=== PATIENT | female | born 1980 | race African-American/Black ===

== ENCOUNTER 2020-04-11 18:01 | Emergency (ER) | payer MEDICAID, SELFPAY ==
[2020-04-11 18:35] VITALS: BP 155/90; PULSE 91; RESP 18; TEMP 36.8; O2SAT 97; BMI 48.0
[2020-04-11 18:44] LABS: Glucose, Whole Blood 312 mg/dL (60-115)
[2020-04-11 21:26] LABS: MANUAL DIFF FLAG NO
[2020-04-11 21:31] LABS: Basophils Absolute Auto 0.1 X10*3/uL (0.0-0.2); Basophils Percent Auto 0.9 % (0-2); Eosinophils Absolute Auto 0.2 X10*3/uL (0.0-0.4); Eosinophils Percent Auto 1.8 % (0-4); Hematocrit 35.7 % (37-47); Hemoglobin 11.5 g/dl (12.0-16.0); Imm Gran Abs Auto 0.03 X10*3/uL (0.00-0.03); Imm Gran Pct Auto 0.3 % (0.0-0.4); Lymphocytes Absolute Auto 3.8 X10*3/uL (1.2-4.9); Lymphocytes Percent Auto 33.9 % (20-40); Mean Corpuscular HGB Conc 32.2 g/dl (31.0-35.0); Mean Corpuscular Hemoglobin 26.8 pg (27.0-33.0); Mean Corpuscular Volume 83.2 fL (80-98); Mean Platelet Volume 11.2 fL (9.4-12.3); Monocytes Absolute Auto 0.8 X10*3/uL (0.1-1.2); Monocytes Percent Auto 7.2 % (2-11); Neutrophils Absolute Auto 6.2 X10*3/uL (2.0-8.3); Neutrophils Percent Auto 55.9 % (45-73); Platelet Count 372 X10*3/uL (160-400); Red Blood Count 4.29 X10*6/uL (4.20-5.50); Red Cell Distribution Width 16.1 % (11.0-16.0); White Blood Count 11.1 X10*3/uL (4.8-10.8)
[2020-04-11 21:37] LABS: Acetone, serum QL Negative (Negative)
[2020-04-11 21:55] LABS: Alanine Aminotransferase 15 U/L (0-31); Alkaline Phosphatase 79 U/L (39-117); Anion Gap 11 (12-20); Aspartate Amino Transferase 12 U/L (5-31); Bilirubin Total 0.2 mg/dL (0.0-1.0); Blood Urea Nitrogen 14 mg/dL (9-16); Carbon Dioxide 26 mmol/L (22-29); Chloride 104 mmol/L (96-108); Creatinine Clr Calc Pharmacy 116.9; Estimated Glomerular Filt Rate 58; Glucose Random 367 mg/dL (60-115); Potassium 4.4 mmol/l (3.3-5.1); Sodium 137 mmol/L (135-145); Total Protein 7.3 g/dL (6.5-8.0)
--- NOTE | 2020-04-11 22:17 | PC.NURSE ---
at bedside for primary eval.
[2020-04-11 22:24] VITALS: BP 116/60; PULSE 92; RESP 20; TEMP 36.7; O2SAT 97
--- NOTE | 2020-04-11 22:24 | PC.NURSE ---
Per MD, plan to obtain UA and proceed from there. Per MD, to hold off on IV until labs are resulted. office automation technician at bedside to update VS. Continue to monitor.
[2020-04-11 22:36] LABS: Glucose Urine UA 500 MG/DL (NEG); Leukocyte Esterase Urine NEG (NEG); Nitrite Urine NEG (NEG); Specific Gravity - Urine >= 1.030 (1.005-1.025); Urine Blood NEG (NEG); Urine Ketones NEG (NEG); Urine Protein NEG (NEG-TRACE)
[2020-04-11 22:41] LABS: Appearance Urine CLEAR; Color Urine YELLOW
[2020-04-11 22:42] LABS: UPreg QC Valid YES; Urine Pregnancy NEGATIVE (NEGATIVE)
--- NOTE | 2020-04-11 22:47 | ED_ITS ---
HPI - General Adult General Chief complaint: General Medical Stated complaint: sugar high Time Seen by Provider: 04/11/20 22:47 Source: patient Mode of arrival: ambulatory History of Present Illness HPI narrative: This is a 39-year-old female who states that she was recently diagnosed with diabetes in September and is currently taking Lantus and was sent in by her program for concerns regarding her elevated sugar level. She states that this is not been associated with any recent fever, chills, sore throat, cough, nausea, vomiting, abdominal discomfort, or urinary pain/burning/frequency. She states that earlier in the day the staff said that she was difficult to wake up but she said that she just ?felt tired?. Otherwise, she denies any urinary frequency or thirst. Review of Systems 2 Review of Systems: Pertinent positives and negatives as stated in HPI 10 point review of systems is otherwise negative. [facility] Past Medical History Source: nursing notes reviewed Medical History Asthma Diabetes Hypertension Social History Social History Advance Directives: No Advance Directives Information Provided: No Physical Exam Vital Signs: Vital Signs: Last Vital Signs Temp 98.0 F 04/11/20 22:24 Pulse 92 04/11/20 22:24 Resp 20 04/11/20 22:24 BP 116/60 04/11/20 22:24 Pulse Ox 97 04/11/20 22:24 Body Mass Index 48.0 VITAL SIGNS: Reviewed. GENERAL: Well developed, well nourished, in no acute distress. HEAD: Normocephalic/atraumatic, EYES: PERRLA, EOMI EARS: Ext canals without abnormality NOSE: Nares patent bilateral OROPHARYNX: no oral lesions noted, posterior pharynx clear NECK: Supple, no adenopathy LUNGS: Normal breath sounds. No adventitious sounds or accessory muscle use. SpO2<97> CARDIOVASCULAR: Regular rate and rhythm without noted murmurs, no JVD or lower extremity edema. ABDOMEN: Soft, non-tender, non-distended with bowel sounds. No rigidity. No guarding. No palpable masses or hernias noted MUSCULOSKELETAL: No tenderness, deformities, or effusions noted on gross inspection. EXTREMITIES: No cyanosis, clubbing or edema. SKIN: Inspection of the skin reveals no rashes NEUROLOGIC: Alert and oriented x 4. Course Course Course Narrative: This is a 39-year-old female with history and clinical p resentation suggestive of hyperglycemia more indicative of poorly controlled diabetes than any sequela associated with this such as DKA or HHS. However, will rule out these conditions as well as any evidence for infection. On review of all investigations there are no acute findings to point towards infection, , and patient will be discharged in stable condition after discussing all of her results with her at bedside and struck shins to follow-up with her primary care provider for additional management of her diabetes. Medical Decision Making Lab Data Result diagrams: 04/11/20 21:19 04/11/20 21:19 Labs: Lab Results 04/11/20 04/11/20 04/11/20 Range/Units 18:38 21:19 21:19 WBC 11.1 H (4.8-10.8) X10*3/uL RBC 4.29 (4.20-5.50) X10*6/uL Hgb 11.5 L (12.0-16.0) g/dl Hct 35.7 L (37-47) % MCV 83.2 (80-98) fL MCH 26.8 L (27.0-33.0) pg MCHC 32.2 (31.0-35.0) g/dl RDW 16.1 H (11.0-16.0) % Plt Count 372 (160-400) X10*3/uL MPV 11.2 (9.4-12.3) fL Immature Gran % (Auto) 0.3 (0.0-0.4) % Neut % (Auto) 55.9 (45-73) % Lymph % (Auto) 33.9 (20-40) % [place] % (Auto) 7.2 (2-11) % Eos % (Auto) 1.8 (0-4) % Baso % (Auto) 0.9 (0-2) % Lymph # (Auto) 3.8 (1.2-4.9) X10*3/uL [place] # (Auto) 0.8 (0.1-1.2) X10*3/uL Eos # (Auto) 0.2 (0.0-0.4) X10*3/uL Baso # (Auto) 0.1 (0.0-0.2) X10*3/uL Abs Immat Gran (auto) 0.03 (0.00-0.03) X10*3/uL Absolute Neuts (auto) 6.2 (2.0-8.3) X10*3/uL Absolute Nucleated RBC 0.000 (0.0-0.012) X10*3/uL Nucleated RBC % (auto) 0.0 (0.0-0.2) /100WBC Hold Blue Top SEE NOTE Sodium (135-145) mmol/L Potassium (3.3-5.1) mmol/l Chloride (96-108) mmol/L Carbon Dioxide (22-29) mmol/L Anion Gap (12-20) BUN (9-16) mg/dL Creatinine (0.5-1.4) mg/dL Estim Creat Clear Calc Estimated GFR POC Glucose 312 H (60-115) mg/dL Random Glucose (60-115) mg/dL Calcium (8.4-10.2) mg/dL Total Bilirubin (0.0-1.0) mg/dL AST (5-31) U/L ALT (0-31) U/L Alkaline Phosphatase (39-117) U/L Total Protein (6.5-8.0) g/dL Albumin (3.5-5.0) g/dL Urine Color Urine Appearance Urine pH (5.0-8.0) Ur Specific [place] (1.005-1.025) Urine Protein (NEG-TRACE) MG/DL Urine Glucose (UA) (NEG) MG/DL Urine Ketones (NEG) MG/DL Urine Blood (NEG) Urine Nitrite (NEG) Ur Leukocyte Esterase (NEG) Urine Test (NEGATIVE) Acetone, Qual (Negative) 04/11/20 04/11/20 04/11/20 Range/Units 21:19 21:19 22:26 WBC (4.8-10.8) X10*3/uL RBC (4.20-5.50) X10*6/uL Hgb (12.0-16.0) g/dl Hct (37-47) % MCV (80-98) fL MCH (27.0-33.0) pg MCHC (31.0-35.0) g/dl RDW (11.0-16.0) % Plt Count (160-400) X10*3/uL MPV (9.4-12.3) fL Immature Gran % (Auto) (0.0-0.4) % Neut % (Auto) (45-73) % Lymph % (Auto) (20-40) % [place] % (Auto) (2-11) % Eos % (Auto) (0-4) % Baso % (Auto) (0-2) % Lymph # (Auto) (1.2-4.9) X10*3/uL [place] # (Auto) (0.1-1.2) X10*3/uL Eos # (Auto) (0.0-0.4) X10*3/uL Baso # (Auto) (0.0-0.2) X10*3/uL Abs Immat Gran (auto) (0.00-0.03) X10*3/uL Absolute Neuts (auto) (2.0-8.3) X10*3/uL Absolute Nucleated RBC (0.0-0.012) X10*3/uL Nucleated RBC % (auto) (0.0-0.2) /100WBC Hold Blue Top Sodium 137 (135-145) mmol/L Potassium 4.4 (3.3-5.1) mmol/l Chloride 104 (96-108) mmol/L Carbon Dioxide 26 (22-29) mmol/L Anion Gap 11 L (12-20) BUN 14 (9-16) mg/dL Creatinine 1.06 (0.5-1.4) mg/dL Estim Creat Clear Calc 116.9 Estimated GFR 58 POC Glucose (60-115) mg/dL Random Glucose 367 H* (60-115) mg/dL Calcium 9.0 (8.4-10.2) mg/dL Total Bilirubin 0.2 (0.0-1.0) mg/dL AST 12 (5-31) U/L ALT 15 (0-31) U/L Alkaline Phosphatase 79 (39-117) U/L Total Protein 7.3 (6.5-8.0) g/dL Albumin 4.0 (3.5-5.0) g/dL Urine Color YELLOW Urine Appearance CLEAR Urine pH 6.0 (5.0-8.0) Ur Specific [place] >= 1.030 H (1.005-1.025) Urine Protein NEG (NEG-TRACE) MG/DL Urine Glucose (UA) 500 H (NEG) MG/DL Urine Ketones NEG (NEG) MG/DL Urine Blood NEG (NEG) Urine Nitrite NEG (NEG) Ur Leukocyte Esterase NEG (NEG) Urine Test NEGATIVE (NEGATIVE) Acetone, Qual Negative (Negative) Discharge Plan Discharge Clinical Impression: Hyperglycemia without ketosis Patient Disposition: Home, Self-Care Instructions: Diabetes and Exercise (ED), Diabetic Hyperglycemia (ED), Mediterranean Diet (DC) Additional Instructions: 1. Please follow-up with your primary care provider by calling the office in the morning for further evaluation and outpatient management of your diabetes. Please do not hesitate to return emergency department should you do developed s hortness of breath, fevers/chills that do not respond to Tylenol, chest pain. Referrals: Physician,Unknown [Primary Care Provider] - 2 days (Re-evaluation and outpatient management of diabetes.)
[2020-04-11 23:24] VITALS: BP 112/55; PULSE 82; RESP 16
[2020-04-11 23:25] LABS: Glucose, Whole Blood 295 mg/dL (60-115)
--- NOTE | 2020-04-11 23:30 | PC.NURSE ---
This RN calling [facility] for transportation home. 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
== END 2020-04-11 23:43 | disposition home or self-care (01) ==
PROVIDERS: Emergency Provider Student in an Organized Health Care Education/Training Program
DX: E11.65 Type 2 diabetes mellitus with hyperglycemia (principal); Z79.4 Long term (current) use of insulin; I10 Essential (primary) hypertension
CPT/HCPCS: 36415; 80053; 81003; 81025; 82009; 82947; 85025; 99283; 99284

== ENCOUNTER 2020-05-04 12:28 | Emergency (ER) | payer MEDICAID, SELFPAY ==
--- NOTE | ~2020-05-04 | XR_ITS ---
EXAMINATION: XR ABDOMEN KUB CLINICAL INDICATION: Evaluate for constipation COMPARISON: None TECHNIQUE: AP view of the abdomen. FINDINGS: The bowel gas pattern is normal with no evidence of ileus or obstruction. There is a moderate amount of dense stool throughout the colon. No unusual soft tissue calcifications are noted. The bones are unremarkable. There are surgical clips in the left upper quadrant. XR/XR KUB IMPRESSION: Nonobstructive bowel gas pattern. Moderate amount of dense stool throughout the colon. Findings may be related to a prior contrast-enhanced examination or fluoroscopic study. Recommend clinical correlation.
[2020-05-04 12:30] VITALS: BP 102/61; PULSE 111; RESP 16; TEMP 36.8; O2SAT 99; BMI 33.0
--- NOTE | 2020-05-04 16:22 | ECG_ITS ---
Test Reason : ABDOMIANL PAIN Blood Pressure : / mmHG Vent. Rate : 095 BPM Atrial Rate : 095 BPM P-R Int : 194 ms QRS Dur : 100 ms QT Int : 372 ms P-R-T Axes : 068 024 066 degrees QTc Int : 467 ms Normal sinus rhythm Normal ECG No previous ECGs available Referred By: Jesus Crespo Electronically Signed By:BRENDA MARTINEZ
--- NOTE | 2020-05-04 16:54 | ED.ABDPAIN ---
HPI - Abdominal Pain General Chief Complaint: Abdominal Pain Stated Complaint: vomiting Time Seen by Provider: 05/04/20 17:53 Source: patient Mode of arrival: ambulatory Limitations: no limitations History of Present Illness HPI narrative: Patient presents to ED for abdominal pain, nausea, and vomiting for the past 2 weeks. Patient states she was recently diagnosed with diabetes in September and since then having having dystonic issues. Patient states pain the right upper quadrant. Patient states no fever or chills. Patient states the past 2 weeks having abdominal pain with nausea. Denies any coughing, chest pain, shortness of breath, swelling of lower extremities, or diarrhea. Related Data Previous Rx's Medication Instructions Recorded lactulose 20 g PO DAILY 3 Days #1 ea 05/04/20 ondansetron HCl [Zofran] 4 mg PO Q8H PRN #8 tab 05/04/20 Allergies Allergy/AdvReac Type Severity Reaction Status Date / Time ibuprofen [From Motrin] AdvReac Dry Mucus Verified 05/04/20 12:32 Membranes morphine AdvReac Dry Mucus Verified 05/04/20 12:32 Membranes Review of Systems Review of Systems Yes all other systems are reviewed and are negative Constitutional: Reports as per HPI and Reports no additional constitutional complaints Eyes: Reports as per HPI and Reports no additional eye complaints Reports system reviewed and no additional complaints, except as documented and Reports as per HPI Cardiovascular: Reports as per HPI and Reports no additional cardiovascular complaints Respiratory: Reports as per HPI and Reports no additional respiratory complaints Gastrointestinal: Reports as per HPI, Reports no additional gastrointestinal complaints, Reports abdominal pain and Reports vomiting Genitourinary: Reports no additional female genitourinary complaints and Reports as per HPI Musculoskeletal: Reports no additional musculoskeletal complaints and Reports as per HPI Reports system reviewed and no additional complaints, except as documented and Reports as per HPI Psychiatric: Reports no additional psychiatric complaints and Reports as per HPI Physical Exam Vital Signs: Vital Signs: Last Vital Signs Temp 99 F 05/04/20 17:50 Pulse 90 05/04/20 20:09 Resp 15 05/04/20 20:09 BP 115/70 05/04/20 20:09 Pulse Ox 99 05/04/20 20:09 Body Mass Index 33.0 Const: General: cooperative, healthy appearing, comfortable, no acute distress and well developed Orientation/consciousness: patient oriented x3 HENMT: Head: Yes normal to inspection, Yes No palpable skull fracture present, Yes normocephalic, Yes atraumatic and No abrasion Eyes: General: appearance normal, both eyes and all related structures Neck: Neck: Yes normal visual inspection, Yes full ROM, Yes no lymphadenopathy, Yes no meningeal signs, Yes trachea midline, Yes supple and No tender Chest: Chest palpation & inspection: normal inspection of the chest and normal palpation of entire chest wall Resp: Effort & Inspection: normal respiratory effort and able to speak in complete sentences Cardio: Jugular venous distension: no JVD Heart sounds: S1 normal heart sound present and S2 normal heart sound present GI: Inspection: No abdominal wall ecchymosis Palpation (GI): Soft to palpation, not firm, Tenderness to palpation present (GI) in the RUQ (mild); not at McBurney's point, not periumbilically, not suprapubicly, Tate's sign negative, obturator sign negative, psoas sign negative, with no rebound tenderness and Rovsing's sign negative, no guarding and not rigid : General: Yes no CVA tenderness Back/Spine/Pelvis: Back: no CVA tenderness, No CVA tenderness and No back tenderness Skin: General skin exam: no rashes or lesions noted and elasticity normal Neuro: General: patient oriented x3, no meningeal signs and CN's II-XI intact bilaterally Cranial nerves: Yes CN's II-XII intact bilaterally Extrem: General: Yes normal to inspection and Yes full ROM Psych: Appearance: grossly normal, well kempt and not disheveled Course Course Course Narrative: Patient will have lab work, fluids, pain medication. Patient also had EKG and 1 troponin due to history of diabetes. Patient also had a fingerstick. Differentials gastroparesis. Will send a liver enzymes Reevaluation(s) Reevaluation #1: Nurse came and spoke to me and informed me that patient told her that she has not had bowel movement in 2 weeks. Due to this new information patient will be sent for abdominal x-ray to rule out small-bowel obstruction Time: 16:49 Reevaluation #2: X-ray shows constipation and negative for bowel obstruction. This is the cause of patient's belly pain for 2 weeks and patient states not having a bowel movement for the past 2 weeks. Magnesium citrate ordered. Patient prefers to drinking before she is discharged so she can have a bowel movement at home Time: 20:38 Reevaluation #3: Patient labs are normal. Negative troponin. Liver enzymes are normal. Negative Tate sign on re-evaluation. Urine negative for UTI. Time: 20:39 MDM - Abdominal Pain MDM Narrative Medical decision making narrative: Constipate Lab Data Result diagrams: 05/04/20 19:23 05/04/20 19:23 Labs: Lab Results 05/04/20 05/04/20 05/04/20 Range/Units 16:49 19:23 19:23 WBC 13.9 H (4.8-10.8) X10*3/uL RBC 4.65 (4.20-5.50) X10*6/uL Hgb 12.2 (12.0-16.0) g/dl Hct 39.0 (37-47) % MCV 83.9 (80-98) fL MCH 26.2 L (27.0-33.0) pg MCHC 31.3 (31.0-35.0) g/dl RDW 16.7 H (11.0-16.0) % Plt Count 347 (160-400) X10*3/uL MPV 11.3 (9.4-12.3) fL Immature Gran % (Auto) 0.3 (0.0-0.4) % Neut % (Auto) 52.7 (45-73) % Lymph % (Auto) 36.8 (20-40) % [place] % (Auto) 8.8 (2-11) % Eos % (Auto) 0.8 (0-4) % Baso % (Auto) 0.6 (0-2) % Lymph # (Auto) 5.1 H (1.2-4.9) X10*3/uL [place] # (Auto) 1.2 (0.1-1.2) X10*3/uL Eos # (Auto) 0.1 (0.0-0.4) X10*3/uL Baso # (Auto) 0.1 (0.0-0.2) X10*3/uL Abs Immat Gran (auto) 0.04 H (0.00-0.03) X10*3/uL Absolute Neuts (auto) 7.3 (2.0-8.3) X10*3/uL Absolute Nucleated RBC 0.000 (0.0-0.012) X10*3/uL Nucleated RBC % (auto) 0.0 (0.0-0.2) /100WBC Smear Tech's Comments VERIFIED PT 15.0 H (10.8-13.0) SEC INR 1.3 H (0.9-1.1) APTT 34.2 (24.1-38.0) SEC Sodium (135-145) mmol/L Potassium (3.3-5.1) mmol/L Chloride (96-108) mmol/L Carbon Dioxide (22-29) mmol/L Anion Gap (12-20) BUN (9-16) mg/dL Creatinine (0.5-1.4) mg/dL Estim Creat Clear Calc Estimated GFR POC Glucose (60-115) mg/dL Random Glucose (60-115) mg/dL Calcium (8.4-10.2) mg/dL Total Bilirubin (0.0-1.0) mg/dL Direct Bilirubin (0.0-0.5) mg/dL AST (5-31) U/L ALT (0-31) U/L Alkaline Phosphatase (39-117) U/L Troponin I High Sens (<3.5-17.0) ng/L Total Protein (6.5-8.0) g/dL Albumin (3.5-5.0) g/dL Lipase (8-78) U/L Beta HCG, Quant mIU/mL Urine Color KANDACE Urine Appearance HAZY Urine pH 6.5 (5.0-8.0) Ur Specific [place] >= 1.030 H (1.005-1.025) Urine Protein 2+ H (NEG-TRACE) MG/DL Urine Glucose (UA) NEG (NEG) MG/DL Urine Ketones 15 (NEG) MG/DL Urine Blood NEG (NEG) Urine Nitrite NEG (NEG) Ur Leukocyte Esterase NEG (NEG) Urine RBC 0 (0) /HPF Urine WBC 15-29 H (0-4) /HPF Ur Squamous Epith Cells 2+ /LPF Urine Bacteria TRACE /LPF Urine Mucus 2+ /LPF Acetone, Qual (Negative) 05/04/20 05/04/20 05/04/20 Range/Units 19:23 19:23 19:23 WBC (4.8-10.8) X10*3/uL RBC (4.20-5.50) X10*6/uL Hgb (12.0-16.0) g/dl Hct (37-47) % MCV (80-98) fL MCH (27.0-33.0) pg MCHC (31.0-35.0) g/dl RDW (11.0-16.0) % Plt Count (160-400) X10*3/uL MPV (9.4-12.3) fL Immature Gran % (Auto) (0.0-0.4) % Neut % (Auto) (45-73) % Lymph % (Auto) (20-40) % [place] % (Auto) (2-11) % Eos % (Auto) (0-4) % Baso % (Auto) (0-2) % Lymph # (Auto) (1.2-4.9) X10*3/uL [place] # (Auto) (0.1-1.2) X10*3/uL Eos # (Auto) (0.0-0.4) X10*3/uL Baso # (Auto) (0.0-0.2) X10*3/uL Abs Immat Gran (auto) (0.00-0.03) X10*3/uL Absolute Neuts (auto) (2.0-8.3) X10*3/uL Absolute Nucleated RBC (0.0-0.012) X10*3/uL Nucleated RBC % (auto) (0.0-0.2) /100WBC Smear Tech's Comments PT (10.8-13.0) SEC INR (0.9-1.1) APTT (24.1-38.0) SEC Sodium 145 (135-145) mmol/L Potassium 3.7 (3.3-5.1) mmol/L Chloride 108 (96-108) mmol/L Carbon Dioxide 25 (22-29) mmol/L Anion Gap 16 (12-20) BUN 16 (9-16) mg/dL Creatinine 1.06 (0.5-1.4) mg/dL Estim Creat Clear Calc 94.9 Estimated GFR 58 POC Glucose (60-115) mg/dL Random Glucose 89 D (60-115) mg/dL Calcium 8.6 (8.4-10.2) mg/dL Total Bilirubin 0.3 (0.0-1.0) mg/dL Direct Bilirubin 0.2 (0.0-0.5) mg/dL AST 16 (5-31) U/L ALT 10 (0-31) U/L Alkaline Phosphatase 64 (39-117) U/L Troponin I High Sens < 3.5 (<3.5-17.0) ng/L Total Protein 7.3 (6.5-8.0) g/dL Albumin 4.1 (3.5-5.0) g/dL Lipase 10 (8-78) U/L Beta HCG, Quant < 2 mIU/mL Urine Color Urine Appearance Urine pH (5.0-8.0) Ur Specific [place] (1.005-1.025) Urine Protein (NEG-TRACE) MG/DL Urine Glucose (UA) (NEG) MG/DL Urine Ketones (NEG) MG/DL Urine Blood (NEG) Urine Nitrite (NEG) Ur Leukocyte Esterase (NEG) Urine RBC (0) /HPF Urine WBC (0-4) /HPF Ur Squamous Epith Cells /LPF Urine Bacteria /LPF Urine Mucus /LPF Acetone, Qual Negative (Negative) 05/04/20 Range/Units 20:12 WBC (4.8-10.8) X10*3/uL RBC (4.20-5.50) X10*6/uL Hgb (12.0-16.0) g/dl Hct (37-47) % MCV (80-98) fL MCH (27.0-33.0) pg MCHC (31.0-35.0) g/dl RDW (11.0-16.0) % Plt Count (160-400) X10*3/uL MPV (9.4-12.3) fL Immature Gran % (Auto) (0.0-0.4) % Neut % (Auto) (45-73) % Lymph % (Auto) (20-40) % [place] % (Auto) (2-11) % Eos % (Auto) (0-4) % Baso % (Auto) (0-2) % Lymph # (Auto) (1.2-4.9) X10*3/uL [place] # (Auto) (0.1-1.2) X10*3/uL Eos # (Auto) (0.0-0.4) X10*3/uL Baso # (Auto) (0.0-0.2) X10*3/uL Abs Immat Gran (auto) (0.00-0.03) X10*3/uL Absolute Neuts (auto) (2.0-8.3) X10*3/uL Absolute Nucleated RBC (0.0-0.012) X10*3/uL Nucleated RBC % (auto) (0.0-0.2) /100WBC Smear Tech's Comments PT (10.8-13.0) SEC INR (0.9-1.1) APTT (24.1-38.0) SEC Sodium (135-145) mmol/L Potassium (3.3-5.1) mmol/L Chloride (96-108) mmol/L Carbon Dioxide (22-29) mmol/L Anion Gap (12-20) BUN (9-16) mg/dL Creatinine (0.5-1.4) mg/dL Estim Creat Clear Calc Estimated GFR POC Glucose 95 (60-115) mg/dL Random Glucose (60-115) mg/dL Calcium (8.4-10.2) mg/dL Total Bilirubin (0.0-1.0) mg/dL Direct Bilirubin (0.0-0.5) mg/dL AST (5-31) U/L ALT (0-31) U/L Alkaline Phosphatase (39-117) U/L Troponin I High Sens (<3.5-17.0) ng/L Total Protein (6.5-8.0) g/dL Albumin (3.5-5.0) g/dL Lipase (8-78) U/L Beta HCG, Quant mIU/mL Urine Color Urine Appearance Urine pH (5.0-8.0) Ur Specific [place] (1.005-1.025) Urine Protein (NEG-TRACE) MG/DL Urine Glucose (UA) (NEG) MG/DL Urine Ketones (NEG) MG/DL Urine Blood (NEG) Urine Nitrite (NEG) Ur Leukocyte Esterase (NEG) Urine RBC (0) /HPF Urine WBC (0-4) /HPF Ur Squamous Epith Cells /LPF Urine Bacteria /LPF Urine Mucus /LPF Acetone, Qual (Negative) ECG Data Interpretation: Normal sinus rhythm. Normal EKG. Negative STEMI. Ventricular rate 95. Pr interval 194. QRS 100. QTC 467. Discharge Plan Discharge Clinical Impression: Constipation Patient Disposition: Home, Self-Care Instructions: Constipation (ED) Additional Instructions: Return to the ED for worsening abdominal pain, nausea, vomiting, fever, chills, chest pain, shortness of breath, or any other concerning symptoms. Please follow-up with the PCP. EKG was normal. Troponin negative. Electrolytes are normal. Cell blood cell count was normal. Liver enzymes normal. Lipase enzyme normal. Prescriptions: New lactulose 10 gram packet 20 g PO DAILY 3 Days Qty: 1 RF: 0 ondansetron HCl [Zofran] 4 mg tablet 4 mg PO Q8H PRN (Reason: nausea) Qty: 8 RF: 0 Interventions: ED Discharge Assessment Last Done: 05/04/20 21:14 Discharge Date/Time: 05/04/20 21:19 Print Language: Sami [facility] Past Medical History Medical History Asthma Diabetes Hypertension Social History Social History Smoking Status: Current every day smoker Smoked in Last 30 Days: Yes Use of substances other than those prescribed or required for medical reasons: No Advance Directives: Yes Advance Directives Information Provided: Yes Advance Directives on File: No
[2020-05-04 16:59] LABS: Glucose Urine UA NEG (NEG); Leukocyte Esterase Urine NEG (NEG); Nitrite Urine NEG (NEG); PH 6.5 (5.0-8.0); Specific Gravity - Urine >= 1.030 (1.005-1.025); Urine Blood NEG (NEG); Urine Ketones 15 MG/DL (NEG); Urine Protein 2+ MG/DL (NEG-TRACE)
[2020-05-04 17:00] LABS: Appearance Urine HAZY; Color Urine AMBER
[2020-05-04 17:06] LABS: Bacteria Urine TRACE /LPF; Mucus Urine 2+ /LPF; RBC Urine 0 /HPF (0); Squamous Epithelial Cell Urine 2+ /LPF; UACC CULT YES
[2020-05-04] MEDS: 0.9 % Sodium Chloride 1,000 ML 999 ML IV (17:08)
[2020-05-04] MEDS: Famotidine/PF 20 MG/2 ML VIAL IVPUSH (17:09)
[2020-05-04] MEDS: ondansetron HCL 4 MG/2 ML VIAL IVPUSH ×2 (17:10→21:07)
[2020-05-04 17:50] VITALS: BP 116/75; PULSE 88; RESP 16; TEMP 37.2; O2SAT 98
[2020-05-04 19:35] LABS: Basophils Absolute Auto 0.1 X10*3/uL (0.0-0.2); Basophils Percent Auto 0.6 % (0-2); Eosinophils Absolute Auto 0.1 X10*3/uL (0.0-0.4); Eosinophils Percent Auto 0.8 % (0-4); Hemoglobin 12.2 g/dl (12.0-16.0); Imm Gran Abs Auto 0.04 X10*3/uL (0.00-0.03); Imm Gran Pct Auto 0.3 % (0.0-0.4); Lymphocytes Absolute Auto 5.1 X10*3/uL (1.2-4.9); Lymphocytes Percent Auto 36.8 % (20-40); MANUAL DIFF FLAG SCAN; Mean Corpuscular HGB Conc 31.3 g/dl (31.0-35.0); Mean Corpuscular Hemoglobin 26.2 pg (27.0-33.0); Mean Corpuscular Volume 83.9 fL (80-98); Mean Platelet Volume 11.3 fL (9.4-12.3); Monocytes Absolute Auto 1.2 X10*3/uL (0.1-1.2); Monocytes Percent Auto 8.8 % (2-11); Neutrophils Absolute Auto 7.3 X10*3/uL (2.0-8.3); Neutrophils Percent Auto 52.7 % (45-73); Platelet Count 347 X10*3/uL (160-400); Red Blood Count 4.65 X10*6/uL (4.20-5.50); Red Cell Distribution Width 16.7 % (11.0-16.0); SCAN SMEAR FLAG 1; White Blood Count 13.9 X10*3/uL (4.8-10.8)
[2020-05-04 19:39] LABS: INTERNATIONAL NORM RATIO 1.3 (0.9-1.1)
[2020-05-04 19:42] LABS: Partial Thromboplastin Time 34.2 SEC (24.1-38.0)
[2020-05-04 19:55] LABS: SLIDE REVIEW VERIFIED
[2020-05-04 20:01] LABS: Alanine Aminotransferase 10 U/L (0-31); Albumin Level 4.1 g/dL (3.5-5.0); Alkaline Phosphatase 64 U/L (39-117); Anion Gap 16 (12-20); Aspartate Amino Transferase 16 U/L (5-31); Bilirubin Direct 0.2 mg/dL (0.0-0.5); Bilirubin Total 0.3 mg/dL (0.0-1.0); Blood Urea Nitrogen 16 mg/dL (9-16); Calcium 8.6 mg/dL (8.4-10.2); Carbon Dioxide 25 mmol/L (22-29); Chloride 108 mmol/L (96-108); Creatinine Clr Calc Pharmacy 94.9; Estimated Glomerular Filt Rate 58; Glucose Random 89 mg/dL (60-115); Lipase 10 U/L (8-78); Potassium 3.7 mmol/L (3.3-5.1); Sodium 145 mmol/L (135-145); Total Protein 7.3 g/dL (6.5-8.0)
[2020-05-04 20:04] LABS: Troponin-I High Sensitivity < 3.5 ng/L (<3.5-17.0)
[2020-05-04 20:07] LABS: HCG Quantitative < 2 mIU/mL
--- NOTE | 2020-05-04 20:07 | PC.NURSE ---
please call [phone] for right home
[2020-05-04 20:09] VITALS: BP 115/70; PULSE 90; RESP 15; O2SAT 99
[2020-05-04] MEDS: Magnesium Citrate 300 ML SOLUTION PO (20:09)
[2020-05-04 20:15] LABS: Glucose, Whole Blood 95 mg/dL (60-115)
[2020-05-04 20:29] LABS: Acetone, serum QL Negative (Negative)
--- NOTE | 2020-05-04 21:11 | PC.NURSE ---
Report rec'd from MITALI Joya at 190. Pt resting on stretcher, continues to endorse intermittent sharp abd pain. Pt tolerating PO. Pt DC with prescriptions for lactulose and zofran. Pt from [facility], staff contacted at [phone] to notify them that pt is DC. 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
== END 2020-05-04 21:19 | disposition home or self-care (01) ==
PROVIDERS: Physician Assistant; Emergency Provider Internal Medicine
DX: K59.00 Constipation, unspecified (principal); E11.9 Type 2 diabetes mellitus without complications; I10 Essential (primary) hypertension
CPT/HCPCS: 36415; 74018; 80053; 80076; 81001; 81003; 82009; 82248; 82947; 83690; 84484; 84702; 85025; 85610; 85730; 87086; 93005; 96361; 96374; 96375; 96376; 99284; 99285; J2405

== ENCOUNTER 2020-07-03 11:00 | Emergency (ER) | payer MEDICAID, SELFPAY ==
--- NOTE | ~2020-07-03 | US_ITS ---
EXAMINATION: US PELVIS LIMITED (BLADDER) CLINICAL INFORMATION: Question of mass seen at the dome of the bladder on CT scan performed earlier today. COMPARISON: CT scan today TECHNIQUE: Real-time imaging of the bladder. FINDINGS: BLADDER: Well distended and normal. No bladder masses are seen and therefore the finding on the CT scan was artifactual. Bilateral ureteral jets are demonstrated. US/US bladder IMPRESSION: Normal bladder without mass..
--- NOTE | ~2020-07-03 | CT_ITS ---
EXAMINATION: CT ABDOMEN AND PELVIS WITH CONTRAST CLINICAL INFORMATION: Diffuse abdominal pain COMPARISON: None TECHNIQUE: Multidetector volumetric images were obtained from the superior aspect of the liver through the pubic symphysis following administration 85 mL of Omnipaque 350 intravenous contrast. Sagittal and coronal reformatted images were obtained on the technologist's workstation. Oral contrast: No This CT examination was performed using dose optimization techniques as appropriate, variously including the following: *Automated exposure control *Adjustment of mA and/or kV according to patient size (this includes techniques or standardized protocols for targeted exams where dose is matched to indication/reason for exam; i.e. extremities or head) *Use of iterative reconstruction technique DLP: 1161 mGy-cm FINDINGS: LUNG BASES: A 3 mm nodule is seen along the major fissure in the right lower lobe (4:1). The lung bases otherwise appear unremarkable LIVER, GALLBLADDER, AND BILIARY TREE: The liver is enlarged measuring 23 cm in cephalocaudad dimension and demonstrates decreased attenuation suggesting hepatic steatosis. No focal liver lesion or biliary ductal dilatation is seen. The gallbladder is unremarkable with no evidence of radiopaque gallstones, gallbladder wall thickening, or obvious pericholecystic inflammatory changes. PANCREAS: Unremarkable. SPLEEN: Small accessory spleens are noted in the left upper quadrant the largest measuring 2.5 cm. ADRENAL GLANDS: Unremarkable. KIDNEYS AND URETERS: The right kidney appears normal. The left kidney demonstrates multiple areas of cortical scarring in the mid and lower pole. No renal calculi are seen. No renal masses are seen. No hydronephrosis is present. BLADDER: The bladder appears abnormal with high density seen near the dome of the bladder suggesting the possibility of a mass however this may be artifactual. Bladder ultrasound is recommended for further evaluation. GASTROINTESTINAL TRACT: The small and large bowel are unremarkable. The appendix is unremarkable. ABDOMINAL WALL: No significant hernia is appreciated. LYMPH NODES: No retroperitoneal lymphadenopathy seen. Small bilateral inguinal lymph nodes are present. VASCULAR: Unremarkable. PELVIC VISCERA: An anteverted uterus is present. An abnormal adnexal mass is not seen. No free intraperitoneal fluid is present OSSEOUS STRUCTURES: Degenerative changes are present at L5-S1. No bony destructive lesions seen. 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 CT/CT abdomen pelvis w con IMPRESSION: A cause for the patient's diffuse acute abdominal pain has not been found. Incidental note made of: 1. Enlarged fatty liver 2. 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 3. Left renal scarring. This could be from trauma which may have been the culprit causing a splenectomy. Please correlate with history. 4. Degenerative changes L5-S1 5. Question of a mass at the dome of the bladder. Bladder ultrasound is recommended for further evaluation.
[2020-07-03 11:05] VITALS: BP 127/72; PULSE 101; RESP 18; TEMP 36.8; O2SAT 96; BMI 28.7
[2020-07-03 11:15] LABS: Glucose, Whole Blood 540 mg/dL (60-115)
--- NOTE | 2020-07-03 11:31 | ECG_ITS ---
Test Reason : HIGH GLUCOSE Blood Pressure : / mmHG Vent. Rate : 090 BPM Atrial Rate : 090 BPM P-R Int : 196 ms QRS Dur : 090 ms QT Int : 366 ms P-R-T Axes : 061 012 057 degrees QTc Int : 447 ms Normal sinus rhythm Normal ECG When compared with ECG of 04-MAY-2020 16:47, No significant change was found Referred By: Mervat Chi Electronically Signed By:BRENDA MARTINEZ
[2020-07-03 11:32] VITALS: BP 131/59; PULSE 97; RESP 19; TEMP 37.1; O2SAT 98
[2020-07-03 11:46] LABS: Glucose, Whole Blood 530 mg/dL (60-115)
--- NOTE | 2020-07-03 12:01 | PC.NURSE ---
2 attempts at iv access unsuccesful using veinfinder. second rn at bedside attempting access and blood labs.
[2020-07-03 12:08] LABS: MANUAL DIFF FLAG NO
[2020-07-03] MEDS: 0.9 % Sodium Chloride 1,000 ML 999 ML IVCONT (12:09)
[2020-07-03 12:18] LABS: Basophils Absolute Auto 0.1 X10*3/uL (0.0-0.2); Basophils Percent Auto 0.8 % (0-2); Eosinophils Absolute Auto 0.2 X10*3/uL (0.0-0.4); Eosinophils Percent Auto 1.5 % (0-4); Hematocrit 39.2 % (37-47); Hemoglobin 12.5 g/dl (12.0-16.0); Imm Gran Abs Auto 0.03 X10*3/uL (0.00-0.03); Imm Gran Pct Auto 0.3 % (0.0-0.4); Lymphocytes Absolute Auto 3.9 X10*3/uL (1.2-4.9); Mean Corpuscular HGB Conc 31.9 g/dl (31.0-35.0); Mean Corpuscular Hemoglobin 25.8 pg (27.0-33.0); Mean Corpuscular Volume 80.8 fL (80-98); Mean Platelet Volume 12.1 fL (9.4-12.3); Monocytes Absolute Auto 0.9 X10*3/uL (0.1-1.2); Monocytes Percent Auto 7.2 % (2-11); Neutrophils Absolute Auto 6.7 X10*3/uL (2.0-8.3); Neutrophils Percent Auto 57.2 % (45-73); Platelet Count 292 X10*3/uL (160-400); Red Blood Count 4.85 X10*6/uL (4.20-5.50); Red Cell Distribution Width 17.8 % (11.0-16.0); White Blood Count 11.8 X10*3/uL (4.8-10.8)
[2020-07-03 12:19] LABS: INTERNATIONAL NORM RATIO 1.1 (0.9-1.1); Prothrombin Time 13.5 SEC (10.8-13.0)
[2020-07-03 12:50] LABS: Troponin-I High Sensitivity < 3.5 ng/L (<3.5-17.0)
[2020-07-03 13:22] LABS: Glucose Urine UA >=1000 MG/DL (NEG); Leukocyte Esterase Urine NEG (NEG); Nitrite Urine NEG (NEG); Urine Blood TRACE (NEG); Urine Ketones NEG (NEG); Urine Protein TRACE MG/DL (NEG-TRACE)
[2020-07-03 13:23] LABS: Appearance Urine CLOUDY; Color Urine YELLOW
[2020-07-03 13:42] LABS: Bacteria Urine TRACE /LPF; RBC Urine 0-2 /HPF (0); Squamous Epithelial Cell Urine 1+ /LPF
[2020-07-03 13:43] LABS: Amorphous Sediment Urine 1+ /LPF
--- NOTE | 2020-07-03 15:10 | PC.NURSE ---
pt labs hemolyzed, confirmed by chemistry, repeat labs drawn and sent.
--- NOTE | 2020-07-03 15:11 | ED_ITS ---
HPI - Recheck/Abnormal Lab/Rx General Chief Complaint: Recheck/Abnormal Lab/Rx Stated Complaint: HBS Time Seen by Provider: 07/03/20 11:30 Source: patient Mode of arrival: ambulatory Limitations: no limitations History of Present Illness HPI narrative: 39-year-old female with a past medical history of diabetes laurie ntly on 50 units of insulin at bedtime she reports she was also on Humalog unknown dosing, hypertension and asthma presenting to the ED with complaints of an elevated glucose level that read high per patient and not having any more insulin since she has been at [facility]. She reports over the past few weeks associated urinary urgency/frequency, polydipsia and polyuria and abdominal pain worse today. Patient also reports a separate complaint of cottage cheese like discharge for the past few days she reports I think I have a yeast infection. Denies any fevers, chills, dizziness, headaches, sore throat, nasal congestion/runny nose, neck pain/stiffness, cough, chest pain, shortness of nalini th, dyspnea on exertion, orthopnea, palpitations, N/V, diarrhea, constipation bloody or black stools. MD complaint: abnormal lab Related Data Previous Rx's Medication Instructions Recorded lactulose 20 g PO DAILY 3 Days #1 ea 05/04/20 ondansetron HCl [Zofran] 4 mg PO Q8H PRN #8 tab 05/04/20 fluconazole [Diflucan] 150 mg PO Q3D #2 tab 07/03/20 insulin glargine [Lantus Solostar 50 unit SUBCUT QPM #15 ml 07/03/20 U-100 Insulin] insulin lispro protamin-lispro 5 unit SUBCUT .achs #15 ml 07/03/20 [Humalog Mix 50-50 KwikPen] Allergies Allergy/AdvReac Type Severity Reaction Status Date / Time ibuprofen [From Motrin] AdvReac Dry Mucus Verified 07/03/20 11:09 Membranes morphine AdvReac Dry Mucus Verified 07/03/20 11:09 Membranes Review of Systems Review of Systems: Constitutional : No Weight loss, No Fever, No Chills, No Night Sweats, No Fatigue, NoMalaise ENT/Mouth: No ear pain, No sore throat, No Difficulty swallowing Cardiovascular : No Chest Pain, No SOB, No Dyspnea on Exertion, No Orthopnea, NoEdema, No Palpitations Respiratory : No Cough, No Sputum, No Wheezing, No Dyspnea Gastrointestinal : + Abdominal pain, No Nausea, No Vomiting, No Diarrhea, No blood streaked emesis, No coffee-ground emesis, No gross hematemesis, No blood streak stool, No gross hematochezia, No Melena Genitourinary : + cottage cheese vaginal discharge, + urinary urgency/frequency, No irregular bleeding, No Dysuria, No Hematuria, No Urinary Incontinence, No Flank Pain Musculoskeletal : No joint pain, No Myalgias, No Joint Swelling Skin : No Skin Lesions, No rash Neuro : No Weakness, No Numbness, No Paresthesias, No Loss of Consciousness, NoDizziness, No Headache Psych : No Social Issues, Heme/Lymph: No Bruising, No Bleeding,No Lymphadenopathy Endocrine : + Polyuria, + Polydipsia, No Temperature Intolerance Yes all other systems are reviewed and are negative [facility] Past Medical History Attestation statement: The following information was validated with the patient. Medical History Asthma Diabetes Hypertension Social History Social History Alcohol intake: never Smoking Status: Current every day smoker Use of substances other than those prescribed or required for medical reasons: No Advance Directives: No Advance Directives Information Provided: No Physical Exam Vital Signs: Vital Signs: Last Vital Signs Temp 98.7 F 07/03/20 11:32 Pulse 97 07/03/20 11:32 Resp 19 07/03/20 11:32 BP 131/59 L 07/03/20 11:32 Pulse Ox 98 07/03/20 11:32 Body Mass Index 28.7 vital signs have been reviewed as normal and appeared to be correct. Blood pressure normal. Heart rate tachycardic at 101. Respiration rate normal. Tem perature normal. Oxygen saturation normal. Appearance: Alert. Oriented X3. No acute distress. Head: Normal external exam. Normocephalic. Eyes: PERRLA. EOMI. Conjunctiva and sclera normal. Eyelids normal. ENT: Pharynx normal. Uvula midline. Moist mucous membranes. Neck: Normal inspection. Neck supple. FROM. No adenopathy. No meningeal signs. CVS: Normal heart rate and rhythm. Heart sound normal. No murmurs noted. Pulses normal throughout. Respiratory: No respiratory distress. Painless inspiration. Breath sounds normal. No wheezes/rales/rhonchi noted. Chest nontender. No accessory muscle usage noted or decreased air movement noted. Abdomen: Soft and mild tenderness diffusely. Nondistended. No guarding. No rigidity. Bowel sounds normal in all 4 quadrants. No distention noted. No organomegaly noted. No visible injury noted. No rebound tenderness. Negative Rovsing sign. Negative obturator's sign. Negative psoas sign. Negative Tate sign. Back: No CVA tenderness. Full range of motion noted. Skin: Skin warm and dry. Normal skin color. Normal skin turgor. No rashes/lesions/lacerations noted. Extremities: Extremities exhibit normal range of motion. Extremities nontender. Neuro: Oriented X 3. No motor deficit. No sensory deficit. Reflexes normal. Course Course Course Narrative: 11:30am - 39-year-old female with a past medical history of diabetes currently on 50 units of insulin of Lantus at bedtime and Humalog unknown dosing presenting to the ED with complaints of elevated glucose reading high prior to arrival, abdominal pain with associated polyuria/polydipsia/increased urgency/frequency and cottage cheese like vaginal discharge. Plan: Labs, bacterial vaginosis/Trichomonas/yeast and gonorrhea chlamydia cultures, UA, UHCG, CT scan of abdomen and pelvis with IV contrast provide a L of IV fluids and re-evaluate. Reevaluation(s) Reevaluation #1: - patient's labs hemolyzed earlier therefore she had to be redrawn labs returned and revealed an elevated white blood cell count at 11,000. - sodium 134. - sodium 484 - UA with a 1000 of glucose otherwise no evidence of UTI - acetone level was negative - patient negative for gonorrhea/chlamydia/RSV/flu/COVID - pending Trichomonas and bacterial vaginosis - although patient had yeast in her urine therefore will treat for yeast infection with Diflucan - patient was also given 9 units of IV insulin - patient just went to CT scan of abdomen and pelvis with IV contrast will re- evaluate. Time: 16:25 Reevaluation #2: - CT scan of abdomen and pelvis revealed mostly chronic changes although they are questioning of a mass at the dome of the bladder and they are recommending a bladder ultrasound for further evaluation and treatment therefore at this time bladder ultrasound placed Time: 17:26 MDM - Recheck/Abnormal Lab/Rx Medical Records Attestation: I reviewed the patient's medical records. Lab Data Attestation: I reviewed the patient's lab results. Result diagrams: 07/03/20 12:04 07/03/20 14:52 Labs: Lab Results 07/03/20 07/03/20 07/03/20 Range/Units 11:11 11:41 12:04 WBC 11.8 H (4.8-10.8) X10*3/uL RBC 4.85 (4.20-5.50) X10*6/uL Hgb 12.5 (12.0-16.0) g/dl Hct 39.2 (37-47) % MCV 80.8 (80-98) fL MCH 25.8 L (27.0-33.0) pg MCHC 31.9 (31.0-35.0) g/dl RDW 17.8 H (11.0-16.0) % Plt Count 292 (160-400) X10*3/uL MPV 12.1 (9.4-12.3) fL Immature Gran % (Auto) 0.3 (0.0-0.4) % Neut % (Auto) 57.2 (45-73) % Lymph % (Auto) 33.0 (20-40) % [place] % (Auto) 7.2 (2-11) % Eos % (Auto) 1.5 (0-4) % Baso % (Auto) 0.8 (0-2) % Lymph # (Auto) 3.9 (1.2-4.9) X10*3/uL [place] # (Auto) 0.9 (0.1-1.2) X10*3/uL Eos # (Auto) 0.2 (0.0-0.4) X10*3/uL Baso # (Auto) 0.1 (0.0-0.2) X10*3/uL Abs Immat Gran (auto) 0.03 (0.00-0.03) X10*3/uL Absolute Neuts (auto) 6.7 (2.0-8.3) X10*3/uL Absolute Nucleated RBC 0.000 (0.0-0.012) X10*3/uL Nucleated RBC % (auto) 0.0 (0.0-0.2) /100WBC PT (10.8-13.0) SEC INR (0.9-1.1) Sodium (135-145) mmol/L Potassium (3.3-5.1) mmol/L Chloride (96-108) mmol/L Carbon Dioxide (22-29) mmol/L Anion Gap (12-20) BUN (9-16) mg/dL Creatinine (0.5-1.4) mg/dL Estim Creat Clear Calc Estimated GFR POC Glucose 540 H* 530 H* (60-115) mg/dL Random Glucose (60-115) mg/dL Calcium (8.4-10.2) mg/dL Magnesium (1.6-2.6) mg/dL Total Bilirubin (0.0-1.0) mg/dL Direct Bilirubin (0.0-0.5) mg/dL AST (5-31) U/L ALT (0-31) U/L Alkaline Phosphatase (39-117) U/L Troponin I High Sens (<3.5-17.0) ng/L Total Protein (6.5-8.0) g/dL Albumin (3.5-5.0) g/dL Lipase (8-78) U/L Urine Color Urine Appearance Urine pH (5.0-8.0) Ur Specific Jackson (1.005-1.025) Urine Protein (NEG-TRACE) MG/DL Urine Glucose (UA) (NEG) MG/DL Urine Ketones (NEG) MG/DL Urine Blood (NEG) Urine Nitrite (NEG) Ur Leukocyte Esterase (NEG) Urine RBC (0) /HPF Urine WBC (0-4) /HPF Ur Squamous Epith Cells /LPF Amorphous Sediment /LPF Urine Bacteria /LPF Urine Yeast /HPF Urine Test (NEGATIVE) Acetone, Qual (Negative) Chlam trachomat DNA PCR (Not Detect.) Coronavirus (PCR) (Negative) Influenza Type A (PCR) (Negative) Influenza Type B (PCR) (Negative) N.gonorrhoeae DNA (PCR) (Not Detect.) RSV RNA Qual (PCR) (Negative) 07/03/20 07/03/20 07/03/20 Range/Units 12:04 12:04 13:04 WBC (4.8-10.8) X10*3/uL RBC (4.20-5.50) X10*6/uL Hgb (12.0-16.0) g/dl Hct (37-47) % MCV (80-98) fL MCH (27.0-33.0) pg MCHC (31.0-35.0) g/dl RDW (11.0-16.0) % Plt Count (160-400) X10*3/uL MPV (9.4-12.3) fL Immature Gran % (Auto) (0.0-0.4) % Neut % (Auto) (45-73) % Lymph % (Auto) (20-40) % [place] % (Auto) (2-11) % Eos % (Auto) (0-4) % Baso % (Auto) (0-2) % Lymph # (Auto) (1.2-4.9) X10*3/uL [place] # (Auto) (0.1-1.2) X10*3/uL Eos # (Auto) (0.0-0.4) X10*3/uL Baso # (Auto) (0.0-0.2) X10*3/uL Abs Immat Gran (auto) (0.00-0.03) X10*3/uL Absolute Neuts (auto) (2.0-8.3) X10*3/uL Absolute Nucleated RBC (0.0-0.012) X10*3/uL Nucleated RBC % (auto) (0.0-0.2) /100WBC PT 13.5 H (10.8-13.0) SEC INR 1.1 (0.9-1.1) Sodium (135-145) mmol/L Potassium (3.3-5.1) mmol/L Chloride (96-108) mmol/L Carbon Dioxide (22-29) mmol/L Anion Gap (12-20) BUN (9-16) mg/dL Creatinine (0.5-1.4) mg/dL Estim Creat Clear Calc Estimated GFR POC Glucose (60-115) mg/dL Random Glucose (60-115) mg/dL Calcium (8.4-10.2) mg/dL Magnesium (1.6-2.6) mg/dL Total Bilirubin (0.0-1.0) mg/dL Direct Bilirubin (0.0-0.5) mg/dL AST (5-31) U/L ALT (0-31) U/L Alkaline Phosphatase (39-117) U/L Troponin I High Sens < 3.5 (<3.5-17.0) ng/L Total Protein (6.5-8.0) g/dL Albumin (3.5-5.0) g/dL Lipase (8-78) U/L Urine Color Urine Appearance Urine pH (5.0-8.0) Ur Specific Jackson (1.005-1.025) Urine Protein (NEG-TRACE) MG/DL Urine Glucose (UA) (NEG) MG/DL Urine Ketones (NEG) MG/DL Urine Blood (NEG) Urine Nitrite (NEG) Ur Leukocyte Esterase (NEG) Urine RBC (0) /HPF Urine WBC (0-4) /HPF Ur Squamous Epith Cells /LPF Amorphous Sediment /LPF Urine Bacteria /LPF Urine Yeast /HPF Urine Test (NEGATIVE) Acetone, Qual (Negative) Chlam trachomat DNA PCR NOT DETECTED (Not Detect.) Coronavirus (PCR) (Negative) Influenza Type A (PCR) (Negative) Influenza Type B (PCR) (Negative) N.gonorrhoeae DNA (PCR) NOT DETECTED (Not Detect.) RSV RNA Qual (PCR) (Negative) 07/03/20 07/03/20 07/03/20 Range/Units 13:09 13:09 14:52 WBC (4.8-10.8) X10*3/uL RBC (4.20-5.50) X10*6/uL Hgb (12.0-16.0) g/dl Hct (37-47) % MCV (80-98) fL MCH (27.0-33.0) pg MCHC (31.0-35.0) g/dl RDW (11.0-16.0) % Plt Count (160-400) X10*3/uL MPV (9.4-12.3) fL Immature Gran % (Auto) (0.0-0.4) % Neut % (Auto) (45-73) % Lymph % (Auto) (20-40) % [place] % (Auto) (2-11) % Eos % (Auto) (0-4) % Baso % (Auto) (0-2) % Lymph # (Auto) (1.2-4.9) X10*3/uL [place] # (Auto) (0.1-1.2) X10*3/uL Eos # (Auto) (0.0-0.4) X10*3/uL Baso # (Auto) (0.0-0.2) X10*3/uL Abs Immat Gran (auto) (0.00-0.03) X10*3/uL Absolute Neuts (auto) (2.0-8.3) X10*3/uL Absolute Nucleated RBC (0.0-0.012) X10*3/uL Nucleated RBC % (auto) (0.0-0.2) /100WBC PT (10.8-13.0) SEC INR (0.9-1.1) Sodium 134 L (135-145) mmol/L Potassium 4.4 (3.3-5.1) mmol/L Chloride 100 (96-108) mmol/L Carbon Dioxide 25 (22-29) mmol/L Anion Gap 13 (12-20) BUN 11 (9-16) mg/dL Creatinine 1.20 (0.5-1.4) mg/dL Estim Creat Clear Calc 78.4 Estimated GFR 51 POC Glucose (60-115) mg/dL Random Glucose 484 H* (60-115) mg/dL Calcium 9.6 D (8.4-10.2) mg/dL Magnesium 2.0 (1.6-2.6) mg/dL Total Bilirubin 0.5 (0.0-1.0) mg/dL Direct Bilirubin 0.2 (0.0-0.5) mg/dL AST 14 (5-31) U/L ALT 16 (0-31) U/L Alkaline Phosphatase 86 D (39-117) U/L Troponin I High Sens (<3.5-17.0) ng/L Total Protein 7.5 (6.5-8.0) g/dL Albumin 4.2 (3.5-5.0) g/dL Lipase (8-78) U/L Urine Color YELLOW Urine Appearance CLOUDY Urine pH 6.0 (5.0-8.0) Ur Specific Jackson 1.020 (1.005-1.025) Urine Protein TRACE (NEG-TRACE) MG/DL Urine Glucose (UA) >=1000 H (NEG) MG/DL Urine Ketones NEG (NEG) MG/DL Urine Blood TRACE (NEG) Urine Nitrite NEG (NEG) Ur Leukocyte Esterase NEG (NEG) Urine RBC 0-2 (0) /HPF Urine WBC 1-4 (0-4) /HPF Ur Squamous Epith Cells 1+ /LPF Amorphous Sediment 1+ /LPF Urine Bacteria TRACE /LPF Urine Yeast TRACE /HPF Urine Test NEGATIVE (NEGATIVE) Acetone, Qual Negative (Negative) Chlam trachomat DNA PCR (Not Detect.) Coronavirus (PCR) (Negative) Influenza Type A (PCR) (Negative) Influenza Type B (PCR) (Negative) N.gonorrhoeae DNA (PCR) (Not Detect.) RSV RNA Qual (PCR) (Negative) 07/03/20 07/03/20 07/03/20 Range/Units 14:52 14:52 14:52 WBC (4.8-10.8) X10*3/uL RBC (4.20-5.50) X10*6/uL Hgb (12.0-16.0) g/dl Hct (37-47) % MCV (80-98) fL MCH (27.0-33.0) pg MCHC (31.0-35.0) g/dl RDW (11.0-16.0) % Plt Count (160-400) X10*3/uL MPV (9.4-12.3) fL Immature Gran % (Auto) (0.0-0.4) % Neut % (Auto) (45-73) % Lymph % (Auto) (20-40) % [place] % (Auto) (2-11) % Eos % (Auto) (0-4) % Baso % (Auto) (0-2) % Lymph # (Auto) (1.2-4.9) X10*3/uL [place] # (Auto) (0.1-1.2) X10*3/uL Eos # (Auto) (0.0-0.4) X10*3/uL Baso # (Auto) (0.0-0.2) X10*3/uL Abs Immat Gran (auto) (0.00-0.03) X10*3/uL Absolute Neuts (auto) (2.0-8.3) X10*3/uL Absolute Nucleated RBC (0.0-0.012) X10*3/uL Nucleated RBC % (auto) (0.0-0.2) /100WBC PT (10.8-13.0) SEC INR (0.9-1.1) Sodium Cancelled (135-145) mmol/L Potassium Cancelled (3.3-5.1) mmol/L Chloride Cancelled (96-108) mmol/L Carbon Dioxide Cancelled (22-29) mmol/L Anion Gap Cancelled (12-20) BUN Cancelled (9-16) mg/dL Creatinine Cancelled (0.5-1.4) mg/dL Estim Creat Clear Calc Cancelled Estimated GFR Cancelled POC Glucose (60-115) mg/dL Random Glucose Cancelled (60-115) mg/dL Calcium Cancelled (8.4-10.2) mg/dL Magnesium (1.6-2.6) mg/dL Total Bilirubin (0.0-1.0) mg/dL Direct Bilirubin (0.0-0.5) mg/dL AST (5-31) U/L ALT (0-31) U/L Alkaline Phosphatase (39-117) U/L Troponin I High Sens (<3.5-17.0) ng/L Total Protein (6.5-8.0) g/dL Albumin (3.5-5.0) g/dL Lipase 17 (8-78) U/L Urine Color Urine Appearance Urine pH (5.0-8.0) Ur Specific Jackson (1.005-1.025) Urine Protein (NEG-TRACE) MG/DL Urine Glucose (UA) (NEG) MG/DL Urine Ketones (NEG) MG/DL Urine Blood (NEG) Urine Nitrite (NEG) Ur Leukocyte Esterase (NEG) Urine RBC (0) /HPF Urine WBC (0-4) /HPF Ur Squamous Epith Cells /LPF Amorphous Sediment /LPF Urine Bacteria /LPF Urine Yeast /HPF Urine Test (NEGATIVE) Acetone, Qual (Negative) Chlam trachomat DNA PCR (Not Detect.) Coronavirus (PCR) NEGATIVE (Negative) Influenza Type A (PCR) NEGATIVE (Negative) Influenza Type B (PCR) NEGATIVE (Negative) N.gonorrhoeae DNA (PCR) (Not Detect.) RSV RNA Qual (PCR) NEGATIVE (Negative) Imaging Data CT scan of abdomen and pelvis IV contrast: Attestation: I personally reviewed and interpreted this imaging study as follows: Radiologist's impression: FINDINGS: LUNG BASES: A 3 mm nodule is seen along the major fissure in the right lower lobe (4:1). The lung bases otherwise appear unremarkable LIVER, GALLBLADDER, AND BILIARY TREE: The liver is enlarged measuring 23 cm in cephalocaudad dimension and demonstrates decreased attenuation suggesting hepatic steatosis. No focal liver lesion or biliary ductal dilatation is seen. The gallbladder is unremarkable with no evidence of radiopaque gallstones, gallbladder wall thickening, or obvious pericholecystic inflammatory changes. PANCREAS: Unremarkable. SPLEEN: Small accessory spleens are noted in the left upper quadrant the largest measuring 2.5 cm. ADRENAL GLANDS: Unremarkable. KIDNEYS AND URETERS: The right kidney appears normal. The left kidney demonstrates multiple areas of cortical scarring in the mid and lower pole. No renal calculi are seen. No renal masses are seen. No hydronephrosis is present. BLADDER: The bladder appears abnormal with high density seen near the dome of the bladder suggesting the possibility of a mass however this may be artifactual. Bladder ultrasound is recommended for further evaluation. GASTROINTESTINAL TRACT: The small and large bowel are unremarkable. The appendix is unremarkable. ABDOMINAL WALL: No significant hernia is appreciated. LYMPH NODES: No retroperitoneal lymphadenopathy seen. Small bilateral inguinal lymph nodes are present. VASCULAR: Unremarkable. PELVIC VISCERA: An anteverted uterus is present. An abnormal adnexal mass is not seen. No free intraperitoneal fluid is present OSSEOUS STRUCTURES: Degenerative changes are present at L5-S1. No bony destructive lesions seen. 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 CT/CT abdomen pelvis w con IMPRESSION: A cause for the patient's diffuse acute abdominal pain has not been found. Incidental note made of: 1. Enlarged fatty liver 2. 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 3. Left renal scarring. This could be from trauma which may have been the culprit causing a splenectomy. Please correlate with history. 4. Degenerative changes L5-S1 5. Question of a mass at the dome of the bladder. Bladder ultrasound is recommended for further evaluation. ECG Data Attestation: I personally reviewed and interpreted this ECG as follows: ECG interpretation date: 07/03/20 ECG interpretation time: 13:45 Interpretation: Normal sinus rhythm in circular rate of 90 with a normal AK interval normal QRS duration normal QT/QTC interval. No acute ischemic changes noted. Similar compared to prior EKG 05/04/2020 Critical Care Time Critical Care Time Critical Care Time: Yes Total Critical Care Time: 60 Attestation: I personally attest to this time spent taking care of the patient Discharge Plan Discharge Clinical Impression: Acute hyperglycemia, Rebecca vaginitis Instructions: Yeast Infection (ED), Diabetic Hyperglycemia (ED) Additional Instructions: YOU HAVE PENDING LAB RESULTS IF ANY ARE POSITIVE YOU WILL BE CONTACTED. Prescriptions: New fluconazole [Diflucan] 150 mg tablet 150 mg PO Q3D Qty: 2 RF: 0 Lantus Solostar U-100 Insulin 100 unit/mL (3 mL) insulin pen 50 unit subcut QPM Qty: 15 RF: 2 Humalog Mix 50-50 KwikPen 100 unit/mL (50-50) insulin pen 5 unit subcut .achs Qty: 15 RF: 2 No Action lactulose 10 gram packet 20 g PO DAILY 3 Days Qty: 1 RF: 0 ondansetron HCl [Zofran] 4 mg tablet 4 mg PO Q8H PRN (Reason: nausea) Qty: 8 RF: 0 Referrals: [facility] [Primary Care Provider] - 2 days Print Language: Mauritanian
[2020-07-03 15:21] LABS: Acetone, serum QL Negative (Negative)
[2020-07-03 15:22] LABS: CT PCR NOT DETECTED (Not Detect.); NG PCR NOT DETECTED (Not Detect.)
[2020-07-03 15:22] LABS: Lipase 17 U/L (8-78)
[2020-07-03 15:23] LABS: Alanine Aminotransferase 16 U/L (0-31); Albumin Level 4.2 g/dL (3.5-5.0); Alkaline Phosphatase 86 U/L (39-117); Anion Gap 13 (12-20); Aspartate Amino Transferase 14 U/L (5-31); Bilirubin Direct 0.2 mg/dL (0.0-0.5); Bilirubin Total 0.5 mg/dL (0.0-1.0); Blood Urea Nitrogen 11 mg/dL (9-16); Calcium 9.6 mg/dL (8.4-10.2); Carbon Dioxide 25 mmol/L (22-29); Chloride 100 mmol/L (96-108); Creatinine Clr Calc Pharmacy 78.4; Estimated Glomerular Filt Rate 51; Glucose Random 484 mg/dL (60-115); Potassium 4.4 mmol/L (3.3-5.1); Sodium 134 mmol/L (135-145); Total Protein 7.5 g/dL (6.5-8.0)
[2020-07-03] MEDS: Insulin Regular, Human 100 UNIT/ML 3 ML VIAL 9 UNIT IVPUSH (15:33)
[2020-07-03 15:35] LABS: Influenza A PCR NEGATIVE (Negative); Influenza B PCR NEGATIVE (Negative); Resp Syncy Virus RNA Qual PCR NEGATIVE (Negative); SARS COV2 PCR INHOUSE NEGATIVE (Negative)
[2020-07-03 16:49] LABS: UPreg QC Valid YES; Urine Pregnancy NEGATIVE (NEGATIVE)
[2020-07-03] MEDS: iohexoL 350 MG/ML 100 ML INFUS..BTL IV (16:52)
[2020-07-04 09:11] LABS: BV Int Neg Control Negative (Negative); BV Int Pos Control Positive (Positive)
== END 2020-07-03 18:44 | disposition home or self-care (01) ==
PROVIDERS: Physician Assistant Medical; Emergency Provider Emergency Medicine
DX: E11.65 Type 2 diabetes mellitus with hyperglycemia (principal); B37.3 Candidiasis of vulva and vagina; R10.9 Unspecified abdominal pain; R00.0 Tachycardia, unspecified; D72.829 Elevated white blood cell count, unspecified; Z20.822 Contact with and (suspected) exposure to COVID-19; J45.909 Unspecified asthma, uncomplicated; I10 Essential (primary) hypertension; F17.200 Nicotine dependence, unspecified, uncomplicated; Z79.4 Long term (current) use of insulin
CPT/HCPCS: 0241U; 36415; 74177; 76857; 80048; 80076; 81001; 81025; 82009; 82947; 83690; 83735; 84484; 85025; 85610; 87480; 87491; 87510; 87591; 87660; 93005; 96361; 96374; 99284; 99291; Q9967

== ENCOUNTER 2020-10-16 12:46 | Outpatient (REF) | payer MEDICAID, SELFPAY ==
[2020-10-16 16:06] LABS: Estimated Average Glucose 206 mg/dL; Hemoglobin A1c % 8.8 %
[2020-10-16 16:15] LABS: Alanine Aminotransferase 12 U/L (0-31); Albumin Level 4.2 g/dL (3.5-5.0); Alkaline Phosphatase 77 U/L (39-117); Anion Gap 14 (12-20); Aspartate Amino Transferase 14 U/L (5-31); Bilirubin Total 0.4 mg/dL (0.0-1.0); Blood Urea Nitrogen 11 mg/dL (9-16); Calcium 9.3 mg/dL (8.4-10.2); Carbon Dioxide 24 mmol/L (22-29); Chloride 107 mmol/L (96-108); Cholesterol 210 mg/dL; Estimated Glomerular Filt Rate 50; Glucose Fasting 131 mg/dL (60-99); HDL Cholesterol 37 mg/dL; LDL Cholesterol Calculated 137 mg/dl; Potassium 4.1 mmol/L (3.3-5.1); Sodium 141 mmol/L (135-145); Total Protein 7.8 g/dL (6.5-8.0); Triglycerides 183 mg/dL
[2020-10-16 16:35] LABS: Thyroid Stimulating Hormone 0.91 uIU/mL (0.32-4.0); Vitamin D 25-OH Total 22.9 ng/mL (>30)
[2020-10-16 16:45] LABS: Microalbum/Creatinine Ratio Ur 23.8 ug/mg cr
[2020-10-17 22:37] LABS: LDL Cholesterol Direct 147 mg/dL (<100)
== END 2020-10-16 12:47 | disposition home or self-care (01) ==
LOC: HO.LAB 12:46
PROVIDERS: PCP Internal Medicine; Visit Provider Nurse Practitioner Gerontology
DX: E11.65 Type 2 diabetes mellitus with hyperglycemia (principal); E11.22 Type 2 diabetes mellitus with diabetic chronic kidney disease; E66.09 Other obesity due to excess calories; I12.9 Hypertensive chronic kidney disease with stage 1 through stage 4 chronic kidney disease, or unspecified chronic kidney disease; N18.31 Chronic kidney disease, stage 3a; J45.909 Unspecified asthma, uncomplicated; R35.0 Frequency of micturition; R35.1 Nocturia; E78.5 Hyperlipidemia, unspecified; F17.200 Nicotine dependence, unspecified, uncomplicated; Z68.41 Body mass index [BMI] 40.0-44.9, adult; Z79.899 Other long term (current) drug therapy; Z79.4 Long term (current) use of insulin
CPT/HCPCS: 36415; 80053; 80061; 82043; 82306; 82947; 83036; 83721; 84439; 84443; 99212

== ENCOUNTER → 2020-11-25 07:50 | Outpatient (BNVA) | payer MEDICAID, SELFPAY | PROVIDERS: PCP Internal Medicine; Visit Provider Nurse Practitioner Gerontology ==

== ENCOUNTER → 2021-05-26 07:40 | Outpatient (BNVA) | payer MEDICAID, SELFPAY | PROVIDERS: PCP Internal Medicine; Visit Provider Nurse Practitioner Gerontology | DX: E11.65 Type 2 diabetes mellitus with hyperglycemia (principal); E11.22 Type 2 diabetes mellitus with diabetic chronic kidney disease; I12.9 Hypertensive chronic kidney disease with stage 1 through stage 4 chronic kidney disease, or unspecified chronic kidney disease; N18.31 Chronic kidney disease, stage 3a; E78.5 Hyperlipidemia, unspecified; E66.01 Morbid (severe) obesity due to excess calories; Z68.41 Body mass index [BMI] 40.0-44.9, adult; E55.9 Vitamin D deficiency, unspecified; Z79.4 Long term (current) use of insulin | CPT/HCPCS: 82947; 99212 ==

== ENCOUNTER 2021-08-04 18:36 | Emergency (ER) | payer MEDICAID, SELFPAY ==
[2021-08-04 18:40] VITALS: BP 150/94; PULSE 100; RESP 18; TEMP 37; O2SAT 99; BMI 38.7
[2021-08-04 19:17] LABS: Hemoglobin 11.5 g/dl (12.0-16.0); Imm Gran Abs Auto 0.05 X10*3/uL (0.00-0.03); Imm Gran Pct Auto 0.3 % (0.0-0.4); MANUAL DIFF FLAG SCAN; Mean Corpuscular Volume 79.8 fL (80.0-98.0); Red Cell Distribution Width 16.9 % (11.0-16.0); SCAN SMEAR FLAG 1
[2021-08-04 19:19] LABS: Basophils Absolute Auto 0.1 X10*3/uL (0.0-0.2); Basophils Percent Auto 0.5 % (0-2); Eosinophils Absolute Auto 0.1 X10*3/uL (0.0-0.4); Eosinophils Percent Auto 0.3 % (0-4); Hematocrit 36.3 % (37.0-47.0); Lymphocytes Absolute Auto 4.7 X10*3/uL (1.2-4.9); Lymphocytes Percent Auto 31.7 % (20-40); Mean Corpuscular HGB Conc 31.7 g/dl (31.0-35.0); Mean Corpuscular Hemoglobin 25.3 pg (27.0-33.0); Monocytes Absolute Auto 0.9 X10*3/uL (0.1-1.2); Monocytes Percent Auto 5.8 % (2-11); Neutrophils Absolute Auto 9.1 x10*3/uL (2.0-8.3); Neutrophils Percent Auto 61.4 % (45-73); PLT CLUMP 1; Red Blood Count 4.55 X10*6/uL (4.20-5.50)
[2021-08-04 19:22] LABS: PLT ABN DIST 1; White Blood Count 17.8 X10*3/uL (4.8-10.8)
[2021-08-04 19:28] LABS: Appearance Urine CLOUDY; Color Urine DK YELLOW; Glucose Urine UA 250 MG/DL (NEG); Leukocyte Esterase Urine NEG (NEG); Nitrite Urine NEG (NEG); Specific Gravity - Urine >= 1.030 (1.005-1.025); UACC Culture Trigger NO; Urine Blood TRACE (NEG); Urine Ketones 5 MG/DL (NEG); Urine Protein 2+ MG/DL (NEG-TRACE)
[2021-08-04 19:32] LABS: Ethanol < 10 mg/dL
[2021-08-04 19:35] LABS: Alanine Aminotransferase 13 U/L (0-31); Alkaline Phosphatase 92 U/L (39-117); Anion Gap 17 (12-20); Aspartate Amino Transferase 13 U/L (5-31); Bilirubin Total 0.3 mg/dL (0.0-1.0); Blood Urea Nitrogen 10 mg/dL (9-16); COVID-19 Test Negative (Negative); Calcium 9.7 mg/dL (8.4-10.2); Carbon Dioxide 20 mmol/L (22-29); Chloride 104 mmol/L (96-108); Creatinine Clr Calc Pharmacy 92.7; Estimated Glomerular Filt Rate 52; Glucose Random 295 mg/dL (60-115); Potassium 3.6 mmol/L (3.3-5.1); Sodium 137 mmol/L (135-145); Total Protein 7.7 g/dL (6.5-8.0)
[2021-08-04 19:38] LABS: Amphetamine Screen Urine Not Detected (Not Detect); Barbiturates, Urine Not Detected (Not Detect); Benzodiazepines Screen Urine Not Detected (Not Detect); Cannabinoid Screen Urine Not Detected (Not Detect); Cocaine Screen Urine POSITIVE (Not Detect); Fentanyl, urine Not Detected (Not Detect); Opiate Screen Urine Not Detected (Not Detect); Phencyclidine Screen Urine Not Detected (Not Detect)
[2021-08-04 19:45] LABS: SLIDE REVIEW VERIFIED
[2021-08-04 19:56] LABS: Bacteria Urine 2+ /LPF; RBC Urine 0-2 /HPF (0); Squamous Epithelial Cell Urine 4+ /LPF; WBC Urine 0-2 /HPF (0-4)
[2021-08-04 19:57] LABS: Mucus Urine 2+ /LPF
--- NOTE | 2021-08-04 21:42 | ED.MEDCLEAR ---
HPI - Medical Clearance General Chief complaint: Medical Clearance Stated complaint: medical clearance Time Seen by Provider: 08/04/21 21:37 Source: patient Mode of arrival: ambulatory Limitations: no limitations History of Present Illness HPI Narrative: Patient comes to the emergency room complaining of lab work that she needs in order to return to her shelter. Patient left without authorization, in order to get back she needs medical clearance . Patient states that she is asymptomatic. Voices no complaints. Related Information Home Medications Medication Instructions Recorded Confirmed ergocalciferol (vitamin D2) 1,250 1,250 mcg PO QWEEK 10/16/20 05/26/21 mcg (50,000 unit) capsule gabapentin 100 mg capsule 100 mg PO BID 10/16/20 05/26/21 melatonin 10 mg capsule 10 mg PO BEDTIME PRN 10/16/20 05/26/21 omeprazole 40 mg capsule,delayed 40 mg PO DAILY 10/16/20 05/26/21 release quetiapine 200 mg tablet (Seroquel) 200 mg PO BEDTIME 10/16/20 05/26/21 risperidone 2 mg tablet 2 mg PO DAILY 10/16/20 05/26/21 sertraline 100 mg tablet (Zoloft) 100 mg PO DAILY 10/16/20 05/26/21 topiramate 25 mg sprinkle capsule 25 mg PO BID 10/16/20 05/26/21 (Topamax) Previous Rx's Medication Instructions Recorded ondansetron HCl 4 mg tablet 4 mg PO Q8H PRN #8 tab 05/04/20 (Zofran) dulaglutide 0.75 mg/0.5 mL 0.75 mg (0.5 mL) SUBCUT QWEEK #2 ml 01/20/21 subcutaneous [facility] atorvastatin 40 mg tablet 40 mg PO BEDTIME #30 tab 05/26/21 blood sugar diagnostic (FreeStyle #150 ea 05/26/21 Lite Strips) blood-glucose meter (FreeStyle #1 ea 05/26/21 Lite Meter) insulin degludec 200 unit/mL (3 44 unit (0.22 mL) SUBCUT BEDTIME 05/26/21 mL) subcutaneous pen (Tresiba 30 Days #9 ml FlexTouch U-200 insulin) insulin lispro 100 unit/mL See Rx Instructions SUBCUT TID #15 05/26/21 subcutaneous pen (Humalog KwikPen ml (U-100) Insulin) lancets 28 gauge (FreeStyle #200 ea 05/26/21 Lancets) Allergies Allergy/AdvReac Type Severity Reaction Status Date / Time ibuprofen [From Motrin] AdvReac Dry Mucus Verified 05/26/21 07:49 Membranes morphine AdvReac Dry Mucus Verified 05/26/21 07:49 Membranes Review of Systems Review of Systems: Constitutional : No Weight loss, No Fever, No Chills, No Night Sweats, No Fatigue, No Malaise ENT/Mouth : No Hearing loss, No Ear Pain, No Nasal Congestion, No Sinus Pain, No Hoarseness, No sore throat, No Rhinorrhea, No Swallowing Difficulty Eyes: No Eye Pain, No Swelling, No Redness, No Foreign Body, No Discharge, No Vision Changes Cardiovascular : No Chest Pain, No SOB, No Dyspnea on Exertion, No Orthopnea, No Edema, No Palpitations Respiratory : No Cough, No Sputum, No Wheezing, No Smoke Exposure, No Dyspnea Gastrointestinal : No Nausea, No Vomiting, No Diarrhea, No Constipation, No abdominal Pain, No Hematochezia, No Melena Genitourinary : no irregular bleeding, No Dysuria, No Urinary Frequency, No Hematuria, No Urinary Incontinence, No Urgency, No Flank Pain, No Urinary Flow Changes, No Hesitancy Musculoskeletal : No joint pain, No Myalgias, No Joint Swelling Skin : No Skin Lesions, No rash Neuro : No Weakness, No Numbness, No Paresthesias, No Loss of Consciousness, No Dizziness, No Headache Psych : No Anxiety/Panic, No Depression, No SI/HI/AH/VH, No Social Issues, Heme/Lymph: No Bruising, No Bleeding,No Lymphadenopathy Endocrine : No Polyuria, No Polydipsia, No Temperature Intolerance [facility] Past Medical History Medical History Asthma Diabetes Diabetes type 2, uncontrolled Hyperlipidemia LDL goal <100 Hypertension Obesity due to excess calories Substance abuse Type 2 diabetes mellitus with chronic kidney disease Vitamin D deficiency Surgical History Hx of section Hx of splenectomy Family History Family History Mother Diabetes Maternal Grandmother Diabetes Maternal Aunt Diabetes Hypertension Father No problems noted. Social History Social History (Updated 05/26/21 @ 07:52 by Kaitlyn Bro LPN) Household Members: None Alcohol intake: never Patient Tobacco Use Status: Current everyday Tobacco user Cigarettes Per Day: 5 Advance Directives: No Advance Directives Information Provided: No Patient : No Physical Exam Vital Signs: Vital Signs: Last Vital Signs Temp 98.6 F 08/04/21 18:40 Pulse 100 08/04/21 18:40 Resp 18 08/04/21 18:40 BP 150/94 H 08/04/21 18:40 Pulse Ox 99 08/04/21 18:40 BMI result Body Mass Index 38.7 Const: Other: Appearance: Alert. Oriented X3. No acute distress. Eyes: Pupils equal, round and reactive to light. ENT: Pharynx normal. Neck: Normal inspection. Neck supple. No lymph nodes noted. No crepitus CVS: Normal heart rate and rhythm. Pulses normal. Normal S1 and S2 Respiratory: No respiratory distress. Breath sounds normal. No Wheezing. No rales Abdomen: Soft and nontender. No rigidity. No distention. Skin: Skin warm and dry. Normal skin color. Normal skin turgor. Extremities: No lower extremity edema. No Lacerations. No Rash Neuro: Oriented X 3. No motor deficit. No sensory deficit. Moving all extremities. No slurred speech. CN 2 through 12 grossly intact Psych: calm, cooperative, normal affect Course Course Course Narrative: I discussed the labs with the patient. Patient's leukocytosis is slightly more elevated than usual. Patient does not have any URI or UTI symptoms. Electrolytes are unremarkable, no UTI, patient tested positive for cocaine, patient aware, negative for alcohol. Patient was provided with a copy of her labs MDM - Medical Clearance Lab Data Result diagrams: 08/04/21 19:00 08/04/21 19:00 Labs: Lab Results 08/04/21 08/04/21 08/04/21 Range/Units 19:00 19:00 19:00 WBC 17.8 H (4.8-10.8) X10*3/uL RBC 4.55 (4.20-5.50) X10*6/uL Hgb 11.5 L (12.0-16.0) g/dl Hct 36.3 L (37.0-47.0) % MCV 79.8 L (80.0-98.0) fL MCH 25.3 L (27.0-33.0) pg MCHC 31.7 (31.0-35.0) g/dl RDW 16.9 H (11.0-16.0) % Plt Count TNP MPV TNP Immature Gran % (Auto) 0.3 (0.0-0.4) % Neut % (Auto) 61.4 (45-73) % Lymph % (Auto) 31.7 (20-40) % [place] % (Auto) 5.8 (2-11) % Eos % (Auto) 0.3 (0-4) % Baso % (Auto) 0.5 (0-2) % Lymph # (Auto) 4.7 (1.2-4.9) X10*3/uL [place] # (Auto) 0.9 (0.1-1.2) X10*3/uL Eos # (Auto) 0.1 (0.0-0.4) X10*3/uL Baso # (Auto) 0.1 (0.0-0.2) X10*3/uL Abs Immat Gran (auto) 0.05 H (0.00-0.03) X10*3/uL Absolute Neuts (auto) 9.1 H (2.0-8.3) x10*3/uL Absolute Nucleated RBC 0.000 (0.0-0.012) X10*3/uL Nucleated RBC % (auto) 0.0 (0.0-0.2) /100WBC Smear Tech's Comments VERIFIED Sodium 137 (135-145) mmol/L Potassium 3.6 (3.3-5.1) mmol/L Chloride 104 (96-108) mmol/L Carbon Dioxide 20 L (22-29) mmol/L Anion Gap 17 (12-20) BUN 10 (9-16) mg/dL Creatinine 1.17 (0.5-1.4) mg/dL Estim Creat Clear Calc 92.7 Estimated GFR 52 Random Glucose 295 H (60-115) mg/dL Calcium 9.7 (8.4-10.2) mg/dL Total Bilirubin 0.3 (0.0-1.0) mg/dL AST 13 (5-31) U/L ALT 13 (0-31) U/L Alkaline Phosphatase 92 (39-117) U/L Total Protein 7.7 (6.5-8.0) g/dL Albumin 4.0 (3.5-5.0) g/dL Urine Color Urine Appearance Urine pH (5.0-8.0) Ur Specific [place] (1.005-1.025) Urine Protein (NEG-TRACE) MG/DL Urine Glucose (UA) (NEG) MG/DL Urine Ketones (NEG) MG/DL Urine Blood (NEG) Urine Nitrite (NEG) Ur Leukocyte Esterase (NEG) Urine RBC (0) /HPF Urine WBC (0-4) /HPF Ur Squamous Epith Cells /LPF Urine Bacteria /LPF Urine Mucus /LPF Urine Opiates Screen (Not Detect) Urine Fentanyl Screen (Not Detect) Ur Barbiturates Screen (Not Detect) Ur Phencyclidine Scrn (Not Detect) Ur Amphetamines Screen (Not Detect) U Benzodiazepines Scrn (Not Detect) Urine Cocaine Screen (Not Detect) U Marijuana (THC) Screen (Not Detect) Ethyl Alcohol mg/dL COVID-19 ([facility]) Negative (Negative) COVID-19 Clin Com See Note 08/04/21 08/04/21 08/04/21 Range/Units 19:00 19:00 19:00 WBC (4.8-10.8) X10*3/uL RBC (4.20-5.50) X10*6/uL Hgb (12.0-16.0) g/dl Hct (37.0-47.0) % MCV (80.0-98.0) fL MCH (27.0-33.0) pg MCHC (31.0-35.0) g/dl RDW (11.0-16.0) % Plt Count MPV Immature Gran % (Auto) (0.0-0.4) % Neut % (Auto) (45-73) % Lymph % (Auto) (20-40) % [place] % (Auto) (2-11) % Eos % (Auto) (0-4) % Baso % (Auto) (0-2) % Lymph # (Auto) (1.2-4.9) X10*3/uL [place] # (Auto) (0.1-1.2) X10*3/uL Eos # (Auto) (0.0-0.4) X10*3/uL Baso # (Auto) (0.0-0.2) X10*3/uL Abs Immat Gran (auto) (0.00-0.03) X10*3/uL Absolute Neuts (auto) (2.0-8.3) x10*3/uL Absolute Nucleated RBC (0.0-0.012) X10*3/uL Nucleated RBC % (auto) (0.0-0.2) /100WBC Smear Tech's Comments Sodium (135-145) mmol/L Potassium (3.3-5.1) mmol/L Chloride (96-108) mmol/L Carbon Dioxide (22-29) mmol/L Anion Gap (12-20) BUN (9-16) mg/dL Creatinine (0.5-1.4) mg/dL Estim Creat Clear Calc Estimated GFR Random Glucose (60-115) mg/dL Calcium (8.4-10.2) mg/dL Total Bilirubin (0.0-1.0) mg/dL AST (5-31) U/L ALT (0-31) U/L Alkaline Phosphatase (39-117) U/L Total Protein (6.5-8.0) g/dL Albumin (3.5-5.0) g/dL Urine Color DK YELLOW Urine Appearance CLOUDY Urine pH 6.0 (5.0-8.0) Ur Specific [place] >= 1.030 H (1.005-1.025) Urine Protein 2+ H (NEG-TRACE) MG/DL Urine Glucose (UA) 250 H (NEG) MG/DL Urine Ketones 5 (NEG) MG/DL Urine Blood TRACE (NEG) Urine Nitrite NEG (NEG) Ur Leukocyte Esterase NEG (NEG) Urine RBC 0-2 (0) /HPF Urine WBC 0-2 (0-4) /HPF Ur Squamous Epith Cells 4+ /LPF Urine Bacteria 2+ /LPF Urine Mucus 2+ /LPF Urine Opiates Screen Not Detected (Not Detect) Urine Fentanyl Screen Not Detected (Not Detect) Ur Barbiturates Screen Not Detected (Not Detect) Ur Phencyclidine Scrn Not Detected (Not Detect) Ur Amphetamines Screen Not Detected (Not Detect) U Benzodiazepines Scrn Not Detected (Not Detect) Urine Cocaine Screen POSITIVE H (Not Detect) U Marijuana (THC) Screen Not Detected (Not Detect) Ethyl Alcohol < 10 mg/dL COVID-19 ([facility]) (Negative) COVID-19 Clin Com Discharge Plan Discharge Clinical Impression: Normal physical exam Patient Disposition: Home, Self-Care Additional Instructions: You came to the emergency room seeking medical clearance to return to your shelter after an unauthorized leave. You will be provided with a copy of your labs. Your white blood cell count is chronically elevated, electrolytes are unremarkable, your glucose level is elevated, 295. You do not have a urinary tract infection, who tested positive for cocaine, who tested negative for COVID-19 Prescriptions: No Action Trulicity 0.75 mg/0.5 mL pen injector 0.75 mg subcut QWEEK Qty: 2 6RF ondansetron HCl [Zofran] 4 mg tablet 4 mg PO Q8H PRN (Reason: nausea) Qty: 8 0RF quetiapine [Seroquel] 200 mg tablet 200 mg PO BEDTIME 0RF gabapentin 100 mg capsule 100 mg PO BID 0RF ergocalciferol (vitamin D2) 1,250 mcg (50,000 unit) capsule 1,250 mcg PO QWEEK 0RF sertraline [Zoloft] 100 mg tablet 100 mg PO DAILY 0RF omeprazole 40 mg capsule,delayed release(DR/EC) 40 mg PO DAILY 0RF melatonin 10 mg capsule 10 mg PO BEDTIME PRN0RF topiramate [Topamax] 25 mg capsule, sprinkle 25 mg PO BID 0RF risperidone 2 mg tablet 2 mg PO DAILY 0RF Tresiba FlexTouch U-200 200 unit/mL (3 mL) insulin pen 44 unit subcut BEDTIME 30 Days Qty: 9 6RF atorvastatin 40 mg tablet 40 mg PO BEDTIME Qty: 30 11RF insulin lispro [Humalog KwikPen Insulin] 100 unit/mL insulin pen See Rx Instructions subcut TID Qty: 15 4RF Rx Instructions: 6u breakfast, 8 u lunch & dinner, + 2 unit if bg over 200 subcut 3 times a day; (DME) blood-glucose meter [FreeStyle Lite Meter] Kit See Rx Instructions .ROUTE .MEDSUPPLY Qty: 1 0RF Rx Instructions: As directed (DME) FreeStyle Lite Strips Strip See Rx Instructions .ROUTE .MEDSUPPLY Qty: 150 11RF Rx Instructions: As directed four times a day (DME) lancets [FreeStyle Lancets] 28 gauge misc See Rx Instructions .ROUTE .MEDSUPPLY Qty: 200 11RF Rx Instructions: 4 times a day
== END 2021-08-04 22:18 | disposition home or self-care (01) ==
PROVIDERS: Emergency Provider Emergency Medicine
DX: Z02.89 Encounter for other administrative examinations (principal); Z79.899 Other long term (current) drug therapy; Z20.822 Contact with and (suspected) exposure to COVID-19
CPT/HCPCS: 36415; 80053; 80307; 81001; 82077; 85025; 87635; 99283

== ENCOUNTER 2022-04-22 15:07 | Observation (INO) | payer MEDICAID, SELFPAY ==
--- NOTE | ~2022-04-22 | XR_ITS ---
EXAMINATION: XR CHEST CLINICAL INFORMATION: Chest pain COMPARISON: None TECHNIQUE: 2 views of the chest were obtained. FINDINGS: No significant abnormality is noted involving the heart, lungs, mediastinum, bony thorax or soft tissues. XR/XR chest 2V IMPRESSION: Unremarkable examination.
--- NOTE | ~2022-04-22 | CT_ITS ---
EXAMINATION: CT ABDOMEN AND PELVIS WITH CONTRAST CLINICAL INFORMATION: Lower abdominal pain COMPARISON: CT abdomen pelvis 07/03/2020 TECHNIQUE: Multidetector volumetric images were obtained from the superior aspect of the liver through the pubic symphysis following administration 85 mL of Omnipaque 350 intravenous contrast. Sagittal and coronal reformatted images were obtained on the technologist's workstation. Oral contrast: No This CT examination was performed using dose optimization techniques as appropriate, variously including the following: *Automated exposure control *Adjustment of mA and/or kV according to patient size (this includes techniques or standardized protocols for targeted exams where dose is matched to indication/reason for exam; i.e. extremities or head) *Use of iterative reconstruction technique DLP: 1020 mGy-cm FINDINGS: LUNG BASES: Right middle lobe atelectasis. No new suspicious or enlarging pulmonary nodule. ABDOMINAL AND PELVIC WALL: Unremarkable. LIVER AND BILIARY TREE: Hypoattenuating hepatic parenchyma suggesting hepatic steatosis. Liver is enlarged measuring 26.3 cm in span. GALLBLADDER: Unremarkable. PANCREAS: Unremarkable. SPLEEN: Spleen is surgically absent. Hypertrophied accessory splenules noted. ADRENAL GLANDS: Unremarkable. KIDNEYS AND URETERS: A duplicated left renal collecting system. Right kidney is unremarkable. GASTROINTESTINAL TRACT: Colonic diverticulosis without evidence of diverticulitis. Normal appendix. VASCULAR: Unremarkable. LYMPH NODES/PERITONEUM: No lymphadenopathy. FREE FLUID: None. BLADDER: Unremarkable. PELVIC VISCERA: Unremarkable. OSSEOUS STRUCTURES: Multilevel degenerative disc disease. CT/CT abdomen pelvis w IV con IMPRESSION: No acute findings to explain symptoms of abdominal pain. Hepatomegaly and hepatic steatosis.
[2022-04-22 16:00] VITALS: BP 145/90; PULSE 93; RESP 18; TEMP 36.5; O2SAT 97; BMI 41.0
--- NOTE | 2022-04-22 16:00 | ED.CHESTPAIN ---
HPI - Chest Pain General Chief Complaint: General Medical <Kerri Phillips NP - Last Filed: 04/22/22 16:04> Stated Complaint: chest pain,vomiting <Kerri Phillips NP - Last Filed: 04/22/22 16:04> Time Seen by Provider: 04/22/22 17:26 <Kerri Phillips NP - Last Filed: 04/22/22 16:04> Source: patient <SHAMIR Wilson - Last Filed: 04/22/22 23:00> Mode of arrival: ambulatory <SHAMIR Wilson - Last Filed: 04/22/22 23:00> Limitations: no limitations <SHAMIR Wilson - Last Filed: 04/22/22 23:00> History of Present Illness HPI narrative: 41-year-old female history of GERD, diabetes, hyperlipidemia, hypertension, asthma, diabetes, substance abuse presents to the emergency department with complaints of burning in her throat and chest x1 week, patient tells me that she has also been vomiting, vomit is a dark color and she tells me it almost looks ?black? she tells me this has been going on for 2 days, she also reports this black vomit is coming out of her nose. She tells me that she reported this to her PCP and her PCP told her that she needed to come in to rule out bleeding internally or a bleeding ulcer. Patient tells me that she takes Protonix however she ran out about a week ago and since then she has been experiencing the symptoms. Patient denies fevers, chills, chest pain, shortness of breath, abdominal pain, trauma to chest or abdomen, headache, vision changes, dizziness, history of GI bleed, history of upper GI bleed. Patient has never had an EGD. To note upon history taking patient comfortably eating [employer] and drinking soda. <SHAMIR Wilson - Last Filed: 04/22/22 23:00> Related Data Home Medications: Home Medications Medication Instructions Recorded Confirmed ergocalciferol (vitamin D2) 1,250 1,250 mcg PO QWEEK 10/16/20 05/26/21 mcg (50,000 unit) capsule gabapentin 100 mg capsule 100 mg PO BID 10/16/20 05/26/21 melatonin 10 mg capsule 10 mg PO BEDTIME PRN 10/16/20 05/26/21 omeprazole 40 mg capsule,delayed 40 mg PO DAILY 10/16/20 05/26/21 release quetiapine 200 mg tablet (Seroquel) 200 mg PO BEDTIME 10/16/20 05/26/21 risperidone 2 mg tablet 2 mg PO DAILY 10/16/20 05/26/21 sertraline 100 mg tablet (Zoloft) 100 mg PO DAILY 10/16/20 05/26/21 topiramate 25 mg sprinkle capsule 25 mg PO BID 10/16/20 05/26/21 (Topamax) Previous Rx's Medication Instructions Recorded ondansetron HCl 4 mg tablet 4 mg PO Q8H PRN nausea #8 tabs 05/04/20 (Zofran) dulaglutide 0.75 mg/0.5 mL 0.75 mg (0.5 mL) subcut QWEEK #2 mL 01/20/21 subcutaneous pen injector (Trulicity) atorvastatin 40 mg tablet 40 mg PO BEDTIME #30 tabs 05/26/21 blood sugar diagnostic (FreeStyle #150 ea 05/26/21 Lite Strips) blood-glucose meter (FreeStyle #1 ea 05/26/21 Lite Meter kit) insulin degludec 200 unit/mL (3 44 unit (0.22 mL) subcut BEDTIME 05/26/21 mL) subcutaneous pen (Tresiba 30 days #9 mL FlexTouch U-200 insulin) insulin lispro 100 unit/mL See Rx Instructions subcut TID #15 05/26/21 subcutaneous pen (Humalog KwikPen mL (U-100) Insulin) lancets 28 gauge (FreeStyle #200 ea 05/26/21 Lancets) <Kerri Phillips NP - Last Filed: 04/22/22 16:04> Allergies/Adverse Reactions: Allergies Allergy/AdvReac Type Severity Reaction Status Date / Time ibuprofen [From Motrin] AdvReac Dry Mucus Verified 05/26/21 07:49 Membranes morphine AdvReac Dry Mucus Verified 05/26/21 07:49 Membranes <Kerri Phillips NP - Last Filed: 04/22/22 16:04> Review of Systems Review of Systems: Constitutional : No Weight loss, No Fever, No Chills, No Fatigue, No Malaise ENT/Mouth : No sore throat, No Rhinorrhea Eyes: No Eye Pain, No Swelling, No Redness Cardiovascular : + Chest Pain, No SOB, No Dyspnea on Exertion, No Orthopnea, No Edema, No Palpitations Respiratory : No Cough, No Sputum, No Wheezing Gastrointestinal : + Nausea, + Vomiting, No Diarrhea, No Constipation, No abdominal Pain, No Hematochezia, No Melena Genitourinary : No Dysuria, No Urinary Frequency, No Hematuria, Musculoskeletal : No joint pain, No Myalgias, No Joint Swelling Skin : No Skin Lesions, No rash Neuro : No Weakness, No Numbness, No Dizziness, No Headache Psych : No Anxiety/Panic, No Depression All other systems reviewed and are negative <SHAMIR Wilson - Last Filed: 04/22/22 23:00> Yes all other systems are reviewed and are negative <SHAMIR Wilson - Last Filed: 04/22/22 23:00> [facility] Past Medical History Attestation statement: The following information was validated with the patient. <SHAMRI Wilson - Last Filed: 04/22/22 23:00> Source: old records reviewed and nursing notes reviewed <SHAMIR Wilson - Last Filed: 04/22/22 23:00> Medical History: Medical History Asthma Diabetes Diabetes type 2, uncontrolled Hyperlipidemia LDL goal <100 Hypertension Obesity due to excess calories Substance abuse Type 2 diabetes mellitus with chronic kidney disease Vitamin D deficiency <Kerri Phillips NP - Last Filed: 04/22/22 16:04> Surgical History: Surgical History Hx of section Hx of splenectomy <Kerri Phillips NP - Last Filed: 04/22/22 16:04> Family History Family History: Family History Mother Diabetes Maternal Grandmother Diabetes Maternal Aunt Diabetes Hypertension Father No problems noted. <ANUP Lo Last Filed: 04/22/22 16:04> Social History Social History: Social History Household Members: None Alcohol intake: never Patient Tobacco Use Status: Current everyday Tobacco user Cigarettes Per Day: 5 Advance Directives: No Advance Directives Information Provided: Yes <Kerri Phillips NP - Last Filed: 04/22/22 16:04> Physical Exam Vital Signs: Vital Signs: Last Vital Signs Temp 98.0 F 04/22/22 21:32 Pulse 91 04/22/22 21:32 Resp 18 04/22/22 21:32 BP 118/73 04/22/22 21:32 Pulse Ox 97 04/22/22 21:32 O2 Del Method 04/22/22 21:32 BMI result Body Mass Index 41.0 <Kerir Phillips NP - Last Filed: 04/22/22 16:04> Vital Signs: Last Vital Signs Temp 98.0 F 04/22/22 21:32 Pulse 91 04/22/22 21:32 Resp 18 04/22/22 21:32 BP 118/73 04/22/22 21:32 Pulse Ox 97 04/22/22 21:32 O2 Del Method 04/22/22 21:32 BMI result Body Mass Index 41.0 Vital signs stable <SHAMIR Wilson - Last Filed: 04/22/22 23:00> Appearance: Alert.? Oriented X3.? No acute distress.? Head: Normocephalic, atraumatic, no step-offs or deformities Eyes: Pupils equal, round and reactive to light.? ENT: Pharynx normal.? Neck: Normal inspection.? Neck supple.? CVS: Normal heart rate and rhythm.? Pulses normal.? Respiratory: No respiratory distress.? Breath sounds normal.? Abdomen: Soft and nontender.? Skin: Skin warm and dry.? Normal skin color.? Normal skin turgor.? Extremities: No lower extremity edema.? No calf ttp. 5/5 strength to bilateral upper and lower extremities Neuro: Oriented X 3.? No motor deficit.? No sensory deficit. CN 2-12 intact <SHAMIR Wilson - Last Filed: 04/22/22 23:00> Course Course Course Narrative: This is a rapid medical exam. deferred additional HPI, ROS, PE to primary provider. 41 yo female with past medical history GERD, DM, CHLOÉ, HTN, HLD, asthma here with complaints of chest and throat burning, vomiting black x 2 days. Recently ran out of protonix (1 week ago) and when she was taking this she was feeling well. Spoke to PCP and per patient referred in to rule out an ulcer or bleeding internally. VSS. Will obtain labs, EKG, CXR <Kerri Phillips NP - Last Filed: 04/22/22 16:04> Reevaluation(s) Reevaluation #1: Chemistry with slightly elevated white blood cell count 13.9 however patient's white blood cell count appears to be chronically elevated this could be chronic in nature it could be secondary to reactivity from nausea and vomiting, patient is noted to have a baseline normocytic anemia present today. Chemistry with no acute electrolyte abnormalities requiring intervention. Troponin and EKG pending. Now complaining of lower abd pain . <SHAMIR Wilson - Last Filed: 04/22/22 23:00> Time: 18:02 <SHAMIR Wilson - Last Filed: 04/22/22 23:00> Reevaluation #2: CT of the abdomen pelvis unremarkable. Hepatomegaly and hepatic steatosis noted however no acute findings. Patient is still tolerating p.o.. I did discuss this case with GI to see if there was a way to have prompt outpatient follow-up for this patient due to her concerning story of black vomit, patient has been eating and drinking here, tolerating p.o. without difficulties. GI Dr. Rodrigez recommends NPO after midnight for possible endoscopy tomorrow. Will discuss case with hospitalist for admission ? GIB <SHAMIR Wilson - Last Filed: 04/22/22 23:00> Time: 22:58 <SHAMIR Wilson - Last Filed: 04/22/22 23:00> Medications Administered Discontinued Medications Generic Name Dose Route Start Last Admin Trade Name Freq PRN Reason Stop Dose Admin Al Hydroxide/Mg Hydroxide 30 ml 04/22/22 17:30 04/22/22 17:51 Magnesium Hydrox/Alum Hydrox 30 Ml Oral.Susp PO 04/22/22 17:31 30 ml ONCE ONE Administration Belladonna Alkaloids/Phenobarbital 10 ml 04/22/22 17:30 04/22/22 17:51 Phenobarb/Hyoscy/Atropine/Scop 10 Ml Elixir PO 04/22/22 17:31 10 ml ONCE ONE Administration Iohexol 100 ml 04/22/22 19:07 04/22/22 19:08 Iohexol 350 Mg/Ml 100 Ml Infus..Btl IV 04/22/22 19:08 85 ml ONCE ONE Administration Ondansetron HCl 4 mg 04/22/22 17:30 04/22/22 17:50 Ondansetron Odt 4 Mg Tab.Rapdis TRANSLINGU 04/22/22 17:31 4 mg ONCE ONE Administration <Kerri Phillips NP - Last Filed: 04/22/22 16:04> Medications Administered Discontinued Medications Generic Name Dose Route Start Last Admin Trade Name Freq PRN Reason Stop Dose Admin Al Hydroxide/Mg Hydroxide 30 ml 04/22/22 17:30 04/22/22 17:51 Magnesium Hydrox/Alum Hydrox 30 Ml Oral.Susp PO 04/22/22 17:31 30 ml ONCE ONE Administration Belladonna Alkaloids/Phenobarbital 10 ml 04/22/22 17:30 04/22/22 17:51 Phenobarb/Hyoscy/Atropine/Scop 10 Ml Elixir PO 04/22/22 17:31 10 ml ONCE ONE Administration Iohexol 100 ml 04/22/22 19:07 04/22/22 19:08 Iohexol 350 Mg/Ml 100 Ml Infus..Btl IV 04/22/22 19:08 85 ml ONCE ONE Administration Ondansetron HCl 4 mg 04/22/22 17:30 04/22/22 17:50 Ondansetron Odt 4 Mg Tab.Rapdis TRANSLINGU 04/22/22 17:31 4 mg ONCE ONE Administration <SHAMIR Wilson - Last Filed: 04/22/22 23:00> Medical Decision Making Medical Decision Making [facility] Narrative: 1730 41-year-old female presents with burning and chest and throat x1 week also reports vomiting black and its coming out of her nose. Reports burning when she eats. For the past 2 days. Patient with history of GERD, on maintenance Protonix however ran out a week ago. Physical examination benign. Patient adamantly refusing rectal exam Concerns for possible GERD versus gastritis. Unlikely upper GI bleed, bleeding ulcer, Kesha-Freed tear, lower GI bleed, varicocele bleed Plan at this time basic labs, chest x-ray, OBS. Will give patient GI cocktail. Upon chart review IUD cannot find patient being on Protonix, it appears as though patient takes omeprazole. <SHAMIR Wilson - Last Filed: 04/22/22 23:00> Differential Diagnosis Differential Diagnoses: The differential diagnosis associated with the presentation includes <SHAMIR Wilson - Last Filed: 04/22/22 23:00> Concerns for possible GERD versus gastritis. Unlikely upper GI bleed, bleeding ulcer, Kesha-Freed tear, lower GI bleed, varicocele bleed <SHAMIR Wilson - Last Filed: 04/22/22 23:00> Admission/Observation Consideration of admission/observation: Escalation of care including admission/observation considered <SHAMIR Wilson - Last Filed: 04/22/22 23:00> Lab Data Result Diagrams: 04/22/22 17:03 04/22/22 17:03 <Kerri Phillips NP - Last Filed: 04/22/22 16:04> Labs: Lab Results 04/22/22 04/22/22 04/22/22 Range/Units 17:03 17:03 17:03 WBC 13.9 H (4.8-10.8) X10*3/uL RBC 4.46 (4.20-5.50) X10*6/uL Hgb 11.6 L (12.0-16.0) g/dl Hct 35.9 L (37.0-47.0) % MCV 80.5 (80.0-98.0) fL MCH 26.0 L (27.0-33.0) pg MCHC 32.3 (31.0-35.0) g/dl RDW 15.7 (11.0-16.0) % Plt Count 364 (160-400) X10*3/uL MPV 11.4 (9.4-12.3) fL Immature Gran % (Auto) 0.3 (0.0-0.4) % Neut % (Auto) 48.7 (45-73) % Lymph % (Auto) 41.7 H (20-40) % [place] % (Auto) 6.8 (2-11) % Eos % (Auto) 1.6 (0-4) % Baso % (Auto) 0.9 (0-2) % Lymph # (Auto) 5.8 H (1.2-4.9) X10*3/uL [place] # (Auto) 1.0 (0.1-1.2) X10*3/uL Eos # (Auto) 0.2 (0.0-0.4) X10*3/uL Baso # (Auto) 0.1 (0.0-0.2) X10*3/uL Abs Immat Gran (auto) 0.04 H (0.00-0.03) X10*3/uL Absolute Neuts (auto) 6.8 (2.0-8.3) x10*3/uL Absolute Nucleated RBC 0.000 (0.0-0.012) X10*3/uL Nucleated RBC % (auto) 0.0 (0.0-0.2) /100WBC Smear Tech's Comments VERIFIED Sodium 137 (135-145) mmol/L Potassium 3.9 (3.3-5.1) mmol/L Chloride 101 (96-108) mmol/L Carbon Dioxide 26 (22-29) mmol/L Anion Gap 14 (12-20) BUN 11 (9-16) mg/dL Creatinine 1.03 (0.5-1.4) mg/dL Estim Creat Clear Calc 107.6 Estimated GFR 60 Random Glucose 275 H (60-115) mg/dL Calcium 9.7 (8.4-10.2) mg/dL Total Bilirubin 0.3 (0.0-1.0) mg/dL Direct Bilirubin < 0.2 (0.0-0.5) mg/dL AST 13 (5-31) U/L ALT 14 (0-31) U/L Alkaline Phosphatase 87 (39-117) U/L Troponin I High Sens < 3.5 (<3.5-17.0) ng/L Total Protein 7.5 (6.5-8.0) g/dL Albumin 4.1 (3.5-5.0) g/dL Beta HCG, Quant < 2 mIU/mL COVID-19 ([facility]) (Negative) COVID-19 Clin Com 04/22/22 04/22/22 Range/Units 17:03 22:01 WBC 14.6 H (4.8-10.8) X10*3/uL RBC 4.46 (4.20-5.50) X10*6/uL Hgb 11.7 L (12.0-16.0) g/dl Hct 35.9 L (37.0-47.0) % MCV 80.5 (80.0-98.0) fL MCH 26.2 L (27.0-33.0) pg MCHC 32.6 (31.0-35.0) g/dl RDW 15.7 (11.0-16.0) % Plt Count 390 (160-400) X10*3/uL MPV 11.0 (9.4-12.3) fL Immature Gran % (Auto) 0.4 (0.0-0.4) % Neut % (Auto) 51.4 (45-73) % Lymph % (Auto) 39.3 (20-40) % [place] % (Auto) 6.6 (2-11) % Eos % (Auto) 1.6 (0-4) % Baso % (Auto) 0.7 (0-2) % Lymph # (Auto) 5.8 H (1.2-4.9) X10*3/uL [place] # (Auto) 1.0 (0.1-1.2) X10*3/uL Eos # (Auto) 0.2 (0.0-0.4) X10*3/uL Baso # (Auto) 0.1 (0.0-0.2) X10*3/uL Abs Immat Gran (auto) 0.06 H (0.00-0.03) X10*3/uL Absolute Neuts (auto) 7.5 (2.0-8.3) x10*3/uL Absolute Nucleated RBC 0.000 (0.0-0.012) X10*3/uL Nucleated RBC % (auto) 0.0 (0.0-0.2) /100WBC Smear Tech's Comments Sodium (135-145) mmol/L Potassium (3.3-5.1) mmol/L Chloride (96-108) mmol/L Carbon Dioxide (22-29) mmol/L Anion Gap (12-20) BUN (9-16) mg/dL Creatinine (0.5-1.4) mg/dL Estim Creat Clear Calc Estimated GFR Random Glucose (60-115) mg/dL Calcium (8.4-10.2) mg/dL Total Bilirubin (0.0-1.0) mg/dL Direct Bilirubin (0.0-0.5) mg/dL AST (5-31) U/L ALT (0-31) U/L Alkaline Phosphatase (39-117) U/L Troponin I High Sens (<3.5-17.0) ng/L Total Protein (6.5-8.0) g/dL Albumin (3.5-5.0) g/dL Beta HCG, Quant mIU/mL COVID-19 ([facility]) Negative (Negative) COVID-19 Clin Com See Note <Kerri Phillips, MANAGER AMBULATORY - Last Filed: 04/22/22 16:04> Lab Results 04/22/22 04/22/22 04/22/22 Range/Units 17:03 17:03 17:03 WBC 13.9 H (4.8-10.8) X10*3/uL RBC 4.46 (4.20-5.50) X10*6/uL Hgb 11.6 L (12.0-16.0) g/dl Hct 35.9 L (37.0-47.0) % MCV 80.5 (80.0-98.0) fL MCH 26.0 L (27.0-33.0) pg MCHC 32.3 (31.0-35.0) g/dl RDW 15.7 (11.0-16.0) % Plt Count 364 (160-400) X10*3/uL MPV 11.4 (9.4-12.3) fL Immature Gran % (Auto) 0.3 (0.0-0.4) % Neut % (Auto) 48.7 (45-73) % Lymph % (Auto) 41.7 H (20-40) % [place] % (Auto) 6.8 (2-11) % Eos % (Auto) 1.6 (0-4) % Baso % (Auto) 0.9 (0-2) % Lymph # (Auto) 5.8 H (1.2-4.9) X10*3/uL [place] # (Auto) 1.0 (0.1-1.2) X10*3/uL Eos # (Auto) 0.2 (0.0-0.4) X10*3/uL Baso # (Auto) 0.1 (0.0-0.2) X10*3/uL Abs Immat Gran (auto) 0.04 H (0.00-0.03) X10*3/uL Absolute Neuts (auto) 6.8 (2.0-8.3) x10*3/uL Absolute Nucleated RBC 0.000 (0.0-0.012) X10*3/uL Nucleated RBC % (auto) 0.0 (0.0-0.2) /100WBC Smear Tech's Comments VERIFIED Sodium 137 (135-145) mmol/L Potassium 3.9 (3.3-5.1) mmol/L Chloride 101 (96-108) mmol/L Carbon Dioxide 26 (22-29) mmol/L Anion Gap 14 (12-20) BUN 11 (9-16) mg/dL Creatinine 1.03 (0.5-1.4) mg/dL Estim Creat Clear Calc 107.6 Estimated GFR 60 Random Glucose 275 H (60-115) mg/dL Calcium 9.7 (8.4-10.2) mg/dL Total Bilirubin 0.3 (0.0-1.0) mg/dL Direct Bilirubin < 0.2 (0.0-0.5) mg/dL AST 13 (5-31) U/L ALT 14 (0-31) U/L Alkaline Phosphatase 87 (39-117) U/L Troponin I High Sens < 3.5 (<3.5-17.0) ng/L Total Protein 7.5 (6.5-8.0) g/dL Albumin 4.1 (3.5-5.0) g/dL Beta HCG, Quant < 2 mIU/mL COVID-19 ([facility]) (Negative) COVID-19 Clin Com 04/22/22 04/22/22 Range/Units 17:03 22:01 WBC 14.6 H (4.8-10.8) X10*3/uL RBC 4.46 (4.20-5.50) X10*6/uL Hgb 11.7 L (12.0-16.0) g/dl Hct 35.9 L (37.0-47.0) % MCV 80.5 (80.0-98.0) fL MCH 26.2 L (27.0-33.0) pg MCHC 32.6 (31.0-35.0) g/dl RDW 15.7 (11.0-16.0) % Plt Count 390 (160-400) X10*3/uL MPV 11.0 (9.4-12.3) fL Immature Gran % (Auto) 0.4 (0.0-0.4) % Neut % (Auto) 51.4 (45-73) % Lymph % (Auto) 39.3 (20-40) % [place] % (Auto) 6.6 (2-11) % Eos % (Auto) 1.6 (0-4) % Baso % (Auto) 0.7 (0-2) % Lymph # (Auto) 5.8 H (1.2-4.9) X10*3/uL [place] # (Auto) 1.0 (0.1-1.2) X10*3/uL Eos # (Auto) 0.2 (0.0-0.4) X10*3/uL Baso # (Auto) 0.1 (0.0-0.2) X10*3/uL Abs Immat Gran (auto) 0.06 H (0.00-0.03) X10*3/uL Absolute Neuts (auto) 7.5 (2.0-8.3) x10*3/uL Absolute Nucleated RBC 0.000 (0.0-0.012) X10*3/uL Nucleated RBC % (auto) 0.0 (0.0-0.2) /100WBC Smear Tech's Comments Sodium (135-145) mmol/L Potassium (3.3-5.1) mmol/L Chloride (96-108) mmol/L Carbon Dioxide (22-29) mmol/L Anion Gap (12-20) BUN (9-16) mg/dL Creatinine (0.5-1.4) mg/dL Estim Creat Clear Calc Estimated GFR Random Glucose (60-115) mg/dL Calcium (8.4-10.2) mg/dL Total Bilirubin (0.0-1.0) mg/dL Direct Bilirubin (0.0-0.5) mg/dL AST (5-31) U/L ALT (0-31) U/L Alkaline Phosphatase (39-117) U/L Troponin I High Sens (<3.5-17.0) ng/L Total Protein (6.5-8.0) g/dL Albumin (3.5-5.0) g/dL Beta HCG, Quant mIU/mL COVID-19 ([facility]) Negative (Negative) COVID-19 Clin Com See Note <SHAMIR Wilson - Last Filed: 04/22/22 23:00> Critical Care Time Critical Care Time Critical Care Time: Yes <SHAMIR Wilson - Last Filed: 04/22/22 23:00> Total Critical Care Time: 35 <SHAMIR Wilson - Last Filed: 04/22/22 23:00> Attestation: I attest to this time spent taking care of the patient, obtaining history, physical, reviewing labs, imaging, speaking to my attending, speaking to specialist. <SHAMIR Wilson - Last Filed: 04/22/22 23:00> Discharge Plan Discharge Clinical Impression: Vomiting <Kerri Phillips NP - Last Filed: 04/22/22 16:04> Patient Disposition: Admitted As Inpatient <Kerri Phillips NP - Last Filed: 04/22/22 16:04> Prescriptions: No Action Trulicity 0.75 mg/0.5 mL pen injector 0.75 mg subcut QWEEK Qty: 2 6RF ondansetron HCl [Zofran] 4 mg tablet 4 mg PO Q8H PRN (Reason: nausea) Qty: 8 0RF quetiapine [Seroquel] 200 mg tablet 200 mg PO BEDTIME gabapentin 100 mg capsule 100 mg PO BID ergocalciferol (vitamin D2) 1,250 mcg (50,000 unit) capsule 1,250 mcg PO QWEEK sertraline [Zoloft] 100 mg tablet 100 mg PO DAILY omeprazole 40 mg capsule,delayed release(DR/EC) 40 mg PO DAILY melatonin 10 mg capsule 10 mg PO BEDTIME PRN topiramate [Topamax] 25 mg capsule, sprinkle 25 mg PO BID risperidone 2 mg tablet 2 mg PO DAILY Tresiba FlexTouch U-200 200 unit/mL (3 mL) insulin pen 44 unit subcut BEDTIME 30 Days Qty: 9 6RF atorvastatin 40 mg tablet 40 mg PO BEDTIME Qty: 30 11RF insulin lispro [Humalog KwikPen Insulin] 100 unit/mL insulin pen See Rx Instructions subcut TID Qty: 15 4RF Rx Instructions: 6u breakfast, 8 u lunch & dinner, + 2 unit if bg over 200 subcut 3 times a day; (DME) blood-glucose meter [FreeStyle Lite Meter] Kit See Rx Instructions .ROUTE .MEDSUPPLY Qty: 1 0RF Rx Instructions: As directed (DME) FreeStyle Lite Strips Strip See Rx Instructions .ROUTE .MEDSUPPLY Qty: 150 11RF Rx Instructions: As directed four times a day (DME) lancets [FreeStyle Lancets] 28 gauge misc See Rx Instructions .ROUTE .MEDSUPPLY Qty: 200 11RF Rx Instructions: 4 times a day <Kerri Phillips NP - Last Filed: 04/22/22 16:04>
--- NOTE | 2022-04-22 16:02 | ECG_ITS ---
Test Reason : CHEST PAIN Blood Pressure : / mmHG Vent. Rate : 089 BPM Atrial Rate : 089 BPM P-R Int : 208 ms QRS Dur : 090 ms QT Int : 374 ms P-R-T Axes : 060 006 065 degrees QTc Int : 455 ms Normal sinus rhythm Normal ECG When compared with ECG of 03-JUL-2020 13:45, No significant change was found Referred By: Kerri Phillips Electronically Signed By:BRENDA MARTINEZ
[2022-04-22 17:14] LABS: Basophils Absolute Auto 0.1 X10*3/uL (0.0-0.2); Basophils Percent Auto 0.9 % (0-2); Eosinophils Absolute Auto 0.2 X10*3/uL (0.0-0.4); Eosinophils Percent Auto 1.6 % (0-4); Hematocrit 35.9 % (37.0-47.0); Hemoglobin 11.6 g/dl (12.0-16.0); Imm Gran Abs Auto 0.04 X10*3/uL (0.00-0.03); Imm Gran Pct Auto 0.3 % (0.0-0.4); Lymphocytes Absolute Auto 5.8 X10*3/uL (1.2-4.9); Lymphocytes Percent Auto 41.7 % (20-40); MANUAL DIFF FLAG SCAN; Mean Corpuscular HGB Conc 32.3 g/dl (31.0-35.0); Mean Corpuscular Volume 80.5 fL (80.0-98.0); Mean Platelet Volume 11.4 fL (9.4-12.3); Monocytes Percent Auto 6.8 % (2-11); Neutrophils Absolute Auto 6.8 x10*3/uL (2.0-8.3); Neutrophils Percent Auto 48.7 % (45-73); Platelet Count 364 X10*3/uL (160-400); Red Blood Count 4.46 X10*6/uL (4.20-5.50); Red Cell Distribution Width 15.7 % (11.0-16.0); SCAN SMEAR FLAG 1; White Blood Count 13.9 X10*3/uL (4.8-10.8)
[2022-04-22 17:28] LABS: Alanine Aminotransferase 14 U/L (0-31); Albumin Level 4.1 g/dL (3.5-5.0); Alkaline Phosphatase 87 U/L (39-117); Anion Gap 14 (12-20); Aspartate Amino Transferase 13 U/L (5-31); Bilirubin Direct < 0.2 mg/dL (0.0-0.5); Bilirubin Total 0.3 mg/dL (0.0-1.0); Blood Urea Nitrogen 11 mg/dL (9-16); Calcium 9.7 mg/dL (8.4-10.2); Carbon Dioxide 26 mmol/L (22-29); Chloride 101 mmol/L (96-108); Creatinine Clr Calc Pharmacy 107.6; Estimated Glomerular Filt Rate 60; Glucose Random 275 mg/dL (60-115); Potassium 3.9 mmol/L (3.3-5.1); Sodium 137 mmol/L (135-145); Total Protein 7.5 g/dL (6.5-8.0)
[2022-04-22 17:35] LABS: COVID-19 Test Negative (Negative); IDNOW Serial# 16C4AD1C
--- NOTE | 2022-04-22 17:39 | PC.NURSE ---
Patient complaint of some abdominal and chest discomfort complaint of vomiting up black fluid. AOx 4 neuros intactambulatory with steady gait. No respiratory distress noted. Patient refusing IV provider aware. Patient ambulated t o ED radiology will CTM
--- NOTE | 2022-04-22 17:42 | PC.NURSE ---
Patient has vomiting abdominal pain has Christopher at bedside provider aware.
[2022-04-22] MEDS: Ondansetron ODT 4 MG TAB.RAPDIS TRANSLINGU (17:50)
[2022-04-22] MEDS: Magnesium Hydrox/Alum Hydrox 30 ML ORAL.SUSP PO (17:51)
[2022-04-22] MEDS: PHENobarb/Hyoscy/Atropine/Scop 10 ML ELIXIR PO (17:51)
[2022-04-22 17:52] LABS: Troponin-I High Sensitivity < 3.5 ng/L (<3.5-17.0)
--- NOTE | 2022-04-22 17:54 | PC.NURSE ---
LS clear ABD soft non tender no guarding noted. Patient reports increased pain discomfort with eating/swallowing EKG obtained tolerated GI cocktail will CTM
[2022-04-22 18:13] LABS: SLIDE REVIEW VERIFIED
[2022-04-22 18:27] LABS: HCG Quantitative < 2 mIU/mL
--- NOTE | 2022-04-22 18:44 | PC.NURSE ---
Patient reports good effect with GI cocktail will CTM
[2022-04-22] MEDS: iohexoL 350 MG/ML 100 ML INFUS..BTL IV (19:08)
[2022-04-22 19:20] VITALS: BP 136/98; PULSE 82; RESP 20; TEMP 36.7; O2SAT 97
[2022-04-22 20:05] VITALS: BP 120/73; PULSE 79; RESP 18; TEMP 36.7; O2SAT 98
--- NOTE | 2022-04-22 20:21 | PC.NURSE ---
PT A&Ox4, denies any pain, denies V/D. PT ambulating to BR independently. Reports nausea after eating food brought in.
[2022-04-22 21:32] VITALS: BP 118/73; PULSE 91; RESP 18; TEMP 36.7; O2SAT 97
[2022-04-22 22:06] LABS: Basophils Absolute Auto 0.1 X10*3/uL (0.0-0.2); Basophils Percent Auto 0.7 % (0-2); Eosinophils Absolute Auto 0.2 X10*3/uL (0.0-0.4); Eosinophils Percent Auto 1.6 % (0-4); Hematocrit 35.9 % (37.0-47.0); Hemoglobin 11.7 g/dl (12.0-16.0); Imm Gran Abs Auto 0.06 X10*3/uL (0.00-0.03); Imm Gran Pct Auto 0.4 % (0.0-0.4); Lymphocytes Absolute Auto 5.8 X10*3/uL (1.2-4.9); Lymphocytes Percent Auto 39.3 % (20-40); Mean Corpuscular HGB Conc 32.6 g/dl (31.0-35.0); Mean Corpuscular Hemoglobin 26.2 pg (27.0-33.0); Mean Corpuscular Volume 80.5 fL (80.0-98.0); Monocytes Percent Auto 6.6 % (2-11); Neutrophils Absolute Auto 7.5 x10*3/uL (2.0-8.3); Neutrophils Percent Auto 51.4 % (45-73); Platelet Count 390 X10*3/uL (160-400); Red Blood Count 4.46 X10*6/uL (4.20-5.50); Red Cell Distribution Width 15.7 % (11.0-16.0); White Blood Count 14.6 X10*3/uL (4.8-10.8)
[2022-04-22 22:27] LABS: MANUAL DIFF FLAG SCAN; SCAN SMEAR FLAG 1
--- NOTE | 2022-04-22 23:02 | PC.NURSE ---
PT previous IV infiltrated. PT reports being a had stick, requesting ultrasound guided IV, provider notified.
[2022-04-22 23:04] VITALS: BP 123/103; PULSE 86; RESP 18; O2SAT 99
[2022-04-22] MEDS: Nicotine Polacrilex 2 MG GUM BUCCAL (23:27)
[2022-04-22] MEDS: Nicotine 7 MG PATCH.TD24 TRANSDERMA (23:27)
--- NOTE | 2022-04-22 23:55 | PM.IMHP ---
History of Present Illness Date of Service: 04/22/22 Chief Complaint: coffee ground emesis This is a 41-year-old female with past medical history of type 2 diabetes, hyperlipidemia, hypertension, obesity, history of substance abuse, vitamin-D deficiency, presents to the hospital with complaints of vomiting. Patient reports that her symptoms started few days ago, she has history of severe GERD, takes omeprazole daily, reports that she ran out of her omeprazole few days ago, and ever since started having coffee-ground emesis. She reports burning sensation in the chest, worse with eating. Reports no difficulty swallowing but every time she eats she feels that food has a hard time going down and he feels scratchy in her chest like something is blocking. She describes the chest pain as sharp, worse with eating. Patient denies any headache, no dizziness, no change in vision, no palpitations, reports discomfort in the lower abdomen, but denies any urinary symptoms, denies any diarrhea or constipation. On arrival to the ED patient hemodynamically stable with no significant abnormal vitals Labs are significant for WBC count of 13.9, hemoglobin of 11.6 which is around her baseline, hematocrit 35.9, labs otherwise unremarkable, Abdomen pelvic CT shows no acute findings Chest x-ray negative Case was discussed with Gastroenterology who recommended admission for possible EGD in a.m. Review of Systems Review of Systems: Yes all other systems are reviewed and are negative [facility] Medical History Asthma Diabetes Diabetes type 2, uncontrolled Hyperlipidemia LDL goal <100 Hypertension Obesity due to excess calories Substance abuse Type 2 diabetes mellitus with chronic kidney disease Vitamin D deficiency Family History Mother Diabetes Maternal Grandmother Diabetes Maternal Aunt Diabetes Hypertension Father No problems noted. Surgical History Hx of section Hx of splenectomy Social History Household Members: Other Household Members Other:: roommate Housing Other:: Hose for woman Do you presently have visiting nurse or other home services: No Alcohol intake: never Patient Tobacco Use Status: Current everyday Tobacco user Cigarettes Per Day: 5 Smoked in Last 30 Days: Yes Patient Interested in Nicotine Replacement: No Patient Given Instructions on How to Stop Smoking: No Second Hand Smoke Exposure: Yes Use of substances other than those prescribed or required for medical reasons: No Currently Displaying Signs/Symptoms of Drug Intoxication Withdrawal: No Any prior treatment program specific to substance use: No Have you been hit, kicked, punched, or otherwise hurt by someone within the past year? If so, by whom?: No Do you feel safe in your current relationship?: No Current Relationship Is there a partner from a previous relationship who is making you feel unsafe now?: No Are you made to feel afraid or neglected: No Advance Directives: No Advance Directives Information Provided: Yes Do you have thoughts of harming others: None Do you have a plan to hurt others: No Plan Recently lost weight without trying: No How much weight loss: Not applicable Eating poorly because of decreased appetite: No Nutrition screen score: 0 Nutrition Risks: No Nutritional Risk Patient : No : No Poor oral hygiene: No Meds Allergies Allergy/AdvReac Type Severity Reaction Status Date / Time ibuprofen [From Motrin] Allergy Anaphylaxis Verified 04/22/22 23:07 morphine Allergy Hives Verified 04/22/22 23:07 Active Medications: Current Medications Pharmacy Consult (Consult Rx Perform Med Rec) 1 each MISCELLANE ONCE PRN PRN Reason: Consult order Home Medications Medication Instructions Recorded Confirmed Last Taken Type ergocalciferol (vitamin D2) 1,250 1,250 mcg PO QWEEK 10/16/20 05/26/21 Unknown History mcg (50,000 unit) capsule gabapentin 100 mg capsule 100 mg PO BID 10/16/20 05/26/21 Unknown History melatonin 10 mg capsule 10 mg PO BEDTIME PRN 10/16/20 05/26/21 Unknown History omeprazole 40 mg capsule,delayed 40 mg PO DAILY 10/16/20 05/26/21 Unknown History release quetiapine 200 mg tablet (Seroquel) 100 mg PO BEDTIME 10/16/20 05/26/21 Unknown History risperidone 2 mg tablet 2 mg PO DAILY 10/16/20 05/26/21 Unknown History sertraline 100 mg tablet (Zoloft) 100 mg PO DAILY 10/16/20 05/26/21 Unknown History topiramate 25 mg sprinkle capsule 25 mg PO BID 10/16/20 05/26/21 Unknown History (Topamax) buspirone PO 2XD 04/22/22 Unknown History chlorpromazine 100 mg tablet 1 tab PO BEDTIME 04/22/22 04/22/22 Unknown History hydroxyzine pamoate 25 mg capsule mg PO BID 04/22/22 Unknown History prazosin 1 mg capsule 1 cap PO BEDTIME 04/22/22 04/22/22 Unknown History Physical Exam Vital Signs and Narrative: Vital Signs: Last Vital Signs Temp 98.0 F 04/22/22 21:32 Pulse 86 04/22/22 23:04 Resp 18 04/22/22 23:04 BP 123/103 H 04/22/22 23:04 Pulse Ox 99 04/22/22 23:04 O2 Del Method 04/22/22 23:04 BMI result Body Mass Index 41.0 Const: General: cooperative and no acute distress Orientation/consciousness: patient oriented x3 Eyes: General: appearance normal, both eyes and all related structures Resp: Effort & Inspection: normal respiratory effort Auscultation: clear to auscultation bilaterally Cardio: Rate: regular rate Rhythm: regular rhythm GI: Palpation (GI): Soft to palpation Auscultation: normal bowel sounds Skin: General skin exam: no rashes or lesions noted Neuro: General: patient oriented x3 Cognition (Neuro): normal cognition Extrem: General: Yes normal to inspection and Yes no pedal edema Results Labs 04/22/22 22:01 04/22/22 17:03 Labs: Laboratory Results - last 24 hr 04/22/22 04/22/22 04/22/22 17:03 17:03 17:03 MCV 80.5 MCH 26.0 L MCHC 32.3 RDW 15.7 Plt Count 364 MPV 11.4 Immature Gran % (Auto) 0.3 Neut % (Auto) 48.7 Lymph % (Auto) 41.7 H [place] % (Auto) 6.8 Eos % (Auto) 1.6 Baso % (Auto) 0.9 Lymph # (Auto) 5.8 H [place] # (Auto) 1.0 Eos # (Auto) 0.2 Baso # (Auto) 0.1 Abs Immat Gran (auto) 0.04 H Absolute Neuts (auto) 6.8 Absolute Nucleated RBC 0.000 Nucleated RBC % (auto) 0.0 Smear Tech's Comments VERIFIED Anion Gap 14 Estim Creat Clear Calc 107.6 Estimated GFR 60 Random Glucose 275 H Calcium 9.7 Total Bilirubin 0.3 Direct Bilirubin < 0.2 AST 13 ALT 14 Alkaline Phosphatase 87 Troponin I High Sens < 3.5 Total Protein 7.5 Albumin 4.1 Beta HCG, Quant < 2 COVID-19 (MARY BETH) COVID-19 Clin Com 04/22/22 04/22/22 17:03 22:01 MCV 80.5 MCH 26.2 L MCHC 32.6 RDW 15.7 Plt Count 390 MPV 11.0 Immature Gran % (Auto) 0.4 Neut % (Auto) 51.4 Lymph % (Auto) 39.3 [place] % (Auto) 6.6 Eos % (Auto) 1.6 Baso % (Auto) 0.7 Lymph # (Auto) 5.8 H [place] # (Auto) 1.0 Eos # (Auto) 0.2 Baso # (Auto) 0.1 Abs Immat Gran (auto) 0.06 H Absolute Neuts (auto) 7.5 Absolute Nucleated RBC 0.000 Nucleated RBC % (auto) 0.0 Smear Tech's Comments Anion Gap Estim Creat Clear Calc Estimated GFR Random Glucose Calcium Total Bilirubin Direct Bilirubin AST ALT Alkaline Phosphatase Troponin I High Sens Total Protein Albumin Beta HCG, Quant COVID-19 (MARY BETH) Negative COVID-19 Clin Com See Note Imaging Radiologist's Impressions: Impressions Chest X-Ray 04/22/22 17:45 IMPRESSION: Unremarkable examination. Abdomen/Pelvis CT 04/22/22 19:00 IMPRESSION: No acute findings to explain symptoms of abdominal pain. Hepatomegaly and hepatic steatosis. Assessment and Plan (1) Coffee ground emesis: Status: Acute (2) History of gastroesophageal reflux (GERD): Status: Acute Plan 41-year-old female with past medical history of GERD presents to the hospital with coffee-ground emesis # coffee-ground emesis - possibly secondary to underlying GERD/gastritis - hemodynamically stable, hemoglobin stable - consult or GI, recommends admission for possible EGD - pantoprazole IV b.i.d. # GERD - reports chronic GERD on omeprazole but ran out of her PPI few days ago and that is when her symptoms started - will place on pantoprazole b.i.d. # diabetes - continue home insulin - Will add low-dose sinus scale insulin, diabetic diet # hyperlipidemia - continue statin DVT prophylaxis: Early ambulation Time Spent With Patient Time: Total time managing care of this patient today ____ minutes. Quality Stroke Does the patient have a stroke diagnosis?: No VTE Prior VTE?: No VTE Risk Level:: Medical - low VTE Device Contraindication: Treatment Not Indicated VTE Drug Contraindication: Treatment Not Indicated
[2022-04-23] VITALS (8 sets, daily range): BP systolic 103–128; BP diastolic 56–87; PULSE 71–103; RESP 14–20; TEMP 36.3–37; O2SAT 94–99; BMI 40.7
--- NOTE | 2022-04-23 00:01 | PC.NURSE ---
PT to be NPO after midnight, PT aware of plan.
[2022-04-23] MEDS: 0.9 % Sodium Chloride Flush 3 ML SYRINGE IVFLUSH ×4 (01:51→21:07)
[2022-04-23] MEDS: Pantoprazole Sodium 40 MG/10 ML VIAL IVPUSH ×3 (01:51→18:05)
--- NOTE | 2022-04-23 01:52 | PC.NURSE ---
New IV placed by provider. Meds given as documented.
--- NOTE | 2022-04-23 02:33 | PC.NURSE ---
RN to RN report given. PT will be transported to room 369 by [facility]. Pt aware of plan.
[2022-04-23 06:27] LABS: MANUAL DIFF FLAG NO
[2022-04-23 06:36] LABS: Basophils Absolute Auto 0.1 X10*3/uL (0.0-0.2); Basophils Percent Auto 0.8 % (0-2); Eosinophils Absolute Auto 0.2 X10*3/uL (0.0-0.4); Eosinophils Percent Auto 1.8 % (0-4); Hematocrit 34.9 % (37.0-47.0); Hemoglobin 11.1 g/dl (12.0-16.0); Imm Gran Abs Auto 0.06 X10*3/uL (0.00-0.03); Imm Gran Pct Auto 0.5 % (0.0-0.4); Lymphocytes Absolute Auto 4.7 X10*3/uL (1.2-4.9); Lymphocytes Percent Auto 35.8 % (20-40); Mean Corpuscular HGB Conc 31.8 g/dl (31.0-35.0); Mean Corpuscular Hemoglobin 25.9 pg (27.0-33.0); Mean Corpuscular Volume 81.4 fL (80.0-98.0); Mean Platelet Volume 11.1 fL (9.4-12.3); Monocytes Percent Auto 7.6 % (2-11); Neutrophils Absolute Auto 7.1 x10*3/uL (2.0-8.3); Neutrophils Percent Auto 53.5 % (45-73); Platelet Count 394 X10*3/uL (160-400); Red Blood Count 4.29 X10*6/uL (4.20-5.50); Red Cell Distribution Width 15.8 % (11.0-16.0); White Blood Count 13.2 X10*3/uL (4.8-10.8)
[2022-04-23 07:15] LABS: Anion Gap 15 (12-20); Blood Urea Nitrogen 12 mg/dL (9-16); Carbon Dioxide 24 mmol/L (22-29); Chloride 102 mmol/L (96-108); Estimated Glomerular Filt Rate > 60; Glucose Random 271 mg/dL (60-115); Potassium 4.4 mmol/L (3.3-5.1); Sodium 137 mmol/L (135-145)
[2022-04-23 07:32] LABS: Glucose, Whole Blood 269 mg/dL (60-115)
--- NOTE | 2022-04-23 08:47 | MHC.CM.PN ---
Addendum entered by Yana Rios 04/23/22 10:31: PER MD ROUNDS, PT WILL HAVE AN EGD TODAY AND POSSIBLY DC TOMORROW Original Note: PT REPORTS SHE LIVES WITH ROOMMATES AND IS FULLY INDEPENDENT SHE REPORTS SHE HAS NO SERVICES SHE IS SUPPOSED TO USE A CPAP MACHINE BUT LOST IT DURING MOVE PT DECLINES TO COMPLETE A HCP SHE IS NOT COVID [facility] PCP: SHARATH BERMUDEZ AT [facility] NOTICE DELIVERED CURRENT DC PLAN IS HOME WITH NO SERVICES PT WILL ARRANGE TRANSPORT
--- NOTE | 2022-04-23 09:12 | PHA.MEDREC ---
Pharmacy Consult ? Medication Reconciliation Pharmacy has completed the medication reconciliation. Patient confirmed medications. Patient is not adherent to medications. Reports taking medication that have not been filled recently. Spoke with [place] and they reported all medications filled in the recently. Lispro has not been filled since november. Atorvastatin, Trulicity, Vitamin D2, ripseridone and topiramte have not been filled recently but patient was able to confirm doses. patient did report she is supose to take topiramate BID but only takes at bedtime. Michelle Calderon, PharmD
--- NOTE | 2022-04-23 10:53 | HO.PM.IMPN ---
Subjective Subjective Date of Service: 04/23/22 Interval History: No reported vomiting or Hematmomesis overnight Hb stable Patient feels ok Plan for EGD this afternoon Review of Systems Review of Systems: Yes all other systems are reviewed and are negative Physical Exam Vital Signs: Vital Signs: Last Vital Signs Temp 98.0 F 04/23/22 07:57 Pulse 84 04/23/22 07:57 Resp 20 04/23/22 07:57 BP 123/64 04/23/22 07:57 Pulse Ox 94 04/23/22 07:57 O2 Del Method 04/23/22 07:57 BMI result Body Mass Index 40.7 Const: Other: Constitutional : Awake, interactive, obese, not in distress Neck : Normal inspection, Supple Cardiovascular : RRR, no JVP, no lower extremity edema Respiratory : good bilateral air entry, no crackles, wheezes or rhonchi Gastrointestinal: soft, lax, Normal bowel sounds, Non tender Skin : Warm, Dry Neurological : Alert & oriented x3, No focal deficit Objective Data Active Medications Acetaminophen (Acetaminophen 325 Mg Tablet) 650 mg PO Q6H PRN PRN Reason: Pain, Mild (Pain Scale 1-3) Atorvastatin Calcium (Atorvastatin Calcium 40 Mg Tablet) 40 mg PO BEDTIME YARED Buspirone HCl (Buspirone Hcl 5 Mg Tablet) 15 mg PO BID YARED Chlorpromazine HCl (Chlorpromazine Hcl 100 Mg Tablet) 100 mg PO BEDTIME YARED Dextrose (Dextrose 50 % 25 Gm/50 Ml Syringe) 25 gm IVPUSH Q15M PRN; Protocol PRN Reason: per Hypoglycemia Standing Ord. Docusate Sodium (Docusate Sodium 100 Mg Capsule) 100 mg PO DAILY PRN PRN Reason: Constipation Gabapentin (Gabapentin 100 Mg Capsule) 100 mg PO TID YARED Glucose (Glucose Gel 15 Gm Gel..Gram.) 15 gm PO Q15M PRN; Protocol PRN Reason: per Hypoglycemia Standing Ord. Hydroxyzine HCl (Hydroxyzine Hcl 25 Mg Tablet) 25 mg PO BID PRN PRN Reason: Anxiety Insulin Glargine (Insulin Glargine,Hum.Rec.Anlog 100 Unit/Ml 10 Ml Vial) 45 unit SUBCUT BEDTIME YARED Insulin Human Lispro (Insulin Lispro 100 Unit/Ml 3 Ml Vial) 0 unit SUBCUT QIDACHS COUNTS INCLUDE 234 BEDS AT THE [facility]; Protocol Last Admin: 04/23/22 07:37 Dose: Not Given Documented By: RUDDY Non-Admin Reason: NPO Metformin HCl (Metformin Hcl Er 500 Mg Tab.Er.24h) 500 mg PO DAILY@1730 COUNTS INCLUDE 234 BEDS AT THE [facility] Ondansetron HCl (Ondansetron Hcl 4 Mg/2 Ml Vial) 4 mg IVPUSH Q8H PRN PRN Reason: Nausea and Vomiting Pantoprazole Sodium (Pantoprazole Sodium 40 Mg/10 Ml Vial) 40 mg IVPUSH BID@0630,1630 COUNTS INCLUDE 234 BEDS AT THE [facility] Last Admin: 04/23/22 05:40 Dose: 40 mg Documented By: PRESTON Pharmacy Consult (Consult Rx Perform Med Rec) 1 each MISCELLANE ONCE PRN PRN Reason: Consult order Prazosin HCl (Prazosin Hcl 1 Mg Capsule) 1 mg PO BEDTIME COUNTS INCLUDE 234 BEDS AT THE [facility]; Protocol Quetiapine Fumarate (Quetiapine Fumarate 100 Mg Tablet) 100 mg PO BEDTIME COUNTS INCLUDE 234 BEDS AT THE [facility] Risperidone (Risperidone 2 Mg Tablet) 2 mg PO DAILY COUNTS INCLUDE 234 BEDS AT THE [facility] Sertraline HCl (Sertraline Hcl 100 Mg Tablet) 100 mg PO DAILY COUNTS INCLUDE 234 BEDS AT THE [facility] Sodium Chloride (0.9 % Sodium Chloride Flush 3 Ml Syringe) 3 ml IVFLUSH QSHIFT COUNTS INCLUDE 234 BEDS AT THE [facility] Last Admin: 04/23/22 03:03 Dose: 3 ml Documented By: PRESTON Topiramate (Topiramate 25 Mg Tablet) 25 mg PO BEDTIME COUNTS INCLUDE 234 BEDS AT THE [facility] Labs 04/23/22 05:47 04/23/22 05:47 Labs: Laboratory Results - last 24 hr 04/22/22 04/22/22 04/22/22 17:03 17:03 17:03 MCV 80.5 MCH 26.0 L MCHC 32.3 RDW 15.7 Plt Count 364 MPV 11.4 Immature Gran % (Auto) 0.3 Neut % (Auto) 48.7 Lymph % (Auto) 41.7 H [place] % (Auto) 6.8 Eos % (Auto) 1.6 Baso % (Auto) 0.9 Lymph # (Auto) 5.8 H [place] # (Auto) 1.0 Eos # (Auto) 0.2 Baso # (Auto) 0.1 Abs Immat Gran (auto) 0.04 H Absolute Neuts (auto) 6.8 Absolute Nucleated RBC 0.000 Nucleated RBC % (auto) 0.0 Smear Tech's Comments VERIFIED Smear Path Review Cancelled Anion Gap 14 Estim Creat Clear Calc 107.6 Estimated GFR 60 POC Glucose Random Glucose 275 H Calcium 9.7 Total Bilirubin 0.3 Direct Bilirubin < 0.2 AST 13 ALT 14 Alkaline Phosphatase 87 Troponin I High Sens < 3.5 Total Protein 7.5 Albumin 4.1 Beta HCG, Quant < 2 COVID-19 (MARY BETH) COVID-19 Clin Com 04/22/22 04/22/22 04/23/22 17:03 22:01 05:47 MCV 80.5 81.4 MCH 26.2 L 25.9 L MCHC 32.6 31.8 RDW 15.7 15.8 Plt Count 390 394 MPV 11.0 11.1 Immature Gran % (Auto) 0.4 0.5 H Neut % (Auto) 51.4 53.5 Lymph % (Auto) 39.3 35.8 [place] % (Auto) 6.6 7.6 Eos % (Auto) 1.6 1.8 Baso % (Auto) 0.7 0.8 Lymph # (Auto) 5.8 H 4.7 [place] # (Auto) 1.0 1.0 Eos # (Auto) 0.2 0.2 Baso # (Auto) 0.1 0.1 Abs Immat Gran (auto) 0.06 H 0.06 H Absolute Neuts (auto) 7.5 7.1 Absolute Nucleated RBC 0.000 0.000 Nucleated RBC % (auto) 0.0 0.0 Smear Tech's Comments Smear Path Review Anion Gap Estim Creat Clear Calc Estimated GFR POC Glucose Random Glucose Calcium Total Bilirubin Direct Bilirubin AST ALT Alkaline Phosphatase Troponin I High Sens Total Protein Albumin Beta HCG, Quant COVID-19 ([facility] BETH) Negative COVID-19 Clin Com See Note 04/23/22 04/23/22 05:47 07:13 MCV MCH MCHC RDW Plt Count MPV Immature Gran % (Auto) Neut % (Auto) Lymph % (Auto) [place] % (Auto) Eos % (Auto) Baso % (Auto) Lymph # (Auto) [place] # (Auto) Eos # (Auto) Baso # (Auto) Abs Immat Gran (auto) Absolute Neuts (auto) Absolute Nucleated RBC Nucleated RBC % (auto) Smear Tech's Comments Smear Path Review Anion Gap 15 Estim Creat Clear Calc 115.0 Estimated GFR > 60 POC Glucose 269 H Random Glucose 271 H Calcium 9.0 D Total Bilirubin Direct Bilirubin AST ALT Alkaline Phosphatase Troponin I High Sens Total Protein Albumin Beta HCG, Quant COVID-19 ([facility] BETH) COVID-19 Clin Com Assessment and Plan (1) Coffee ground emesis: Status: Acute (2) History of gastroesophageal reflux (GERD): Status: Acute Plan 41-year-old female with past medical history of GERD presents to the hospital with coffee-ground emesis # coffee-ground emesis likely secondary to underlying GERD/gastritis hemoglobin stable GI to do EGD continue pantoprazole IV b.i.d. Monitor H&H # GERD on pantoprazole b.i.d. # diabetes Lantus insulin low-dose sinus scale insulin, diabetic diet # hyperlipidemia continue statin DVT prophylaxis: Early ambulation Time Spent With Patient Time: Total time managing care of this patient today ____ minutes. Quality Stroke Does the patient have a stroke diagnosis?: No VTE Prior VTE?: No VTE Risk Level:: Medical - low VTE Device Contraindication: Treatment Not Indicated VTE Drug Contraindication: Treatment Not Indicated
[2022-04-23 11:53] LABS: Glucose, Whole Blood 221 mg/dL (60-115)
--- NOTE | 2022-04-23 12:11 | PM.GICN ---
History of Present Illness Data of Consult Service Date: 04/23/22 Requesting physician: Gustavo Renee Primary Care Provider: [facility] Reason for consult: UGI bleeding 41 YF with type 2 diabetes, hyperlipidemia, hypertension, obesity, history of substance abuse, vitamin-D deficiency, seen at [facility] on 04/22/22 with vomiting.? Patient has severe GERD and she started having nausea and vomting a few days ago, Pt was prescribed omeprazole daily for GERD and ran out of her omeprazole few days ago and has been having coffee-ground emesis since.? She reports burning sensation in the chest, worse with eating.? Reports no difficulty swallowing but every time she eats she feels that food has a hard time going down and he feels scratchy in her chest like something is blocking.? She describes the chest pain as sharp, worse with eating. Patient denies any headache, no dizziness, no change in vision, no palpitations, reports discomfort in the lower abdomen, but denies any urinary symptoms, denies any diarrhea or constipation.? On arrival to the ED patient hemodynamically stable with no significant abnormal vitals Labs are significant for WBC count of 13.9, hemoglobin of 11.6 which is around her baseline, hematocrit 35.9, labs otherwise unremarkable, Abdomen pelvic CT shows no acute findings Chest x-ray negative Review of Systems Review of Systems: Yes all other systems are reviewed and are negative [facility] Past Medical History Medical History Asthma Diabetes Diabetes type 2, uncontrolled History of gastroesophageal reflux (GERD) Hyperlipidemia LDL goal <100 Hypertension Obesity due to excess calories Substance abuse Type 2 diabetes mellitus with chronic kidney disease Vitamin D deficiency Family History Family History Mother Diabetes Maternal Grandmother Diabetes Maternal Aunt Diabetes Hypertension Father No problems noted. Surgical History Surgical History Hx of section Hx of splenectomy Social History Social History Household Members: Other Household Members Other:: roommate Housing Other:: Hose for woman Do you presently have visiting nurse or other home services: No Alcohol intake: never Patient Tobacco Use Status: Current everyday Tobacco user Cigarettes Per Day: 6 Years Smoked: 30 Second Hand Smoke Exposure: Yes Advance Directives: No Advance Directives Information Provided: Yes service: No Current occupational status: unemployed Meds Allergies Allergy/AdvReac Type Severity Reaction Status Date / Time ibuprofen [From Motrin] Allergy Anaphylaxis Verified 04/22/22 23:07 morphine Allergy Hives Verified 04/22/22 23:07 Active Medications: Current Medications Acetaminophen (Acetaminophen 325 Mg Tablet) 650 mg PO Q6H PRN PRN Reason: Pain, Mild (Pain Scale 1-3) Atorvastatin Calcium (Atorvastatin Calcium 40 Mg Tablet) 40 mg PO BEDTIME [facility] Buspirone HCl (Buspirone Hcl 5 Mg Tablet) 15 mg PO BID [facility] Chlorpromazine HCl (Chlorpromazine Hcl 100 Mg Tablet) 100 mg PO BEDTIME [facility] Dextrose (Dextrose 50 % 25 Gm/50 Ml Syringe) 25 gm IVPUSH Q15M PRN; Protocol PRN Reason: per Hypoglycemia Standing Ord. Docusate Sodium (Docusate Sodium 100 Mg Capsule) 100 mg PO DAILY PRN PRN Reason: Constipation Gabapentin (Gabapentin 100 Mg Capsule) 100 mg PO TID [facility] Glucose (Glucose Gel 15 Gm Gel..Gram.) 15 gm PO Q15M PRN; Protocol PRN Reason: per Hypoglycemia Standing Ord. Hydroxyzine HCl (Hydroxyzine Hcl 25 Mg Tablet) 25 mg PO BID PRN PRN Reason: Anxiety Insulin Glargine (Insulin Glargine,Hum.Rec.Anlog 100 Unit/Ml 10 Ml Vial) 45 unit SUBCUT BEDTIME [facility] Insulin Human Lispro (Insulin Lispro 100 Unit/Ml 3 Ml Vial) 0 unit SUBCUT QIDACHS [facility]; Protocol Last Admin: 04/23/22 12:05 Dose: Not Given Metformin HCl (Metformin Hcl Er 500 Mg Tab.Er.24h) 500 mg PO DAILY@1730 [facility] Ondansetron HCl (Ondansetron Hcl 4 Mg/2 Ml Vial) 4 mg IVPUSH Q8H PRN PRN Reason: Nausea and Vomiting Pantoprazole Sodium (Pantoprazole Sodium 40 Mg/10 Ml Vial) 40 mg IVPUSH BID@0630,1630 [facility] Last Admin: 04/23/22 05:40 Dose: 40 mg Pharmacy Consult (Consult Rx Perform Med Rec) 1 each MISCELLANE ONCE PRN PRN Reason: Consult order Prazosin HCl (Prazosin Hcl 1 Mg Capsule) 1 mg PO BEDTIME [facility]; Protocol Quetiapine Fumarate (Quetiapine Fumarate 100 Mg Tablet) 100 mg PO BEDTIME [facility] Risperidone (Risperidone 2 Mg Tablet) 2 mg PO DAILY [facility] Sertraline HCl (Sertraline Hcl 100 Mg Tablet) 100 mg PO DAILY [facility] Sodium Chloride (0.9 % Sodium Chloride Flush 3 Ml Syringe) 3 ml IVFLUSH QSHIFT [facility] Last Admin: 04/23/22 03:03 Dose: 3 ml Topiramate (Topiramate 25 Mg Tablet) 25 mg PO BEDTIME [facility] Home Medications Medication Instructions Recorded Confirmed Last Taken Type ergocalciferol (vitamin D2) 1,250 1,250 mcg PO QWEEK 10/16/20 04/23/22 Unknown History mcg (50,000 unit) capsule gabapentin 100 mg capsule 100 mg PO TID 10/16/20 04/23/22 Unknown History melatonin 10 mg capsule 10 mg PO BEDTIME PRN Insomnia 10/16/20 04/23/22 Unknown History risperidone 2 mg tablet 2 mg PO DAILY 10/16/20 04/23/22 Unknown History sertraline 100 mg tablet (Zoloft) 100 mg PO DAILY 10/16/20 04/23/22 Unknown History topiramate 25 mg sprinkle capsule 25 mg PO BEDTIME 10/16/20 04/23/22 Unknown History (Topamax) chlorpromazine 100 mg tablet 1 tab PO BEDTIME 04/22/22 04/23/22 Unknown History hydroxyzine pamoate 25 mg capsule 25 mg PO BID PRN Anxiety 04/22/22 04/23/22 Unknown History prazosin 1 mg capsule 1 cap PO BEDTIME 04/22/22 04/23/22 Unknown History buspirone 15 mg tablet 15 mg PO BID 04/23/22 04/23/22 Unknown History dulaglutide 0.75 mg/0.5 mL 0.75 mg subcut SALAZAR 04/23/22 04/23/22 Unknown History subcutaneous pen injector (Trulicity) insulin degludec 200 unit/mL (3 56 unit subcut BEDTIME 04/23/22 04/23/22 Unknown History mL) subcutaneous pen (Tresiba FlexTouch U-200 insulin) insulin lispro 100 unit/mL 0 sliding scale dose subcut QIDACHS 04/23/22 04/23/22 Unknown History subcutaneous pen (Humalog KwikPen (U-100) Insulin) metformin 500 mg tablet,extended 500 mg PO DAILY@1730 04/23/22 04/23/22 Unknown History release 24hr pantoprazole 40 mg tablet,delayed 40 mg PO DAILY 04/23/22 04/23/22 Unknown History release quetiapine 100 mg tablet 100 mg PO BEDTIME 04/23/22 04/23/22 Unknown History Physical Exam Vital Signs: Vital Signs: Last Vital Signs Temp 98.0 F 04/23/22 07:57 Pulse 84 04/23/22 07:57 Resp 20 04/23/22 07:57 BP 123/64 04/23/22 07:57 Pulse Ox 94 04/23/22 07:57 O2 Del Method 04/23/22 07:57 BMI result Body Mass Index 40.7 Const: General: healthy appearing and no acute distress Nutritional Appearance: obese Orientation/consciousness: patient oriented x3 Limitations: no limitations HEENT: Head: Yes normal to inspection Ears: hearing grossly normal bilaterally Eyes: Sclerae: sclerae normal Pupils: Equal, round and reactive pupils present Neck: Neck: Yes normal visual inspection Chest: Chest palpation & inspection: normal inspection of the chest Resp: Effort & Inspection: normal respiratory effort Auscultation: clear to auscultation bilaterally Cardio: Palpation: normal PMI Rate: regular rate Rhythm: regular rhythm Heart sounds: S1 normal heart sound present, S2 normal heart sound present and no murmurs GI: Palpation (GI): Soft to palpation, nontender and No hepatosplenomegaly present Auscultation: normal bowel sounds Rectal Exam - Female: deferred Skin: General skin exam: no rashes or lesions noted Neuro: General: patient oriented x3, gait normal and moves all extremities Cranial nerves: Yes Equal, round and reactive pupils present Psych: Appearance: grossly normal Mental Status: mental status grossly normal Results Labs 04/23/22 05:47 04/23/22 05:47 Labs: Short CBC 04/22/22 04/22/22 04/23/22 Range/Units 17:03 22:01 05:47 WBC 13.9 H 14.6 H 13.2 H (4.8-10.8) X10*3/uL Hgb 11.6 L 11.7 L 11.1 L (12.0-16.0) g/dl Hct 35.9 L 35.9 L 34.9 L (37.0-47.0) % Plt Count 364 390 394 (160-400) X10*3/uL BMP 04/22/22 04/23/22 17:03 05:47 Sodium 137 137 Potassium 3.9 4.4 Chloride 101 102 Carbon Dioxide 26 24 BUN 11 12 Creatinine 1.03 0.96 Calcium 9.7 9.0 D Liver Function 04/22/22 Range/Units 17:03 Total Bilirubin 0.3 (0.0-1.0) mg/dL Direct Bilirubin < 0.2 (0.0-0.5) mg/dL AST 13 (5-31) U/L ALT 14 (0-31) U/L Alkaline Phosphatase 87 (39-117) U/L Albumin 4.1 (3.5-5.0) g/dL Assessment and Plan (1) History of gastroesophageal reflux (GERD): Status: Inactive (2) Coffee ground emesis: Status: Resolved Plan 41 YF with type 2 diabetes, hyperlipidemia, hypertension, obesity, history of substance abuse, vitamin-D deficiency, admitted with nausea, vomiting and coffee ground emesis. Source of UGI bleeding can be PUD, erosive esophagitis, MW tear or UGI AVM RECOMMENDATIONS: 1. Agree with PPI 2. Proceed with EGD today - procedure and potential complications including bleeding, perforation, reaction to anesthetic and aspiration pneumonia were reviewed with the patient. Time Spent With Patient Time: Total time managing care of this patient today ____ minutes. Procedures Date of Service Date of Service: 04/23/22
--- NOTE | 2022-04-23 16:08 | HO.ANESPROP2 ---
[facility] Active Problems Active Problems: All Active Problems (Updated 04/23/22 @ 06:00 by Gustavo Renee MD) History of gastroesophageal reflux (GERD) (Acute) Coffee ground emesis (Acute) Vomiting (Acute) Substance abuse (Acute) Vitamin D deficiency (Acute) Obesity due to excess calories (Acute) Type 2 diabetes mellitus with chronic kidney disease (Acute) Diabetes type 2, uncontrolled (Acute) Hyperlipidemia LDL goal <100 (Acute) Hypertension (Acute) Asthma (Acute) Diabetes (Acute) Past Medical History Medical History Asthma Diabetes Diabetes type 2, uncontrolled Hyperlipidemia LDL goal <100 Hypertension Obesity due to excess calories Substance abuse Type 2 diabetes mellitus with chronic kidney disease Vitamin D deficiency Functional capacity: independent ambulation Patient : No Family History Family History Mother Diabetes Maternal Grandmother Diabetes Maternal Aunt Diabetes Hypertension Father No problems noted. Family history of problems with anesthesia: No Surgical History Surgical History Hx of section Hx of splenectomy History of Problems with Anesthesia: No Social History Social History Household Members: Other Household Members Other:: roommate Housing Other:: Hose for woman Do you presently have visiting nurse or other home services: No Alcohol intake: never Patient Tobacco Use Status: Current everyday Tobacco user Cigarettes Per Day: 6 Years Smoked: 30 Smoked in Last 30 Days: Yes Patient Interested in Nicotine Replacement: No Patient Given Instructions on How to Stop Smoking: No Second Hand Smoke Exposure: Yes Use of substances other than those prescribed or required for medical reasons: No Currently Displaying Signs/Symptoms of Drug Intoxication Withdrawal: No Any prior treatment program specific to substance use: No Have you been hit, kicked, punched, or otherwise hurt by someone within the past year? If so, by whom?: No Do you feel safe in your current relationship?: No Current Relationship Is there a partner from a previous relationship who is making you feel unsafe now?: No Are you made to feel afraid or neglected: No Are you DNR?: No Advance Directives: No Advance Directives Information Provided: Yes Do you have thoughts of harming others: None Do you have a plan to hurt others: No Plan Recently lost weight without trying: No How much weight loss: Not applicable Eating poorly because of decreased appetite: No Nutrition screen score: 0 Nutrition Risks: No Nutritional Risk Patient : No : No Poor oral hygiene: No service: No Current occupational status: unemployed Meds Allergies Allergy/AdvReac Type Severity Reaction Status Date / Time ibuprofen [From Motrin] Allergy Anaphylaxis Verified 04/22/22 23:07 morphine Allergy Hives Verified 04/22/22 23:07 Active Medications: Current Medications Acetaminophen (Acetaminophen 325 Mg Tablet) 650 mg PO Q6H PRN PRN Reason: Pain, Mild (Pain Scale 1-3) Atorvastatin Calcium (Atorvastatin Calcium 40 Mg Tablet) 40 mg PO BEDTIME [facility] Buspirone HCl (Buspirone Hcl 5 Mg Tablet) 15 mg PO BID [facility] Chlorpromazine HCl (Chlorpromazine Hcl 100 Mg Tablet) 100 mg PO BEDTIME [facility] Dextrose (Dextrose 50 % 25 Gm/50 Ml Syringe) 25 gm IVPUSH Q15M PRN; Protocol PRN Reason: per Hypoglycemia Standing Ord. Docusate Sodium (Docusate Sodium 100 Mg Capsule) 100 mg PO DAILY PRN PRN Reason: Constipation Gabapentin (Gabapentin 100 Mg Capsule) 100 mg PO TID [facility] Glucose (Glucose Gel 15 Gm Gel..Gram.) 15 gm PO Q15M PRN; Protocol PRN Reason: per Hypoglycemia Standing Ord. Hydroxyzine HCl (Hydroxyzine Hcl 25 Mg Tablet) 25 mg PO BID PRN PRN Reason: Anxiety Insulin Glargine (Insulin Glargine,Hum.Rec.Anlog 100 Unit/Ml 10 Ml Vial) 45 unit SUBCUT BEDTIME [facility] Insulin Human Lispro (Insulin Lispro 100 Unit/Ml 3 Ml Vial) 0 unit SUBCUT QIDACHS [facility]; Protocol Last Admin: 04/23/22 12:05 Dose: Not Given Metformin HCl (Metformin Hcl Er 500 Mg Tab.Er.24h) 500 mg PO DAILY@1730 [facility] Ondansetron HCl (Ondansetron Hcl 4 Mg/2 Ml Vial) 4 mg IVPUSH Q8H PRN PRN Reason: Nausea and Vomiting Pantoprazole Sodium (Pantoprazole Sodium 40 Mg/10 Ml Vial) 40 mg IVPUSH BID@0630,1630 [facility] Last Admin: 04/23/22 05:40 Dose: 40 mg Pharmacy Consult (Consult Rx Perform Med Rec) 1 each MISCELLANE ONCE PRN PRN Reason: Consult order Prazosin HCl (Prazosin Hcl 1 Mg Capsule) 1 mg PO BEDTIME [facility]; Protocol Quetiapine Fumarate (Quetiapine Fumarate 100 Mg Tablet) 100 mg PO BEDTIME [facility] Risperidone (Risperidone 2 Mg Tablet) 2 mg PO DAILY [facility] Sertraline HCl (Sertraline Hcl 100 Mg Tablet) 100 mg PO DAILY [facility] Sodium Chloride (0.9 % Sodium Chloride Flush 3 Ml Syringe) 3 ml IVFLUSH QSHIFT [facility] Last Admin: 04/23/22 03:03 Dose: 3 ml Topiramate (Topiramate 25 Mg Tablet) 25 mg PO BEDTIME [facility] Home Medications Medication Instructions Recorded Confirmed Last Taken Type ergocalciferol (vitamin D2) 1,250 1,250 mcg PO QWEEK 10/16/20 04/23/22 Unknown History mcg (50,000 unit) capsule gabapentin 100 mg capsule 100 mg PO TID 10/16/20 04/23/22 Unknown History melatonin 10 mg capsule 10 mg PO BEDTIME PRN Insomnia 10/16/20 04/23/22 Unknown History risperidone 2 mg tablet 2 mg PO DAILY 10/16/20 04/23/22 Unknown History sertraline 100 mg tablet (Zoloft) 100 mg PO DAILY 10/16/20 04/23/22 Unknown History topiramate 25 mg sprinkle capsule 25 mg PO BEDTIME 10/16/20 04/23/22 Unknown History (Topamax) chlorpromazine 100 mg tablet 1 tab PO BEDTIME 04/22/22 04/23/22 Unknown History hydroxyzine pamoate 25 mg capsule 25 mg PO BID PRN Anxiety 04/22/22 04/23/22 Unknown History prazosin 1 mg capsule 1 cap PO BEDTIME 04/22/22 04/23/22 Unknown History buspirone 15 mg tablet 15 mg PO BID 04/23/22 04/23/22 Unknown History dulaglutide 0.75 mg/0.5 mL 0.75 mg subcut SALAZAR 04/23/22 04/23/22 Unknown History subcutaneous pen injector (Trulicity) insulin degludec 200 unit/mL (3 56 unit subcut BEDTIME 04/23/22 04/23/22 Unknown History mL) subcutaneous pen (Tresiba FlexTouch U-200 insulin) insulin lispro 100 unit/mL 0 sliding scale dose subcut QIDACHS 04/23/22 04/23/22 Unknown History subcutaneous pen (Humalog KwikPen (U-100) Insulin) metformin 500 mg tablet,extended 500 mg PO DAILY@1730 04/23/22 04/23/22 Unknown History release 24hr pantoprazole 40 mg tablet,delayed 40 mg PO DAILY 04/23/22 04/23/22 Unknown History release quetiapine 100 mg tablet 100 mg PO BEDTIME 04/23/22 04/23/22 Unknown History Exam Exam Date and Time: April 23, 2022 1608 Height,Weight and Vital Signs: Height 5 ft 10 in Weight 128.8 kg Last Vital Signs Temp 97.3 F 04/23/22 14:56 Pulse 81 04/23/22 14:56 Resp 16 04/23/22 14:56 BP 128/83 04/23/22 14:56 Pulse Ox 97 04/23/22 14:56 O2 Del Method 04/23/22 14:56 Pertinent Lab Results Pertinent Lab Results: Laboratory Tests 04/22/22 04/22/22 04/22/22 17:03 17:03 17:03 WBC 13.9 H RBC 4.46 Hgb 11.6 L Hct 35.9 L MCV 80.5 MCH 26.0 L MCHC 32.3 RDW 15.7 Plt Count 364 MPV 11.4 Immature Gran % (Auto) 0.3 Neut % (Auto) 48.7 Lymph % (Auto) 41.7 H [place] % (Auto) 6.8 Eos % (Auto) 1.6 Baso % (Auto) 0.9 Lymph # (Auto) 5.8 H [place] # (Auto) 1.0 Eos # (Auto) 0.2 Baso # (Auto) 0.1 Abs Immat Gran (auto) 0.04 H Absolute Neuts (auto) 6.8 Absolute Nucleated RBC 0.000 Nucleated RBC % (auto) 0.0 Smear Tech's Comments VERIFIED Smear Path Review Cancelled Sodium 137 Potassium 3.9 Chloride 101 Carbon Dioxide 26 Anion Gap 14 BUN 11 Creatinine 1.03 Estim Creat Clear Calc 107.6 Estimated GFR 60 POC Glucose Random Glucose 275 H Calcium 9.7 Total Bilirubin 0.3 Direct Bilirubin < 0.2 AST 13 ALT 14 Alkaline Phosphatase 87 Troponin I High Sens < 3.5 Total Protein 7.5 Albumin 4.1 Beta HCG, Quant < 2 COVID-19 ([facility]) COVID-19 Clin Com 04/22/22 04/22/22 04/23/22 17:03 22:01 05:47 WBC 14.6 H 13.2 H RBC 4.46 4.29 Hgb 11.7 L 11.1 L Hct 35.9 L 34.9 L MCV 80.5 81.4 MCH 26.2 L 25.9 L MCHC 32.6 31.8 RDW 15.7 15.8 Plt Count 390 394 MPV 11.0 11.1 Immature Gran % (Auto) 0.4 0.5 H Neut % (Auto) 51.4 53.5 Lymph % (Auto) 39.3 35.8 [place] % (Auto) 6.6 7.6 Eos % (Auto) 1.6 1.8 Baso % (Auto) 0.7 0.8 Lymph # (Auto) 5.8 H 4.7 [place] # (Auto) 1.0 1.0 Eos # (Auto) 0.2 0.2 Baso # (Auto) 0.1 0.1 Abs Immat Gran (auto) 0.06 H 0.06 H Absolute Neuts (auto) 7.5 7.1 Absolute Nucleated RBC 0.000 0.000 Nucleated RBC % (auto) 0.0 0.0 Smear Tech's Comments Smear Path Review Sodium Potassium Chloride Carbon Dioxide Anion Gap BUN Creatinine Estim Creat Clear Calc Estimated GFR POC Glucose Random Glucose Calcium Total Bilirubin Direct Bilirubin AST ALT Alkaline Phosphatase Troponin I High Sens Total Protein Albumin Beta HCG, Quant COVID-19 ([facility]) Negative COVID-19 Clin Com See Note 04/23/22 04/23/22 04/23/22 05:47 07:13 11:38 WBC RBC Hgb Hct MCV MCH MCHC RDW Plt Count MPV Immature Gran % (Auto) Neut % (Auto) Lymph % (Auto) [place] % (Auto) Eos % (Auto) Baso % (Auto) Lymph # (Auto) [place] # (Auto) Eos # (Auto) Baso # (Auto) Abs Immat Gran (auto) Absolute Neuts (auto) Absolute Nucleated RBC Nucleated RBC % (auto) Smear Tech's Comments Smear Path Review Sodium 137 Potassium 4.4 Chloride 102 Carbon Dioxide 24 Anion Gap 15 BUN 12 Creatinine 0.96 Estim Creat Clear Calc 115.0 Estimated GFR > 60 POC Glucose 269 H 221 H Random Glucose 271 H Calcium 9.0 D Total Bilirubin Direct Bilirubin AST ALT Alkaline Phosphatase Troponin I High Sens Total Protein Albumin Beta HCG, Quant COVID-19 ([facility]) COVID-19 Clin Com Airway Mallampati Class: II TM Dist: >3cm Neck ROM: Full Heart: gRRR Lungs: CTA Assessment and Plan Final Anesthetic Review Family History of Problems with Anesthesia: No History of Problems with Anesthesia: No ASA Class: III and Emergency Final Preanesthetic Review: Meds/Allgs Chart Reviewed, Consent Obtained/Reviewed and Anes Risks/Benef Reviewed Patient Risk: Intermediate Procedure Risk: Low Anesthetic Plan Anesthetic Plan: MAC: Disposition: Standard PACU
[2022-04-23 16:13] LABS: Glucose, Whole Blood 166 mg/dL (60-115)
--- NOTE | 2022-04-23 16:42 | P.BOP_ITS ---
Brief Operative Note Date of Service: 04/23/22 Pre-op diagnosis: UGI Bleed Post-op diagnosis: other (Erosive esophagitis, Hiatal hernia, gastritis) Procedure: FLEXIBLE TRANSORAL UPPER GASTROINTESTINAL ENDOSCOPY WITH BIOPSIES Surgeon: Joselin Rodrigez MD Anesthesia: MAC Was an Pet Resort Concierge used for this Procedure?: Yes Pet Resort Concierge: Ivy Chappell Estimated blood loss (mL): 0 Condition: stable Disposition: PACU
--- NOTE | 2022-04-23 16:54 | W.PM.OPN ---
Operative Note Operative Note Date of Service: 04/23/22 Narrative: Pre-op diagnosis: UGI Bleed Post-op diagnosis:?other (Erosive esophagitis, Hiatal hernia, gastritis) Surgeon: Joselin Rodrigez MD Anesthesia:?MAC FLEXIBLE TRANSORAL UPPER GASTROINTESTINAL ENDOSCOPY WITH BIOPSIES Consent: Indications for the procedure and potential complications of bleeding, perforation, reaction to medications and missed diagnosis were discussed with the patient and informed consent was obtained. Instrument: Olympus GIF H 190 mid size upper endoscope Monitoring: Vital signs and clinical assessment, continuous EKG monitoring, Pulse oximetry, Carbon Dioxide monitoring and blood pressure monitoring were done throughout the procedure. Procedure: The patient was placed in the left lateral decubitis position and pre-procedure medications were administered and a bite block was placed. The endoscope was inserted into the mouth and advanced under direct vision to the third part of duodenum. A careful inspection was made as the upper endoscope was withdrawn including a retroflexed examination of the proximal stomach; Findings and interventions are described below. Findings: Larynx: Normal Esophagus: GE junction at 35 cms, hiatal hernia 35 to 40 cms. Grade 2 to 3 erosive esophagitis from 32 to 35 cms. Stomach: Mild gastric erythema. Biopsies were obtained. Grade 3 flap valve on retroflexed examination of the cardia. Duodenum: Normal bulb and descending duodenum Intervention: Biopsies as noted above Impression and Post Procedure Diagnosis: Endoscopy Findings: ESOPHAGUS: Hiatal hernia with erosive esophagitis STOMACH: Mild antral gastritis UGI bleeding likely related to erosive esophagitis. No blood or active bleeding seen in the UGI tract during EGD. Plan: Ok to discharge home on Omeprazole 20 mg twice daily. Await pathology results Patient to schedule a FU appt in the GI Clinic with SHAMIR Decker NP or Saadia Kent FNP-BC. Repeat EGD in 3-4 months to confirm esophagitis has healed and to rule out Robles's Above findings were reviewed with the patient and GERD and Hiatal hernia handouts were given in the discharge area
[2022-04-23 18:00] LABS: Glucose, Whole Blood 189 mg/dL (60-115)
[2022-04-23] MEDS: Insulin Lispro 100 UNIT/ML 3 ML VIAL SUBCUT ×2 (18:05→20:03)
[2022-04-23] MEDS: metFORMIN HCl ER 500 MG TAB.ER.24H PO (18:05)
[2022-04-23 19:35] LABS: Glucose, Whole Blood 275 mg/dL (60-115)
[2022-04-23] MEDS: busPIRone HCl 5 MG TABLET 15 MG PO (20:02)
[2022-04-23] MEDS: Atorvastatin Calcium 40 MG TABLET PO (20:02)
[2022-04-23] MEDS: Gabapentin 100 MG CAPSULE PO (20:02)
[2022-04-23] MEDS: QUEtiapine Fumarate 100 MG TABLET PO (20:02)
[2022-04-23] MEDS: Topiramate 25 MG TABLET PO (20:02)
[2022-04-23] MEDS: Prazosin HCL 1 MG CAPSULE PO (20:02)
[2022-04-23] MEDS: chlorproMAZINE HCl 100 MG TABLET PO (20:02)
[2022-04-23] MEDS: Insulin Glargine,Hum.rec.anlog 100 UNIT/ML 10 ML VIAL 45 UNIT SUBCUT (20:03)
[2022-04-24] MEDS: Pantoprazole Sodium 40 MG/10 ML VIAL IVPUSH (05:43)
[2022-04-24 07:21] LABS: Hematocrit 35.2 % (37.0-47.0); Hemoglobin 11.2 g/dl (12.0-16.0); Mean Corpuscular HGB Conc 31.8 g/dl (31.0-35.0); Mean Corpuscular Hemoglobin 25.8 pg (27.0-33.0); Mean Corpuscular Volume 81.1 fL (80.0-98.0); Mean Platelet Volume 11.5 fL (9.4-12.3); Platelet Count 371 X10*3/uL (160-400); Red Blood Count 4.34 X10*6/uL (4.20-5.50); Red Cell Distribution Width 15.9 % (11.0-16.0); White Blood Count 14.2 X10*3/uL (4.8-10.8)
[2022-04-24 07:23] VITALS: BP 134/58; PULSE 84; RESP 18; TEMP 36.4; O2SAT 91
[2022-04-24 08:04] LABS: Glucose, Whole Blood 202 mg/dL (60-115)
[2022-04-24] MEDS: busPIRone HCl 5 MG TABLET 15 MG PO (08:19)
[2022-04-24] MEDS: Gabapentin 100 MG CAPSULE PO (08:19)
[2022-04-24] MEDS: Insulin Lispro 100 UNIT/ML 3 ML VIAL SUBCUT ×2 (08:19→11:55)
[2022-04-24] MEDS: Sertraline HCL 100 MG TABLET PO (08:19)
[2022-04-24] MEDS: 0.9 % Sodium Chloride Flush 3 ML SYRINGE IVFLUSH (08:19)
[2022-04-24] MEDS: risperiDONE 2 MG TABLET PO (08:19)
--- NOTE | 2022-04-24 11:32 | PM.DS ---
DS: Providers Provider Date of Service: 04/24/22 Date of admission: 04/22/22 23:52 Primary care physician: [facility] Consults: 04/22/22 23:00 Consult to Gastroenterology Stat Consulting Provider: Joselin Rodrigez Reason for consultation: ?UGIB DS: Diagnosis Discharge Diagnosis (1) History of gastroesophageal reflux (GERD): Status: Acute (2) Coffee ground emesis: Status: Acute DS: Summary Hospital Course Hospital Course: Admission note HPI This is a 41-year-old female with past medical history of type 2 diabetes, hyperlipidemia, hypertension, obesity, history of substance abuse, vitamin-D deficiency, presents to the hospital with complaints of vomiting.? Patient reports that her symptoms started few days ago, she has history of severe GERD, takes omeprazole daily, reports that she ran out of her omeprazole few days ago, and ever since started having coffee-ground emesis.? She reports burning sensation in the chest, worse with eating.? Reports no difficulty swallowing but every time she eats she feels that food has a hard time going down and he feels scratchy in her chest like something is blocking.? She describes the chest pain as sharp, worse with eating. Patient denies any headache, no dizziness, no change in vision, no palpitations, reports discomfort in the lower abdomen, but denies any urinary symptoms, denies any diarrhea or constipation.? On arrival to the ED patient hemodynamically stable with no significant abnormal vitals Labs are significant for WBC count of 13.9, hemoglobin of 11.6 which is around her baseline, hematocrit 35.9, labs otherwise unremarkable, Abdomen pelvic CT shows no acute findings. Hospital course The patient was admitted to the hospital for evaluation of coffee-ground emesis with no notable drop in hemoglobin level. The patient did not have any further episodes since admission as she was started on IV fluid, IV pantoprazole and nausea medication with good response. Evaluated by stencil cutter machine who did an upper endoscopy showing evidence of erosive esophagitis with no active bleeding. To be discharged home on omeprazole twice daily with plan to follow-up with Gastroenterology as outpatient. Advised to lose weight and change her dietary habits. Continue omeprazole twice daily To follow-up with gastroenterology Dr. Rodrigez as needed. Time Spent with Patient Time attestation: Total time managing care of this patient today ____ minutes. Discharge coordination time: Greater than 30 minutes Quality: Safe Use of Opioids Does Pt have an Active Cancer Diagnosis on the Problem List?: No Quality: Stroke Does the patient have a stroke diagnosis?: No Physical Exam Vital Signs: Vital Signs: Last Vital Signs Temp 97.5 F 04/24/22 07:23 Pulse 84 04/24/22 07:23 Resp 18 04/24/22 07:23 BP 134/58 L 04/24/22 07:23 Pulse Ox 91 L 04/24/22 07:23 O2 Del Method 04/24/22 07:23 BMI result Body Mass Index 40.7 Const: Other: Constitutional : Awake, interactive, obese, not in distress Neck : Normal inspection, Supple Cardiovascular : RRR, no JVP, no lower extremity edema Respiratory : good bilateral air entry, no crackles, wheezes or rhonchi Gastrointestinal: soft, lax, Normal bowel sounds, Non tender Skin : Warm, Dry Neurological : Alert & oriented x3, No focal deficit DS: Data Data Completed and Pending Pending studies at discharge: Pending at discharge 04/23/22 16:54 Surgical [PTH] Routine Labs on day of discharge: Laboratory Results - last 24 hr 04/23/22 04/23/22 04/23/22 11:38 16:10 17:54 WBC RBC Hgb Hct MCV MCH MCHC RDW Plt Count MPV Absolute Nucleated RBC Nucleated RBC % (auto) POC Glucose 221 H 166 H 189 H 04/23/22 04/24/22 04/24/22 19:17 05:55 07:29 WBC 14.2 H RBC 4.34 Hgb 11.2 L Hct 35.2 L MCV 81.1 MCH 25.8 L MCHC 31.8 RDW 15.9 Plt Count 371 MPV 11.5 Absolute Nucleated RBC 0.000 Nucleated RBC % (auto) 0.0 POC Glucose [address] scan - abdomen: Radiologist's impression: ITS Impressions Chest X-Ray 04/22/22 17:45 IMPRESSION: Unremarkable examination. Abdomen/Pelvis CT 04/22/22 19:00 IMPRESSION: No acute findings to explain symptoms of abdominal pain. Hepatomegaly and hepatic steatosis. Discharge Plan Discharge Anticipated Discharge Date/Time: 04/24/22 11:28 Patient Disposition: Home, Self-Care Discharge Diagnosis: Erosive esophagitis Referrals: [facility] [Primary Care Provider] - 1 Week Discharge Medications: New omeprazole 40 mg Capsule,Delayed Release(Dr/Ec) 40 mg PO BID@0630,1630 Qty: 120 2RF Continued chlorpromazine 100 mg tablet 1 tab PO BEDTIME prazosin 1 mg capsule 1 cap PO BEDTIME hydroxyzine pamoate 25 mg capsule 25 mg PO BID PRN (Reason: Anxiety) quetiapine 100 mg Tablet 100 mg PO BEDTIME pantoprazole 40 mg Tablet,Delayed Release (Dr/Ec) 40 mg PO DAILY buspirone 15 mg Tablet 15 mg PO BID metformin 500 mg Tablet Extended Release 24hr 500 mg PO DAILY@1730 insulin degludec [Tresiba FlexTouch U-200] 200 unit/mL (3 mL) insulin pen 56 unit subcut BEDTIME insulin lispro [Humalog KwikPen Insulin] 100 unit/mL insulin pen 0 sliding scale dose subcut QIDACHS Protocol: Insulin Correction Scale Less than or equal to 110 ---- Give (units): 0 111 to 150 Give (units): 0 151 to 200 Give (units): 2 201 to 250 Give (units): 4 251 to 300 Give (units): 6 301 to 350 Give (units): 8 Greater than 350 Give (units): 10 Call MD if Blood Glucose > : 350 Trulicity 0.75 mg/0.5 mL pen injector 0.75 mg subcut SALAZAR gabapentin 100 mg capsule 100 mg PO TID ergocalciferol (vitamin D2) 1,250 mcg (50,000 unit) capsule 1,250 mcg PO QWEEK sertraline [Zoloft] 100 mg tablet 100 mg PO DAILY melatonin 10 mg capsule 10 mg PO BEDTIME PRN (Reason: Insomnia) topiramate [Topamax] 25 mg capsule, sprinkle 25 mg PO BEDTIME risperidone 2 mg tablet 2 mg PO DAILY atorvastatin 40 mg tablet 40 mg PO BEDTIME Qty: 30 11RF (DME) blood-glucose meter [FreeStyle Lite Meter] Kit See Rx Instructions .ROUTE .MEDSUPPLY Qty: 1 0RF Rx Instructions: As directed (DME) FreeStyle Lite Strips Strip See Rx Instructions .ROUTE .MEDSUPPLY Qty: 150 11RF Rx Instructions: As directed four times a day (DME) lancets [FreeStyle Lancets] 28 gauge misc See Rx Instructions .ROUTE .MEDSUPPLY Qty: 200 11RF Rx Instructions: 4 times a day Discharge Orders: Discharge Order (Routine); Ordered 04/24/22 Ordered By: Ciarra Pitts Diet: Advance to usual diet Activity on Discharge: As tolerated Stand Alone Forms: Patient Portal Discharge page Care Plan Goals: Read below Health Concerns: Read below Plan of Treatment: Read below Assessment: You were admitted to the hospital for evaluation of coffee-ground vomitus. Evaluated by stencil cutter machine who did an upper endoscopy showing evidence of erosive esophagitis. Treated with IV acid blockers with good response and no recurrence of the bleeding. Continue omeprazole twice daily To follow-up with gastroenterology Dr. Rodrigez as needed. Patient Instructions: Esophagitis (DC)
[2022-04-24 11:34] LABS: Glucose, Whole Blood 214 mg/dL (60-115)
--- NOTE | 2022-04-24 11:42 | MHC.CM.PN ---
order for home, self care. CM acknowledge.
--- NOTE | 2022-04-24 13:34 | HO.POSTANES ---
Post Anesthesia Evaluation Post Anesthesia Evaluation Vital Signs: Vital Signs Temp Pulse Resp BP Pulse Ox O2 Del Method 04/24/22 07:23 97.5 F 84 18 134/58 L 91 L Room Air Anesthesia: Monitored Mental Status: Awake Pain Control: Satisfactory Nausea/Vomiting: None Hydration: Adequate Anesthesia-Related Issues: No Anes. Related Issues
== END 2022-04-24 12:18 | disposition home or self-care (01) ==
LOC: HO.ED 23:00 → HO.EDOVER 23:59 → HO.S3 04-23 02:05
PROVIDERS: Internal Medicine Gastroenterology; Nurse Practitioner Family; Physician Assistant; Admitting Provider Internal Medicine; Emergency Provider Emergency Medicine; PCP Internal Medicine; Visit Provider Student in an Organized Health Care Education/Training Program
PROC: 0DJ08ZZ Inspection of Upper Intestinal Tract, Via Natural or Artificial Opening Endoscopic (ICD-10-PCS; CPT 43235; principal; 2022-04-23 14:40)
DX: K22.10 Ulcer of esophagus without bleeding (principal); K92.0 Hematemesis; K21.9 Gastro-esophageal reflux disease without esophagitis; D72.829 Elevated white blood cell count, unspecified; K29.60 Other gastritis without bleeding; K44.9 Diaphragmatic hernia without obstruction or gangrene; E78.5 Hyperlipidemia, unspecified; E66.9 Obesity, unspecified; E55.9 Vitamin D deficiency, unspecified; I12.9 Hypertensive chronic kidney disease with stage 1 through stage 4 chronic kidney disease, or unspecified chronic kidney disease; E11.22 Type 2 diabetes mellitus with diabetic chronic kidney disease; N18.9 Chronic kidney disease, unspecified; Z79.4 Long term (current) use of insulin; Z20.822 Contact with and (suspected) exposure to COVID-19; Z68.41 Body mass index [BMI] 40.0-44.9, adult; Z79.899 Other long term (current) drug therapy
CPT/HCPCS: 43239; 36415; 71046; 74177; 80048; 80076; 82947; 84484; 84702; 85025; 85027; 87635; 88305; 88342; 93005; 96372; 96374; 99221; 99285; Q9967

== ENCOUNTER 2022-05-14 12:37 | Emergency (ER) | payer MEDICAID, SELFPAY ==
--- NOTE | ~2022-05-14 | XR_ITS ---
EXAMINATION: XR CHEST CLINICAL INFORMATION: Cough, fever. COMPARISON: 04/22/2022 chest radiograph. TECHNIQUE: 2 views of the chest were obtained. FINDINGS: No significant abnormality is noted involving the heart, lungs, mediastinum, bony thorax or soft tissues. XR/XR chest 2V IMPRESSION: No acute cardiopulmonary process.
[2022-05-14 12:42] VITALS: BP 131/76; PULSE 85; O2SAT 98
[2022-05-14 12:58] VITALS: BP 130/73; PULSE 104; RESP 20; TEMP 38.7; O2SAT 95; BMI 40.8
[2022-05-14] MEDS: Acetaminophen 325 MG TABLET 975 MG PO (13:04)
[2022-05-14 13:20] LABS: IDNOW Serial# 6674DD1D; Strep A Nucleic Acid Negative (Negative)
[2022-05-14 13:55] LABS: Influenza A PCR NEGATIVE (Negative); Influenza B PCR NEGATIVE (Negative); Resp Syncy Virus RNA Qual PCR NEGATIVE (Negative); SARS COV2 PCR INHOUSE POSITIVE (Negative)
[2022-05-14] MEDS: Ondansetron ODT 4 MG TAB.RAPDIS TRANSLINGU (14:47)
[2022-05-14 14:49] VITALS: TEMP 37.5
--- NOTE | 2022-05-14 15:24 | ED.URI ---
HPI - URI/Sore Throat General Chief Complaint: Upper Respiratory Symptoms Stated Complaint: Leg cramping, low back pain per EMS Time Seen by Provider: 05/14/22 13:55 Source: patient Mode of arrival: ambulatory History of Present Illness HPI Narrative: 41-year-old female with a past medical history of asthma, diabetes, HLD, HTN, substance abuse, presenting to the ED complaining of fever, myalgias, congestion, headache, abdominal cramping, nausea, vomiting, diarrhea, cough, mild SOB since last night. Denies chest pain, calf pain, recent travel, sick contacts, dysuria MD elicited complaint: fever, cough, rhinorrhea and nasal congestion Related Data Home Medications Medication Instructions Recorded Confirmed ergocalciferol (vitamin D2) 1,250 1,250 mcg PO QWEEK 10/16/20 04/23/22 mcg (50,000 unit) capsule gabapentin 100 mg capsule 100 mg PO TID 10/16/20 04/23/22 melatonin 10 mg capsule 10 mg PO BEDTIME PRN Insomnia 10/16/20 04/23/22 risperidone 2 mg tablet 2 mg PO DAILY 10/16/20 04/23/22 sertraline 100 mg tablet (Zoloft) 100 mg PO DAILY 10/16/20 04/23/22 topiramate 25 mg sprinkle capsule 25 mg PO BEDTIME 10/16/20 04/23/22 (Topamax) chlorpromazine 100 mg tablet 1 tab PO BEDTIME 04/22/22 04/23/22 hydroxyzine pamoate 25 mg capsule 25 mg PO BID PRN Anxiety 04/22/22 04/23/22 prazosin 1 mg capsule 1 cap PO BEDTIME 04/22/22 04/23/22 buspirone 15 mg tablet 15 mg PO BID 04/23/22 04/23/22 dulaglutide 0.75 mg/0.5 mL 0.75 mg subcut SALAZAR 04/23/22 04/23/22 subcutaneous pen injector (Trulicity) insulin degludec 200 unit/mL (3 56 unit subcut BEDTIME 04/23/22 04/23/22 mL) subcutaneous pen (Tresiba FlexTouch U-200 insulin) insulin lispro 100 unit/mL 0 sliding scale dose subcut QIDACHS 04/23/22 04/23/22 subcutaneous pen (Humalog KwikPen (U-100) Insulin) metformin 500 mg tablet,extended 500 mg PO DAILY@1730 04/23/22 04/23/22 release 24hr pantoprazole 40 mg tablet,delayed 40 mg PO DAILY 04/23/22 04/23/22 release quetiapine 100 mg tablet 100 mg PO BEDTIME 04/23/22 04/23/22 Previous Rx's Medication Instructions Recorded atorvastatin 40 mg tablet 40 mg PO BEDTIME #30 tabs 05/26/21 blood sugar diagnostic (FreeStyle #150 ea 05/26/21 Lite Strips) blood-glucose meter (FreeStyle #1 ea 05/26/21 Lite Meter kit) lancets 28 gauge (FreeStyle #200 ea 05/26/21 Lancets) omeprazole 40 mg capsule,delayed 40 mg PO BID@0630,1630 #120 caps 04/24/22 release Allergies Allergy/AdvReac Type Severity Reaction Status Date / Time ibuprofen [From Motrin] Allergy Anaphylaxis Verified 04/22/22 23:07 morphine Allergy Hives Verified 04/22/22 23:07 Review of Systems Review of Systems: Constitutional: + Fever, No Chills ENT/Mouth: No Ear Pain, + Nasal Congestion, No Sinus Pain, No Hoarseness, + sore throat, + Rhinorrhea, No Swallowing Difficulty Cardiovascular: No Chest Pain, No SOB Respiratory: + Cough, No Sputum, No Wheezing Gastrointestinal: + Nausea, + Vomiting, + Diarrhea, No Constipation, + Abdominal pain Genitourinary: No Dysuria, No Urinary Frequency, No Hematuria Musculoskeletal: No joint pain, + Myalgias, No Joint Swelling Skin: No Skin Lesions, No rash Neuro: No Weakness, No Numbness, No Paresthesias, +PINK Yes all other systems are reviewed and are negative Constitutional: Constitutional: Reports as per [facility] Past Medical History Attestation statement: The following information was validated with the patient. Medical History Asthma Diabetes Diabetes type 2, uncontrolled History of gastroesophageal reflux (GERD) Hyperlipidemia LDL goal <100 Hypertension Obesity due to excess calories Substance abuse Type 2 diabetes mellitus with chronic kidney disease Vitamin D deficiency Surgical History Hx of section Hx of splenectomy Family History Family History Mother Diabetes Maternal Grandmother Diabetes Maternal Aunt Diabetes Hypertension Father No problems noted. Social History Social History Household Members: Other Household Members Other:: roommate Housing Other:: Hose for woman Do you presently have visiting nurse or other home services: No Alcohol intake: never Patient Tobacco Use Status: Current everyday Tobacco user Cigarettes Per Day: 6 Years Smoked: 30 Second Hand Smoke Exposure: Yes Advance Directives: No Advance Directives Information Provided: Yes service: No Current occupational status: unemployed Physical Exam Vital Signs: Vital Signs: Last Vital Signs Temp 99.5 F 05/14/22 14:49 Pulse 104 H 05/14/22 12:58 Resp 20 05/14/22 12:58 BP 130/73 05/14/22 12:58 Pulse Ox 95 05/14/22 12:58 O2 Del Method 05/14/22 12:58 BMI result Body Mass Index 40.8 Const: General: cooperative, healthy appearing and no acute distress Orientation/consciousness: patient oriented x3 Limitations: no limitations HEENT: Head: Yes normal to inspection and Yes atraumatic Ears: hearing grossly normal bilaterally, TM's normal bilaterally and mastoids normal General nose exam: Normal external nose present Face and sinus: Yes normal facial exam Mouth: Normal oral and palatal mucosa present Throat: Yes posterior oropharynx normal, Yes tonsils normal, Yes uvula midline, No peritonsillar mass and No uvular edema Eyes: General: appearance normal, both eyes and all related structures EOM: EOMs intact bilaterally Neck: Neck: Yes normal visual inspection and Yes no meningeal signs Resp: Effort & Inspection: normal respiratory effort and no respiratory distress Auscultation: clear to auscultation bilaterally, no crackles, no rales and no rhonchi Cardio: Rate: regular rate Heart sounds: S1 normal heart sound present and S2 normal heart sound present GI: Inspection: Yes normal to inspection Palpation (GI): Soft to palpation, nontender, no guarding and not rigid Skin: Rashes: no rashes Wounds: no wounds Neuro: General: patient oriented x3, tone normal and no meningeal signs Gait exam (Neuro): Normal gait present Extrem: General: Yes normal to inspection, Yes no pedal edema, Yes no calf tenderness and Yes normal gait Course Course Course Narrative: -COVID-19 positive -CXR unremarkable -fever resolved after p.o. antipyretics, patient tolerated p.o. in the ED without nausea or vomiting. Requesting to be discharged. Results discussed with patient including worrisome signs and symptoms and strict return precautions, and when to return to the emergency department. They verbalized understanding and feel safe for discharge at this time. Medications Administered Discontinued Medications Generic Name Dose Route Start Last Admin Trade Name Loretta PRN Reason Stop Dose Admin Acetaminophen 975 mg 05/14/22 13:01 05/14/22 13:04 Acetaminophen 325 Mg Tablet PO 05/14/22 13:02 975 mg ONCE ONE Administration Ondansetron HCl 4 mg 05/14/22 14:32 05/14/22 14:47 Ondansetron Odt 4 Mg Tab.Rapdis TRANSLINGU 05/14/22 14:33 4 mg ONCE ONE Administration Medical Decision Making Medical Decision Making [facility] Narrative: 41-year-old female with a past medical history of asthma, diabetes, HLD, HTN, substance abuse, presenting to the ED complaining of fever, myalgias, congestion, headache, abdominal cramping, nausea, vomiting, diarrhea, cough, mild SOB since last night. On exam febrile to 101.7, tachycardic likely from fever, NAD/nontoxic appearing, abdomen soft/nontender, lungs CTA. Concern for viral illness vs gastroenteritis vs pneumonia. Lower suspicion for appendicitis/diverticulitis, ACS or PE. Low suspicion for DVT Plan: COVID-19/influenza/RSV testing, CXR, sublingual Zofran, p.o. challenge Please refer to course for remaining clinical decision making, interpretation of labs/imaging results, and discussions with consultants and/or family members. Differential Diagnosis Differential Diagnoses: The differential diagnosis associated with the presentation includes As above Lab Data [facility] Lab Attestation statement: I reviewed the patient's lab results. Labs: Lab Results 05/14/22 05/14/22 Range/Units 13:06 13:06 Influenza Type A (PCR) NEGATIVE (Negative) Influenza Type B (PCR) NEGATIVE (Negative) RSV RNA Qual (PCR) NEGATIVE (Negative) SARS-CoV-2 RNA (RT-PCR) POSITIVE A (Negative) S. pyogenes GrpA BLADIMIR Negative (Negative) Radiology Impression Discussion of test interpretation with radiology: I have reviewed the radiologist's reading. External Record Review External record reviewed: Office record and Outpatient record Prescription Management I considered prescription management with: Pain Medication and Antiviral Chronic Conditions Patient?s care impacted by: Diabetes and Other Discharge Plan Discharge Clinical Impression: COVID-19 Patient Disposition: Home, Self-Care Instructions: COVID-19 (Coronavirus Disease 2019) (ED) Additional Instructions: At this time you will be okay for discharge. Please self isolate for 5-10 days. Do not expose yourself to others. You may not go to work or school. Please continue to follow cold instructions and wash your hands frequently. You may take Tylenol / Motrin as directed on the bottle for pain or fever. If you have constant or persistent shortness of breath, fever unresolved with medications, chest pain, or your unable to eat or drink please return to the ED CDC Guidelines for home isolation: - Stay away from others - WEAR A MASK if you are sick AND STAY HOME - Cover your mouth and nose with a tissue when you cough or sneeze. Dispose of tissues in a lined trash can and wash your hands immediately with soap and water for at least 20 seconds. If soap and water are not available, clean hands with alcohol-based hand inner tube cutter that contains at least 60% alcohol. - Clean your hands often with soap and water for at least 20 seconds - Avoid touching your eyes, nose and mouth with unwashed hands - Do not share dishes, drinking glasses, cups, eating utensils, towels, or bedding with other people in your home. After using these items, wash them thoroughly with soap and water or put in the medication care manager. - Clean high-touch surfaces in your isolation area ( sick room and bathroom) every day; let a caregiver clean and disinfect high-touch surfaces in other areas of the home. Clean the area or item with soap and water or another detergent if it is dirty. Then, use a household disinfectant. - Limit contact with pets and animals: If you must care for a pet, wash your hands before and after interacting with them) Prescriptions: No Action chlorpromazine 100 mg tablet 1 tab PO BEDTIME prazosin 1 mg capsule 1 cap PO BEDTIME hydroxyzine pamoate 25 mg capsule 25 mg PO BID PRN (Reason: Anxiety) quetiapine 100 mg Tablet 100 mg PO BEDTIME pantoprazole 40 mg Tablet,Delayed Release (Dr/Ec) 40 mg PO DAILY buspirone 15 mg Tablet 15 mg PO BID metformin 500 mg Tablet Extended Release 24hr 500 mg PO DAILY@1730 insulin degludec [Tresiba FlexTouch U-200] 200 unit/mL (3 mL) insulin pen 56 unit subcut BEDTIME insulin lispro [Humalog KwikPen Insulin] 100 unit/mL insulin pen 0 sliding scale dose subcut QIDACHS Protocol: Insulin Correction Scale Less than or equal to 110 ---- Give (units): 0 111 to 150 Give (units): 0 151 to 200 Give (units): 2 201 to 250 Give (units): 4 251 to 300 Give (units): 6 301 to 350 Give (units): 8 Greater than 350 Give (units): 10 Call MD if Blood Glucose > : 350 Trulicity 0.75 mg/0.5 mL pen injector 0.75 mg subcut SALAZAR omeprazole 40 mg Capsule,Delayed Release(Dr/Ec) 40 mg PO BID@0630,1630 Qty: 120 2RF gabapentin 100 mg capsule 100 mg PO TID ergocalciferol (vitamin D2) 1,250 mcg (50,000 unit) capsule 1,250 mcg PO QWEEK sertraline [Zoloft] 100 mg tablet 100 mg PO DAILY melatonin 10 mg capsule 10 mg PO BEDTIME PRN (Reason: Insomnia) topiramate [Topamax] 25 mg capsule, sprinkle 25 mg PO BEDTIME risperidone 2 mg tablet 2 mg PO DAILY atorvastatin 40 mg tablet 40 mg PO BEDTIME Qty: 30 11RF (DME) blood-glucose meter [FreeStyle Lite Meter] Kit See Rx Instructions .ROUTE .MEDSUPPLY Qty: 1 0RF Rx Instructions: As directed (DME) FreeStyle Lite Strips Strip See Rx Instructions .ROUTE .MEDSUPPLY Qty: 150 11RF Rx Instructions: As directed four times a day (DME) lancets [FreeStyle Lancets] 28 gauge misc See Rx Instructions .ROUTE .MEDSUPPLY Qty: 200 11RF Rx Instructions: 4 times a day Referrals: Daphne Cortez MD [Primary Care Provider] - Stand Alone Forms: Work/School Release
== END 2022-05-14 15:47 | disposition home or self-care (01) ==
PROVIDERS: Physician Assistant Medical; Emergency Provider Emergency Medicine; PCP Internal Medicine
DX: U07.1 COVID-19 (principal); E11.9 Type 2 diabetes mellitus without complications; I10 Essential (primary) hypertension; E78.5 Hyperlipidemia, unspecified; F19.10 Other psychoactive substance abuse, uncomplicated; F17.210 Nicotine dependence, cigarettes, uncomplicated; Z79.4 Long term (current) use of insulin; Z79.02 Long term (current) use of antithrombotics/antiplatelets; Z79.899 Other long term (current) drug therapy
CPT/HCPCS: 0241U; 71046; 87651; 99283

== ENCOUNTER 2022-10-04 12:49 | Outpatient (REF) | payer MEDICAID, SELFPAY ==
[2022-10-04 17:06] LABS: Basophils Absolute Auto 0.1 X10*3/uL (0.0-0.2); Basophils Percent Auto 0.7 % (0-2); Eosinophils Absolute Auto 0.2 X10*3/uL (0.0-0.4); Eosinophils Percent Auto 1.2 % (0-4); Hematocrit 34.6 % (37.0-47.0); Hemoglobin 10.6 g/dl (12.0-16.0); Imm Gran Abs Auto 0.06 X10*3/uL (0.00-0.03); Imm Gran Pct Auto 0.4 % (0.0-0.4); MANUAL DIFF FLAG SCAN; Mean Corpuscular HGB Conc 30.6 g/dl (31.0-35.0); Mean Corpuscular Hemoglobin 23.4 pg (27.0-33.0); Mean Corpuscular Volume 76.4 fL (80.0-98.0); Mean Platelet Volume 11.7 fL (9.4-12.3); Monocytes Absolute Auto 0.9 X10*3/uL (0.1-1.2); Monocytes Percent Auto 6.8 % (2-11); Neutrophils Absolute Auto 7.3 x10*3/uL (2.0-8.3); Neutrophils Percent Auto 53.9 % (45-73); Platelet Count 441 X10*3/uL (160-400); Red Blood Count 4.53 X10*6/uL (4.20-5.50); Red Cell Distribution Width 18.4 % (11.0-16.0); SCAN SMEAR FLAG 1; White Blood Count 13.6 X10*3/uL (4.8-10.8)
[2022-10-04 17:11] LABS: Estimated Average Glucose 226 mg/dL; Hemoglobin A1c % 9.5 %
[2022-10-04 17:55] LABS: SLIDE REVIEW VERIFIED
[2022-10-04 18:23] LABS: Alanine Aminotransferase 12 U/L (0-31); Albumin Level 3.9 g/dL (3.5-5.0); Alkaline Phosphatase 87 U/L (39-117); Anion Gap 15 (12-20); Aspartate Amino Transferase 12 U/L (5-31); Bilirubin Total 0.3 mg/dL (0.0-1.0); Blood Urea Nitrogen 11 mg/dL (9-16); C Reactive Protein 3.47 mg/dL (< or = 0.50); Carbon Dioxide 23 mmol/L (22-29); Chloride 102 mmol/L (96-108); Cholesterol 208 mg/dL; Estimated Glomerular Filt Rate > 60; Glucose Random 260 mg/dL (60-115); HDL Cholesterol 45 mg/dL; LDL Cholesterol Calculated 129 mg/dl; Potassium 4.1 mmol/L (3.3-5.1); Sodium 136 mmol/L (135-145); Total Protein 7.9 g/dL (6.5-8.0); Triglycerides 174 mg/dL
[2022-10-04 18:40] LABS: Thyroid Stimulating Hormone 0.98 uIU/mL (0.32-4.0)
[2022-10-07 11:53] LABS: Prolactin 12.9 ng/mL
== END 2022-10-04 12:50 | disposition home or self-care (01) ==
LOC: HO.HHCL 12:49
PROVIDERS: Visit Provider Psychiatry & Neurology Child & Adolescent Psychiatry
DX: F14.21 Cocaine dependence, in remission (principal)
CPT/HCPCS: 36415; 80053; 80061; 83036; 84146; 84439; 84443; 85025; 86140

== ENCOUNTER 2022-10-19 17:52 | Outpatient (REF) | payer MEDICAID, SELFPAY ==
[2022-10-19 19:10] LABS: Influenza A PCR NEGATIVE (Negative); Influenza B PCR NEGATIVE (Negative); Resp Syncy Virus RNA Qual PCR NEGATIVE (Negative); SARS COV2 PCR INHOUSE NEGATIVE (Negative)
== END 2022-10-19 17:53 | disposition home or self-care (01) ==
LOC: HO.HHCLNP 17:52
PROVIDERS: Visit Provider Registered Nurse
DX: J06.9 Acute upper respiratory infection, unspecified (principal); Z20.822 Contact with and (suspected) exposure to COVID-19
CPT/HCPCS: 0241U; 87070

== ENCOUNTER 2022-10-27 11:47 | Outpatient (REF) | payer MEDICAID, SELFPAY ==
[2022-10-27 14:16] LABS: Microalbum/Creatinine Ratio Ur 55.9 ug/mg cr
[2022-10-27 14:40] LABS: TSH reflex Free T4 1.16 uIU/mL (0.32-4.0); Vitamin D 25-OH Total 22.4 ng/mL (>30)
[2022-10-27 14:48] LABS: Syphilis Screen Nonreactive (Nonreactive)
[2022-10-28 05:52] LABS: HBS Num1 0.27 mIU/mL (0-7.99); HBsAGNum1 0.37 S/CO (0.00-0.99); HIV AB/AG Nonreactive (Nonreactive); HIV Num 1 0.06 S/CO (0.00-0.99); Hepatitis A Antibody IgM 0.21 Index (0-0.79); Hepatitis B Core Antibody Nonreactive (Nonreactive); Hepatitis B Surface Antigen Negative (Negative); ~HepC Num1 0.08 S/CO (0.00-0.79); ~Hepatitis A Antibody IgM Nonreactive (Nonreactive); ~Hepatitis B Surface Antibody NONREACTIVE (Nonreactive); ~Hepatitis C Antibody Nonreactive (Nonreactive)
[2022-10-29 03:27] LABS: Rubella IgG Antibody 0.92 Index
[2022-10-30 06:44] LABS: TS Negative Control Passed; TS Panel A 0; TS Panel B 0; TS Positive Control Passed; TSpotTB Negative (Negative)
== END 2022-10-27 11:48 | disposition home or self-care (01) ==
LOC: HO.HHCL 11:47
PROVIDERS: Visit Provider Internal Medicine
DX: Z00.00 Encounter for general adult medical examination without abnormal findings (principal); Z11.4 Encounter for screening for human immunodeficiency virus [HIV]; E11.65 Type 2 diabetes mellitus with hyperglycemia; Z79.4 Long term (current) use of insulin
CPT/HCPCS: 36415; 82043; 82306; 84443; 86481; 86704; 86706; 86709; 86735; 86762; 86765; 86780; 86803; 87340; 87389

== ENCOUNTER 2022-12-01 10:28 | Outpatient (REF) | payer MEDICAID, SELFPAY ==
--- NOTE | ~2022-12-01 | MM_ITS ---
EXAMINATION: MM SCREENING DIGITAL BREAST TOMOSYNTHESIS, BILATERAL CLINICAL INFORMATION: Screening. Asymptomatic. COMPARISON: Mammography: This is a baseline study. TECHNIQUE: Digital breast tomosynthesis is performed in both the craniocaudal and mediolateral oblique views along with computer-aided detection (CAD). Synthesized 2D images are generated from the tomosynthesis. FINDINGS: The breasts are almost entirely fatty (ACR BI-RADS breast composition Category a). There are no significant masses, abnormal calcifications, or other abnormalities. MM/MM tomosynthesis screening BI IMPRESSION: No mammographic evidence of malignancy. ASSESSMENT: BI-RADS BI-RADS 1 - Negative RECOMMENDATION: Routine annual mammography screening. 1 year F/U This examination should not preclude the clinical evaluation of a suspicious palpable abnormality. This patient's information was entered into a reminder system with a target due date for their next mammogram.
== END 2022-12-01 10:29 | disposition home or self-care (01) ==
LOC: HO.MAMMO 10:28
PROVIDERS: PCP Internal Medicine; Visit Provider Internal Medicine
DX: Z12.31 Encounter for screening mammogram for malignant neoplasm of breast (principal)
CPT/HCPCS: 77063; 77067

== ENCOUNTER → 2022-12-01 11:00 | Outpatient (BNV) | payer MEDICAID, SELFPAY | PROVIDERS: PCP Internal Medicine; Visit Provider Radiology Diagnostic Radiology | DX: Z12.31 Encounter for screening mammogram for malignant neoplasm of breast (principal) | CPT/HCPCS: 77063; 77067 ==

== ENCOUNTER 2022-12-08 17:24 | Outpatient (REF) | payer MEDICAID, SELFPAY ==
[2022-12-09 04:46] LABS: CT PCR NOT DETECTED (Not Detect.); NG PCR NOT DETECTED (Not Detect.)
[2022-12-09 11:40] LABS: BV Int Neg Control Negative (Negative); BV Int Pos Control Positive (Positive)
== END 2022-12-08 17:25 | disposition home or self-care (01) ==
LOC: HO.HHCL 17:24
PROVIDERS: Visit Provider Internal Medicine
DX: N89.8 Other specified noninflammatory disorders of vagina (principal); Z20.2 Contact with and (suspected) exposure to infections with a predominantly sexual mode of transmission
CPT/HCPCS: 0353U; 87480; 87510; 87660

== ENCOUNTER 2022-12-13 18:14 | Outpatient (REF) | payer MEDICAID, SELFPAY ==
[2022-12-13 19:58] LABS: Influenza A PCR NEGATIVE (Negative); Influenza B PCR NEGATIVE (Negative); Resp Syncy Virus RNA Qual PCR NEGATIVE (Negative); SARS COV2 PCR INHOUSE NEGATIVE (Negative)
== END 2022-12-13 18:15 | disposition home or self-care (01) ==
LOC: HO.HHCLNP 18:14
PROVIDERS: Visit Provider Internal Medicine
DX: J02.0 Streptococcal pharyngitis (principal); Z20.822 Contact with and (suspected) exposure to COVID-19
CPT/HCPCS: 0241U

== ENCOUNTER 2023-01-17 18:15 | Outpatient (REF) | payer MEDICAID, SELFPAY ==
[2023-01-18 09:44] LABS: CT PCR NOT DETECTED (Not Detect.); NG PCR NOT DETECTED (Not Detect.)
[2023-01-18 10:39] LABS: BV Int Neg Control Negative (Negative); BV Int Pos Control Positive (Positive)
== END 2023-01-17 18:16 | disposition home or self-care (01) ==
LOC: HO.HHCLNP 18:15
PROVIDERS: Visit Provider Internal Medicine
DX: N89.8 Other specified noninflammatory disorders of vagina (principal)
CPT/HCPCS: 0353U; 87480; 87510; 87660

== ENCOUNTER 2023-04-08 16:13 | Inpatient (IN) | payer MEDICAID, SELFPAY ==
[2023-04-08] VITALS (7 sets, daily range): BP systolic 109–153; BP diastolic 72–88; PULSE 74–101; RESP 16–20; TEMP 36.3–37; O2SAT 95–99; BMI 41.4
[2023-04-08 16:55] LABS: Glucose, Whole Blood > 600 mg/dL (60-115)
[2023-04-08 16:55] LABS: Glucose, Whole Blood > 600 mg/dL (60-115)
--- NOTE | 2023-04-08 16:56 | ED_ITS ---
HPI - General Adult General Chief complaint: Abdominal Pain Stated complaint: HIGH BLOOD SUGAR([id number]), VOMITING Time Seen by Provider: 04/08/23 16:55 Source: patient and RN notes reviewed Limitations: no limitations History of Present Illness HPI narrative: 42-year-old female who has a history of poorly-controlled diabetes, hyperlipidemia, hypertension, obesity, presents for evaluation abdominal pain, nausea, vomiting, and elevated glucose levels over the past 2-3 days. Patient states that symptoms initially began with cramping in her legs bilaterally. It is diffusely throughout her legs. Patient also reports that she is having diffuse abdominal pain, cramping. She has had associated nausea and vomiting. She reports dark vomitus. She has had a history of coffee-ground emesis in the past. Patient denies any NSAID or aspirin use. Patient also reports that she has not been compliant with her medications for the past several days because she feels as though some of them are making her worse. She smokes tobacco occasionally. She denies any alcohol use. No illicit drug abuse. Related Data Home Medications Medication Instructions Recorded Confirmed ergocalciferol (vitamin D2) 1,250 1,250 mcg PO QWEEK 10/16/20 04/23/22 mcg (50,000 unit) capsule gabapentin 100 mg capsule 100 mg PO TID 10/16/20 04/23/22 melatonin 10 mg capsule 10 mg PO BEDTIME PRN Insomnia 10/16/20 04/23/22 risperidone 2 mg tablet 2 mg PO DAILY 10/16/20 04/23/22 sertraline 100 mg tablet (Zoloft) 100 mg PO DAILY 10/16/20 04/23/22 topiramate 25 mg sprinkle capsule 25 mg PO BEDTIME 10/16/20 04/23/22 (Topamax) chlorpromazine 100 mg tablet 1 tab PO BEDTIME 04/22/22 04/23/22 hydroxyzine pamoate 25 mg capsule 25 mg PO BID PRN Anxiety 04/22/22 04/23/22 prazosin 1 mg capsule 1 cap PO BEDTIME 04/22/22 04/23/22 buspirone 15 mg tablet 15 mg PO BID 04/23/22 04/23/22 dulaglutide 0.75 mg/0.5 mL 0.75 mg subcut SALAZAR 04/23/22 04/23/22 subcutaneous pen injector (Trulicity) insulin degludec 200 unit/mL (3 56 unit subcut BEDTIME 04/23/22 04/23/22 mL) subcutaneous pen (Tresiba FlexTouch U-200 insulin) insulin lispro 100 unit/mL 0 sliding scale dose subcut QIDACHS 04/23/22 04/23/22 subcutaneous pen (Humalog KwikPen (U-100) Insulin) metformin 500 mg tablet,extended 500 mg PO DAILY@1730 04/23/22 04/23/22 release 24hr (osmotic) pantoprazole 40 mg tablet,delayed 40 mg PO DAILY 04/23/22 04/23/22 release quetiapine 100 mg tablet 100 mg PO BEDTIME 04/23/22 04/23/22 Previous Rx's Medication Instructions Recorded atorvastatin 40 mg tablet 40 mg PO BEDTIME #30 tabs 05/26/21 blood sugar diagnostic (FreeStyle #150 ea 05/26/21 Lite Strips) blood-glucose meter (FreeStyle #1 ea 05/26/21 Lite Meter kit) lancets 28 gauge (FreeStyle #200 ea 05/26/21 Lancets) omeprazole 40 mg capsule,delayed 40 mg PO BID@0630,1630 #120 caps 04/24/22 release Allergies Allergy/AdvReac Type Severity Reaction Status Date / Time ibuprofen [From Motrin] Allergy Anaphylaxis Verified 04/08/23 16:41 morphine Allergy Hives Verified 04/08/23 16:41 Review of Systems 2 Constitutional: Constitutional: Denies chills, Denies fever(s) and Denies headache(s) Eyes: Eyes: Denies change in vision and Denies other (No redness.) ENT: Denies headache(s), Denies nasal congestion, Denies nasal discharge, Denies neck pain and Denies sore throat Cardiovascular: Cardiovascular: Denies chest pain, Denies palpitations, Denies dyspnea, Denies dyspnea on exertion and Denies orthopnea Respiratory: Respiratory: Denies cough, Denies dyspnea and Denies dyspnea on exertion Gastrointestinal: Gastrointestinal: Reports abdominal pain, Reports melena, Denies hematochezia, Reports diarrhea, Reports nausea and Reports vomiting Genitourinary: Genitourinary: Denies dysuria and Denies urinary urgency Musculoskeletal: Musculoskeletal: Denies back pain, Denies muscle weakness, Denies neck pain and Denies numbness Integumentary/Breasts: Skin/Breast: Denies rash Neurologic: Denies headache(s), Denies focal weakness and Denies numbness Psychiatric: Psychiatric: Denies depression Endocrine: Endocrine: Denies palpitations PMFSH Past Medical History Onset Date is defined in the Problem List Problems that require an onset date and time if occurred within 24 hrs of arrival to the ED Aortic Dissection and Rupture; Neurologic impairment; Cardiopulmonary Arrest; Endotracheal Intubation; Insertion or Replacement of Mechanical Circulatory Assist Device Medical History History of gastroesophageal reflux (GERD) Substance abuse Vitamin D deficiency Obesity due to excess calories Type 2 diabetes mellitus with chronic kidney disease Diabetes type 2, uncontrolled Hyperlipidemia LDL goal <100 Diabetes Hypertension Asthma Surgical History Hx of section Hx of splenectomy Family History Family History Mother Diabetes Maternal Grandmother Diabetes Maternal Aunt Diabetes Hypertension Father No problems noted. Social History Social History Household Members: Other Household Members Other:: roommate Housing Other:: Hose for woman Do you presently have visiting nurse or other home services: No Unable to assess alcohol history related to: Unknown Alcohol intake: never Patient Tobacco Use Status: Current everyday Tobacco user Cigarettes Per Day: 6 Years Smoked: 30 Smoked in Last 30 Days: Yes Second Hand Smoke Exposure: Yes Use of substances other than those prescribed or required for medical reasons: Refusing to respond Advance Directives: No Advance Directives Information Provided: No Patient : No service: No Current occupational status: unemployed Physical Exam ED Vital Signs: Vital Signs - 24 hr 04/08/23 16:38 04/08/23 18:00 04/08/23 18:27 Temperature 97.3 F 97.4 F 98.6 F Pulse Rate 95 97 99 Respiratory Rate 20 20 16 Blood Pressure 132/77 128/72 110/77 Pulse Oximetry 99 99 95 Oxygen Delivery Method Room Air Room Air Room Air 04/08/23 19:19 04/08/23 19:42 04/08/23 22:40 Temperature 98.6 F 98.5 F Pulse Rate 101 H 95 91 Respiratory Rate 18 18 Blood Pressure 153/80 H 109/75 109/73 Pulse Oximetry 97 96 96 Oxygen Delivery Method Room Air Room Air Room Air 04/08/23 23:30 Temperature 98.3 F Pulse Rate 90 Respiratory Rate 18 Blood Pressure 134/79 Pulse Oximetry 97 Oxygen Delivery Method Room Air BMI result Body Mass Index 41.4 Const Other: Patient actively drinking water at the bedside. Advised patient no additional food or drink at this time. General: alert and awake Nutritional Appearance: obese HENMT Other: Mucous membranes dry Eyes General: appearance normal, both eyes and all related structures Resp Auscultation: clear to auscultation bilaterally Cardio Rate: regular rate Rhythm: regular rhythm GI Other: Abdomen is soft and nontender throughout. No peritoneal signs. No CVAT. Other: Rectal exam with female RN Mireille present. No external hemorrhoids. Normal rectal tone. Small amount of brown stool in the rectal vault. Occult blood sample obtained. Skin Other: Skin is dry Extrem Other: Diffuse thigh and calf tenderness bilaterally. There is no edema. Full range of motion of all joints. Psych Attitude: cooperative Course Course Course Narrative: 7:20 p.m. glucose returned at 957. Patient also appears very dry. She has initially received 1 L of normal saline and 10 units of insulin IV. Consideration for insulin drip. Patient the given additional 3 L of normal saline. Discussed with Dr. Coto who agrees with plan. 9:00 p.m. patient's glucose is improving gradually with IV fluids. Viral panel is negative. Occult stool test is negative. 9:40 p.m. glucose improved to 543 11:15 p.m. last glucose 486. Patient reports feeling better at this time. She denies any cramping or abdominal pain. She has not had any nausea or vomiting. The patient has been tolerating oral hydration. Patient has tolerated IV fluids. Given that the patient has new ANA with creatinine of 1.57, a significantly elevated glucose level upon arrival, patient will be brought into the hospital for further evaluation and management. Discussed with Dr. Coto who agrees with plan. Add ideal body weight insulin at 0.3 units/kg. Alf to Dr. Jacques Olsen for transfer of care. Medications Administered Generic Name Dose Route Start Last Admin Trade Name Freq PRN Reason Stop Dose Admin Sodium Chloride 1,000 mls @ 125 mls/hr 04/09/23 00:45 04/09/23 00:49 Ns IVCONT 125 mls/hr .Q8H YARED Administration Discontinued Medications Generic Name Dose Route Start Last Admin Trade Name Robq PRN Reason Stop Dose Admin Sodium Chloride 1,000 mls @ 999 mls/hr 04/08/23 17:00 04/08/23 19:19 Ns IV 04/08/23 18:00 Infused .Q1H1M YARED Infusion Sodium Chloride 3,000 mls @ 999 mls/hr 04/08/23 19:15 04/08/23 23:50 Ns IV 04/08/23 22:15 Infused .Q3H1M YARED Infusion Insulin Glargine 20.55 unit 04/08/23 22:54 04/08/23 23:13 Insulin Glargine,Hum.Rec.Anlog 100 Unit/Ml 10 Ml Vial SUBCUT 04/08/23 22:55 20.55 unit ONCE ONE Administration Insulin Human Regular 10 unit 04/08/23 17:15 04/08/23 17:56 Insulin Regular, Human 100 Unit/Ml 3 Ml Vial IVPUSH 04/08/23 17:16 10 unit ONCE ONE Administration Medical Decision Making Medical Decision Making [facility] Narrative: 42-year-old female with a history poorly-controlled diabetes presents for abdominal pain, elevated glucose levels, and lower extremity cramping. Initial glucose noted to be over 600. IV fluids, insulin, labs. Differential Diagnosis Differential Diagnoses: The differential diagnosis associated with the presentation includes DKA Hyperglycemia Metabolic abnormality Dehydration GI bleeding, low suspicion Admission/Observation Consideration of admission/observation: Escalation of care including admission/observation considered Consult Healthcare Provider Management of the patient was discussed with: Hospitalist Lab Data [facility] Lab Attestation statement: I reviewed the patient's lab results. 04/08/23 18:20 04/08/23 18:20 Labs: Lab Results 04/08/23 04/08/23 04/08/23 Range/Units 16:45 16:50 18:19 WBC (4.8-10.8) X10*3/uL RBC (4.20-5.50) X10*6/uL Hgb (12.0-16.0) g/dl Hct (37.0-47.0) % MCV (80.0-98.0) fL MCH (27.0-33.0) pg MCHC (31.0-35.0) g/dl RDW (11.0-16.0) % Plt Count (160-400) X10*3/uL MPV Immature Gran % (Auto) Neut % (Auto) Lymph % (Auto) [place] % (Auto) Eos % (Auto) Baso % (Auto) Lymph # (Auto) [place] # (Auto) Eos # (Auto) Baso # (Auto) Abs Immat Gran (auto) Absolute Neuts (auto) Absolute Nucleated RBC (0.0-0.012) X10*3/uL Nucleated RBC % (auto) (0.0-0.2) /100WBC Neutrophils % (Manual) (45-73) % Band Neutrophils % (3-5) % Lymphocytes % (Manual) (20-40) % Monocytes % (Manual) (2-11) % Abs Neuts (Manual) (2.0-8.3) X10*3/uL Lymphocytes # (Manual) (1.2-4.9) X10*3/uL Monocytes # (Manual) (0.1-1.2) X10*3/uL Toxic Vacuolation Platelet Estimate (NORMAL) Large Platelets Plt Morphology Comment RBC Morphology Sodium (135-145) mmol/L Potassium (3.3-5.1) mmol/L Chloride (96-108) mmol/L Carbon Dioxide (22-29) mmol/L Anion Gap (12-20) BUN (9-16) mg/dL Creatinine (0.5-1.4) mg/dL Estim Creat Clear Calc Estimated GFR POC Glucose > 600 H* > 600 H* (60-115) mg/dL Random Glucose (60-115) mg/dL Calcium (8.4-10.2) mg/dL Magnesium (1.6-2.6) mg/dL Total Bilirubin (0.0-1.0) mg/dL AST (5-31) U/L ALT (0-31) U/L Alkaline Phosphatase (39-117) U/L Total Creatine Kinase (26-140) U/L Total Protein (6.5-8.0) g/dL Albumin (3.5-5.0) g/dL Lipase (8-78) U/L Beta-Hydroxybutyrate (0.02-0.27) mmol/L Urine Color Urine Appearance Urine pH (5.0-9.0) Ur Specific Larue (1.005-1.025) Urine Protein (Neg-Trace) mg/dL Urine Glucose (UA) (Negative) mg/dL Urine Ketones (Negative) mg/dL Urine Blood (Negative) Urine Nitrite (Negative) Ur Leukocyte Esterase (Negative) Urine RBC (0-2) /HPF Urine WBC (0-5) /HPF Ur Squamous Epith Cells (0-2) /HPF Urine Bacteria (None Seen) Hyaline Casts (0-2) /LPF Urine Yeast Stool Occult Blood (NEGATIVE) COVID-19 ([facility]) (Negative) COVID-19 Clin Com Influenza Type A ([facility]IR) (Negative) Influenza Type B ([facility]IR) (Negative) Influenza A & B Note Blood Type O Positive Antibody Screen NEGATIVE 04/08/23 04/08/23 04/08/23 Range/Units 18:20 19:38 19:51 WBC 10.3 (4.8-10.8) X10*3/uL RBC 5.53 H D (4.20-5.50) X10*6/uL Hgb 12.6 (12.0-16.0) g/dl Hct 40.9 (37.0-47.0) % MCV 74.0 L (80.0-98.0) fL MCH 22.8 L (27.0-33.0) pg MCHC 30.8 L (31.0-35.0) g/dl RDW 19.2 H (11.0-16.0) % Plt Count 224 D (160-400) X10*3/uL MPV Not Reportable Immature Gran % (Auto) Cancelled Neut % (Auto) Cancelled Lymph % (Auto) Cancelled [place] % (Auto) Cancelled Eos % (Auto) Cancelled Baso % (Auto) Cancelled Lymph # (Auto) Cancelled [place] # (Auto) Cancelled Eos # (Auto) Cancelled Baso # (Auto) Cancelled Abs Immat Gran (auto) Cancelled Absolute Neuts (auto) Cancelled Absolute Nucleated RBC 0.000 (0.0-0.012) X10*3/uL Nucleated RBC % (auto) 0.0 (0.0-0.2) /100WBC Neutrophils % (Manual) 62 (45-73) % Band Neutrophils % 0 L (3-5) % Lymphocytes % (Manual) 33 (20-40) % Monocytes % (Manual) 5 (2-11) % Abs Neuts (Manual) 6.4 (2.0-8.3) X10*3/uL Lymphocytes # (Manual) 3.4 (1.2-4.9) X10*3/uL Monocytes # (Manual) 0.5 (0.1-1.2) X10*3/uL Toxic Vacuolation PRESENT Platelet Estimate SLIGHTLY INCREASED (NORMAL) Large Platelets PRESENT Plt Morphology Comment NOTED RBC Morphology NORMAL Sodium 129 L (135-145) mmol/L Potassium 5.2 H (3.3-5.1) mmol/L Chloride 93 L (96-108) mmol/L Carbon Dioxide 24 (22-29) mmol/L Anion Gap 17 (12-20) BUN 13 (9-16) mg/dL Creatinine 1.57 H (0.5-1.4) mg/dL Estim Creat Clear Calc 70.3 Estimated GFR 36 POC Glucose 542 H* (60-115) mg/dL Random Glucose 957 H* (60-115) mg/dL Calcium 10.1 (8.4-10.2) mg/dL Magnesium 2.6 (1.6-2.6) mg/dL Total Bilirubin 0.5 (0.0-1.0) mg/dL AST 12 (5-31) U/L ALT 21 (0-31) U/L Alkaline Phosphatase 115 (39-117) U/L Total Creatine Kinase 146 H (26-140) U/L Total Protein 8.7 H (6.5-8.0) g/dL Albumin 4.4 (3.5-5.0) g/dL Lipase 15 (8-78) U/L Beta-Hydroxybutyrate 0.74 H (0.02-0.27) mmol/L Urine Color Yellow Urine Appearance Clear Urine pH 6.5 (5.0-9.0) Ur Specific Larue >= 1.030 H (1.005-1.025) Urine Protein Negative (Neg-Trace) mg/dL Urine Glucose (UA) >=1000 H (Negative) mg/dL Urine Ketones Negative (Negative) mg/dL Urine Blood Negative (Negative) Urine Nitrite Negative (Negative) Ur Leukocyte Esterase Negative (Negative) Urine RBC 0-2 (0-2) /HPF Urine WBC 6-10 H (0-5) /HPF Ur Squamous Epith Cells 0-2 (0-2) /HPF Urine Bacteria None Seen (None Seen) Hyaline Casts 0-2 (0-2) /LPF Urine Yeast Present Stool Occult Blood NEGATIVE (NEGATIVE) COVID-19 ([facility]) Negative (Negative) COVID-19 Clin Com See Note Influenza Type A ([facility]IR) Negative (Negative) Influenza Type B ([facility]) Negative (Negative) Influenza A & B Note See Note Blood Type Antibody Screen 04/08/23 04/08/23 04/08/23 Range/Units 20:10 20:40 21:40 WBC (4.8-10.8) X10*3/uL RBC (4.20-5.50) X10*6/uL Hgb (12.0-16.0) g/dl Hct (37.0-47.0) % MCV (80.0-98.0) fL MCH (27.0-33.0) pg MCHC (31.0-35.0) g/dl RDW (11.0-16.0) % Plt Count (160-400) X10*3/uL MPV Immature Gran % (Auto) Neut % (Auto) Lymph % (Auto) [place] % (Auto) Eos % (Auto) Baso % (Auto) Lymph # (Auto) [place] # (Auto) Eos # (Auto) Baso # (Auto) Abs Immat Gran (auto) Absolute Neuts (auto) Absolute Nucleated RBC (0.0-0.012) X10*3/uL Nucleated RBC % (auto) (0.0-0.2) /100WBC Neutrophils % (Manual) (45-73) % Band Neutrophils % (3-5) % Lymphocytes % (Manual) (20-40) % Monocytes % (Manual) (2-11) % Abs Neuts (Manual) (2.0-8.3) X10*3/uL Lymphocytes # (Manual) (1.2-4.9) X10*3/uL Monocytes # (Manual) (0.1-1.2) X10*3/uL Toxic Vacuolation Platelet Estimate (NORMAL) Large Platelets Plt Morphology Comment RBC Morphology Sodium (135-145) mmol/L Potassium (3.3-5.1) mmol/L Chloride (96-108) mmol/L Carbon Dioxide (22-29) mmol/L Anion Gap (12-20) BUN (9-16) mg/dL Creatinine (0.5-1.4) mg/dL Estim Creat Clear Calc Estimated GFR POC Glucose 587 H* 570 H* 543 H* (60-115) mg/dL Random Glucose (60-115) mg/dL Calcium (8.4-10.2) mg/dL Magnesium (1.6-2.6) mg/dL Total Bilirubin (0.0-1.0) mg/dL AST (5-31) U/L ALT (0-31) U/L Alkaline Phosphatase (39-117) U/L Total Creatine Kinase (26-140) U/L Total Protein (6.5-8.0) g/dL Albumin (3.5-5.0) g/dL Lipase (8-78) U/L Beta-Hydroxybutyrate (0.02-0.27) mmol/L Urine Color Urine Appearance Urine pH (5.0-9.0) Ur Specific [place] (1.005-1.025) Urine Protein (Neg-Trace) mg/dL Urine Glucose (UA) (Negative) mg/dL Urine Ketones (Negative) mg/dL Urine Blood (Negative) Urine Nitrite (Negative) Ur Leukocyte Esterase (Negative) Urine RBC (0-2) /HPF Urine WBC (0-5) /HPF Ur Squamous Epith Cells (0-2) /HPF Urine Bacteria (None Seen) Hyaline Casts (0-2) /LPF Urine Yeast Stool Occult Blood (NEGATIVE) COVID-19 ([facility]) (Negative) COVID-19 Clin Com Influenza Type A ([facility]) (Negative) Influenza Type B ([facility]) (Negative) Influenza A & B Note Blood Type Antibody Screen 04/08/23 04/08/23 Range/Units 22:39 23:35 WBC (4.8-10.8) X10*3/uL RBC (4.20-5.50) X10*6/uL Hgb (12.0-16.0) g/dl Hct (37.0-47.0) % MCV (80.0-98.0) fL MCH (27.0-33.0) pg MCHC (31.0-35.0) g/dl RDW (11.0-16.0) % Plt Count (160-400) X10*3/uL MPV Immature Gran % (Auto) Neut % (Auto) Lymph % (Auto) [place] % (Auto) Eos % (Auto) Baso % (Auto) Lymph # (Auto) [place] # (Auto) Eos # (Auto) Baso # (Auto) Abs Immat Gran (auto) Absolute Neuts (auto) Absolute Nucleated RBC (0.0-0.012) X10*3/uL Nucleated RBC % (auto) (0.0-0.2) /100WBC Neutrophils % (Manual) (45-73) % Band Neutrophils % (3-5) % Lymphocytes % (Manual) (20-40) % Monocytes % (Manual) (2-11) % Abs Neuts (Manual) (2.0-8.3) X10*3/uL Lymphocytes # (Manual) (1.2-4.9) X10*3/uL Monocytes # (Manual) (0.1-1.2) X10*3/uL Toxic Vacuolation Platelet Estimate (NORMAL) Large Platelets Plt Morphology Comment RBC Morphology Sodium (135-145) mmol/L Potassium (3.3-5.1) mmol/L Chloride (96-108) mmol/L Carbon Dioxide (22-29) mmol/L Anion Gap (12-20) BUN (9-16) mg/dL Creatinine (0.5-1.4) mg/dL Estim Creat Clear Calc Estimated GFR POC Glucose 486 H* 423 H* (60-115) mg/dL Random Glucose (60-115) mg/dL Calcium (8.4-10.2) mg/dL Magnesium (1.6-2.6) mg/dL Total Bilirubin (0.0-1.0) mg/dL AST (5-31) U/L ALT (0-31) U/L Alkaline Phosphatase (39-117) U/L Total Creatine Kinase (26-140) U/L Total Protein (6.5-8.0) g/dL Albumin (3.5-5.0) g/dL Lipase (8-78) U/L Beta-Hydroxybutyrate (0.02-0.27) mmol/L Urine Color Urine Appearance Urine pH (5.0-9.0) Ur Specific [place]ue (1.005-1.025) Urine Protein (Neg-Trace) mg/dL Urine Glucose (UA) (Negative) mg/dL Urine Ketones (Negative) mg/dL Urine Blood (Negative) Urine Nitrite (Negative) Ur Leukocyte Esterase (Negative) Urine RBC (0-2) /HPF Urine WBC (0-5) /HPF Ur Squamous Epith Cells (0-2) /HPF Urine Bacteria (None Seen) Hyaline Casts (0-2) /LPF Urine Yeast Stool Occult Blood (NEGATIVE) COVID-19 ([facility]) (Negative) COVID-19 Clin Com Influenza Type A ([facility]) (Negative) Influenza Type B ([facility]) (Negative) Influenza A & B Note Blood Type Antibody Screen External Record Review External record reviewed: Inpatient record Prescription Management I considered prescription management with: Pain Medication Chronic Conditions Patient?s care impacted by: Diabetes and Hypertension Critical Care Time Critical Care Time Critical Care Time: Yes Total Critical Care Time: 60 Attestation: Repeat patient assessments, aggressive IV fluids as well as IV insulin. Repeat discussion with the attending, hospitalist for admission Discharge Plan Discharge Clinical Impression: Acute hyperglycemia, ANA (acute kidney injury) Patient Disposition: Admitted As Inpatient
--- NOTE | 2023-04-08 17:27 | PC.NURSE ---
Pt to [facility] via EMS with complaints of unmanagable hyperglycemia. Pt states she has been having n/v for the past several days but has been unable to control her sugars. Complaining of dark emesis. Pt currently endorsing severe cramping leg pain. POC >600 x2. Provider notified. Pt reports that she is a difficult stick, will only allow IV placement in hand. This RN unable, requesting placement by rubber tire and tubes supervisor. TWIN
[2023-04-08] MEDS: 0.9 % Sodium Chloride 1,000 ML 999 ML IV (17:43)
[2023-04-08] MEDS: Insulin Regular, Human 100 UNIT/ML 3 ML VIAL 10 UNIT IVPUSH (17:56)
--- NOTE | 2023-04-08 18:15 | PC.NURSE ---
22g IV to R. Wrist, NS Bolus infusing, medicated per MAR with IV insulin. Pt sleeping between care. Frequent episodes of urination, urine is diluted. Dry mucous membranes, strict NPO at this time per provider. Visibly negative fecal occult, sample sent to lab. Unable to pull labs from IV, requesting straight stick. Pt continues to endorse severe cramping pain in BLE, offers no other complaints at this time. WCTA
--- NOTE | 2023-04-08 18:28 | MHC.EDTECH ---
Patient blood drawn including type and screen ,,urine sample collected and stool card all sent to lab ,vitals taken ,warm blanket given ,Pt sleeping ,Call kendall within Pt reach .reach .
[2023-04-08 18:31] LABS: Hematocrit 40.9 % (37.0-47.0); Hemoglobin 12.6 g/dl (12.0-16.0); Mean Corpuscular HGB Conc 30.8 g/dl (31.0-35.0); Mean Corpuscular Hemoglobin 22.8 pg (27.0-33.0); PLT CLUMP 1; Red Blood Count 5.53 X10*6/uL (4.20-5.50); Red Cell Distribution Width 19.2 % (11.0-16.0)
[2023-04-08 18:32] LABS: OBS Int Ctl Valid YES; OBS1 NEGATIVE (NEGATIVE)
[2023-04-08 18:33] LABS: Appearance Urine Clear; Color Urine Yellow; Glucose Urine UA >=1000 mg/dL (Negative); Leukocyte Esterase Urine Negative (Negative); Nitrite Urine Negative (Negative); PH 6.5 (5.0-9.0); Specific Gravity - Urine >= 1.030 (1.005-1.025); UMIC TRIGGER UA YES; Urine Blood Negative (Negative); Urine Ketones Negative (Negative); Urine Protein Negative (Neg-Trace); WBC ABN SCTR FOR CBC 1
[2023-04-08 18:45] LABS: Beta-Hydroxybutyrate 0.74 mmol/L (0.02-0.27)
[2023-04-08 18:50] LABS: Alanine Aminotransferase 21 U/L (0-31); Albumin Level 4.4 g/dL (3.5-5.0); Alkaline Phosphatase 115 U/L (39-117); Anion Gap 17 (12-20); Aspartate Amino Transferase 12 U/L (5-31); Bilirubin Total 0.5 mg/dL (0.0-1.0); Blood Urea Nitrogen 13 mg/dL (9-16); Calcium 10.1 mg/dL (8.4-10.2); Carbon Dioxide 24 mmol/L (22-29); Chloride 93 mmol/L (96-108); Creatinine Clr Calc Pharmacy 70.3; Estimated Glomerular Filt Rate 36; Lipase 15 U/L (8-78); Magnesium 2.6 mg/dL (1.6-2.6); Potassium 5.2 mmol/L (3.3-5.1); Sodium 129 mmol/L (135-145); Total Protein 8.7 g/dL (6.5-8.0)
[2023-04-08 18:57] LABS: Glucose Random 957 mg/dL (60-115)
[2023-04-08 19:03] LABS: Band Neutrophils Percent 0 % (3-5); Lymphocytes Percent Manual 33 % (20-40); Monocytes Percent Manual 5 % (2-11); Neutrophils Percent Manual 62 % (45-73); RBC Morphology NORMAL
[2023-04-08 19:05] LABS: Large Platelet PRESENT; Platelet Estimate SLIGHTLY INCREASED (NORMAL); Platelet Morphology Comment NOTED; Toxic Vacuolation PRESENT
[2023-04-08 19:06] LABS: Lymphocytes Absolute Manual 3.4 X10*3/uL (1.2-4.9); Monocytes Absolute Manual 0.5 X10*3/uL (0.1-1.2); Neutrophils Absolute Manual 6.4 X10*3/uL (2.0-8.3); Platelet Count 224 X10*3/uL (160-400); White Blood Count 10.3 X10*3/uL (4.8-10.8)
[2023-04-08 19:09] LABS: Bacteria Urine None Seen (None Seen); Hyaline Casts Urine 0-2 /LPF (0-2); RBC Urine 0-2 /HPF (0-2); Squamous Epithelial Cell Urine 0-2 /HPF (0-2)
--- NOTE | 2023-04-08 19:14 | PC.NURSE ---
Assumed care of pt. Pt up and ambulating into bathroom to urinate. IV in place, IVF running.Assessment as charted.
--- NOTE | 2023-04-08 19:15 | PC.NURSE ---
Pt endorsing lethargy, frequent urination, cramps in legs.
[2023-04-08] MEDS: 0.9 % Sodium Chloride 3,000 ML 999 ML IV (19:21)
--- NOTE | 2023-04-08 19:52 | MHC.EDTECH ---
This tech took over care of patient at 1900,hourly rounds and vitals completed. labs,Covid,and Flu obtained and sent to lab. Patient's POC is 542 Naldo JASMINE made aware.Call kendall in reach
[2023-04-08 19:58] LABS: Glucose, Whole Blood 542 mg/dL (60-115)
--- NOTE | 2023-04-08 20:14 | MHC.EDTECH ---
Blood Sugar taken @ 2009 and is 587,Naldo JASMINE aware
[2023-04-08 20:17] LABS: IDNOW Serial# 152EDE1D; IDNOW Serial# 9DB6401D; Influenza A Negative (Negative); Influenza B2 Negative (Negative)
[2023-04-08 20:18] LABS: COVID-19 Test Negative (Negative)
[2023-04-08 20:22] LABS: Glucose, Whole Blood 587 mg/dL (60-115)
--- NOTE | 2023-04-08 20:45 | MHC.EDTECH ---
Blood Sugar taken @ 2039 and is 570,Naldo JASMINE aware, Patient ambulated to the bathroom with a steady gait,urinated a large amount.
[2023-04-08 20:47] LABS: Glucose, Whole Blood 570 mg/dL (60-115)
--- NOTE | 2023-04-08 21:41 | MHC.EDTECH ---
Blood Sugar taken @ 2139,and is 543 Kike BARKSDALE made aware,and Naldo JASMINE
[2023-04-08 21:45] LABS: Glucose, Whole Blood 543 mg/dL (60-115)
--- NOTE | 2023-04-08 22:41 | MHC.EDTECH ---
Hourly rounds and vitals completed,Blood sugar taken and is 486, Naldo JASMINE aware, Ice chips giving and patient is resting at this time.Call kendall in reach
[2023-04-08 22:46] LABS: Glucose, Whole Blood 486 mg/dL (60-115)
--- NOTE | 2023-04-08 22:57 | PC.NURSE ---
IVF still running d/t pt positioning
[2023-04-08] MEDS: Insulin Glargine,Hum.rec.anlog 100 UNIT/ML 10 ML VIAL 20.55 UNIT SUBCUT (23:13)
--- NOTE | 2023-04-08 23:39 | MHC.EDTECH ---
Hourly rounds and vitals completed,POC taken and is 423 ,Naldo RN made aware. Belonging list completed and copy placed in chart. Call kendall in reach
[2023-04-08 23:42] LABS: Glucose, Whole Blood 423 mg/dL (60-115)
[2023-04-09 00:46] LABS: Glucose, Whole Blood 478 mg/dL (60-115)
[2023-04-09] MEDS: 0.9 % Sodium Chloride 1,000 ML 125 ML IVCONT ×2 (00:49→09:28)
--- NOTE | 2023-04-09 00:50 | MHC.EDTECH ---
POC taken @ 0040 and is 478,Naldo RN made aware. Patient placed on the gambling monitor per hospitalist order.
--- NOTE | 2023-04-09 02:21 | MHC.EDTECH ---
Hourly rounds completed, patient is sleeping and resp.rate WNL,call kendall in reach
--- NOTE | 2023-04-09 02:57 | MHC.EDTECH ---
Blood Sugar taken and is 456 RN Naldo made aware
[2023-04-09 03:02] LABS: Glucose, Whole Blood 456 mg/dL (60-115)
--- NOTE | 2023-04-09 03:25 | PC.NURSE ---
Sent [place] Text to ivette BROWN regarding stall of pt glucose in 400's. Pending reply.
[2023-04-09] MEDS: Insulin Regular, Human 100 UNIT/ML 3 ML VIAL 10 UNIT IVPUSH (03:38)
--- NOTE | 2023-04-09 04:04 | P.HPHOSP_ITS ---
History of Present Illness Date of Service: 04/09/23 Attending physician on admission: Juan Miguel Olsen Chief Complaint: Generalized abdominal pain. Reba Sofia is a 42 years old woman with past medical history significant for type 2 diabetes on metformin and Trulicity, morbid obesity, GERD, asthma and hyperlipidemia presents to the emergency department complaining of generalized abdominal pain nausea, and vomiting (dark). She also complained of urinary frequency, thirstiness and dry mouth. She also mentioned that she has vaginal infection. He had headache, cough, fever, chills, dizziness or palpitations. She denies any cardiopulmonary symptoms. She denies tobacco smoking, alcohol abuse or illicit drug use. Patient admits that she is noncompliant with her home medications. Patient was unable to recall the names of all her medications. In the ED, she was found to have stable vital signs. There is no fever and her oxygen saturation is normal on room air. Her glucose was initially found to be 957 and hyperkalemia. Her creatinine is elevated, 1.57 (it was normal before). Bicarb is normal. Lipase is normal. Total CK is slightly elevated. Viral testing for influenza and COVID-19 is negative. ED tx: Patient received a total 4 L of normal saline. Insulin R 10 units IV x1. Lantus 20 units subQ once. [facility] Medical History History of gastroesophageal reflux (GERD) Substance abuse Vitamin D deficiency Obesity due to excess calories Type 2 diabetes mellitus with chronic kidney disease Diabetes type 2, uncontrolled Hyperlipidemia LDL goal <100 Diabetes Hypertension Asthma Family History Mother Diabetes Maternal Grandmother Diabetes Maternal Aunt Diabetes Hypertension Father No problems noted. Surgical History Hx of section Hx of splenectomy Social History Household Members: Other Household Members Other:: roommate Housing Other:: Hose for woman Do you presently have visiting nurse or other home services: No Unable to assess alcohol history related to: Unknown Alcohol intake: never Patient Tobacco Use Status: Never used Tobacco Cigarettes Per Day: 6 Years Smoked: 30 Smoked in Last 30 Days: Yes Second Hand Smoke Exposure: Yes Use of substances other than those prescribed or required for medical reasons: Refusing to respond Advance Directives: No Advance Directives Information Provided: No Nutrition Risks: Diabetes new onset/Uncontrolled Patient : No service: No Current occupational status: unemployed Meds Allergies Allergy/AdvReac Type Severity Reaction Status Date / Time ibuprofen [From Motrin] Allergy Anaphylaxis Verified 04/08/23 16:41 morphine Allergy Hives Verified 04/08/23 16:41 Active Medications: Current Medications Acetaminophen (Acetaminophen 325 Mg Tablet) 975 mg PO Q6H PRN PRN Reason: Pain, Mild (Pain Scale 1-3) Clotrimazole (Clotrimazole 1 % Vaginal Cream 45 Gm Tube) 1 appl VAGINAL BEDTIME [facility] Stop: 04/14/23 21:01 Dextrose (Dextrose 50 % 25 Gm/50 Ml Syringe) 25 gm IVPUSH Q15M PRN; Protocol PRN Reason: per Hypoglycemia Standing Ord. Glucose (Glucose Gel 15 Gm Gel..Gram.) 15 gm PO Q15M PRN; Protocol PRN Reason: per Hypoglycemia Standing Ord. Heparin Sodium (Porcine) (Heparin Sodium,Porcine 5,000 Unit/Ml Vial) 5,000 unit SUBCUT Q8H [facility] Sodium Chloride (Ns) 1,000 mls @ 125 mls/hr IVCONT .Q8H [facility] Last Admin: 04/09/23 00:49 Dose: 125 mls/hr Insulin Glargine (Insulin Glargine,Hum.Rec.Anlog 100 Unit/Ml 10 Ml Vial) 20 unit SUBCUT BEDTIME [facility] Insulin Human Lispro (Insulin Lispro 100 Unit/Ml 3 Ml Vial) 0 unit SUBCUT QIDACHS [facility]; Protocol Ondansetron HCl (Ondansetron Hcl 4 Mg/2 Ml Vial) 4 mg IVPUSH Q8H PRN PRN Reason: Nausea and Vomiting Pantoprazole Sodium (Pantoprazole Sodium 40 Mg/10 Ml Vial) 40 mg IVPUSH DAILY [facility] Sodium Chloride (0.9 % Sodium Chloride Flush 3 Ml Syringe) 3 ml IVFLUSH QSHIFT [facility] Home Medications Medication Instructions Recorded Confirmed Last Taken Type ergocalciferol (vitamin D2) 1,250 1,250 mcg PO QWEEK 10/16/20 04/23/22 Unknown History mcg (50,000 unit) capsule gabapentin 100 mg capsule 100 mg PO TID 10/16/20 04/23/22 Unknown History melatonin 10 mg capsule 10 mg PO BEDTIME PRN Insomnia 10/16/20 04/23/22 Unknown History risperidone 2 mg tablet 2 mg PO DAILY 10/16/20 04/23/22 Unknown History sertraline 100 mg tablet (Zoloft) 100 mg PO DAILY 10/16/20 04/23/22 Unknown History topiramate 25 mg sprinkle capsule 25 mg PO BEDTIME 10/16/20 04/23/22 Unknown History (Topamax) chlorpromazine 100 mg tablet 1 tab PO BEDTIME 04/22/22 04/23/22 Unknown History hydroxyzine pamoate 25 mg capsule 25 mg PO BID PRN Anxiety 04/22/22 04/23/22 Unknown History prazosin 1 mg capsule 1 cap PO BEDTIME 04/22/22 04/23/22 Unknown History buspirone 15 mg tablet 15 mg PO BID 04/23/22 04/23/22 Unknown History dulaglutide 0.75 mg/0.5 mL 0.75 mg subcut SALAZAR 04/23/22 04/23/22 Unknown History subcutaneous pen injector (Trulicity) insulin degludec 200 unit/mL (3 56 unit subcut BEDTIME 04/23/22 04/23/22 Unknown History mL) subcutaneous pen (Tresiba FlexTouch U-200 insulin) insulin lispro 100 unit/mL 0 sliding scale dose subcut QIDACHS 04/23/22 04/23/22 Unknown History subcutaneous pen (Humalog KwikPen (U-100) Insulin) metformin 500 mg tablet,extended 500 mg PO DAILY@1730 04/23/22 04/23/22 Unknown History release 24hr (osmotic) pantoprazole 40 mg tablet,delayed 40 mg PO DAILY 04/23/22 04/23/22 Unknown History release quetiapine 100 mg tablet 100 mg PO BEDTIME 04/23/22 04/23/22 Unknown History Physical Exam 2 Vital Signs and Narrative: Vital Signs: Last Vital Signs Temp 98.3 F 04/08/23 23:30 Pulse 90 04/08/23 23:30 Resp 18 04/08/23 23:30 BP 134/79 04/08/23 23:30 Pulse Ox 97 04/08/23 23:30 O2 Del Method Room Air 04/08/23 23:30 BMI result Body Mass Index 41.4 Constitutional - Awake and Alert, no acute distress. Acutely ill. Cooperative. Obese. HEENT - atraumatic head. Normocephalic. Dry mouth. Cardiovascular - S1S2, RRR, No edema Respiratory - Normal lung expansion, Normal respiratory effort, No respiratory distress, CTA bilaterally Gastrointestinal - increased bowel sounds. Soft. Generalized abdominal discomfort. No rebound. No guarding. Extremities - No calf tenderness bilaterally, no swelling Musculoskeletal - Normal inspection, normal ROM Skin - Warm/Dry Neurological - Alert & oriented x3. Psychological - Appropriate affect Results Labs 04/08/23 18:20 04/08/23 18:20 Labs: Laboratory Results - last 24 hr 04/08/23 04/08/23 04/08/23 16:45 16:50 18:19 MCV MCH MCHC RDW Plt Count MPV Immature Gran % (Auto) Neut % (Auto) Lymph % (Auto) [place] % (Auto) Eos % (Auto) Baso % (Auto) Lymph # (Auto) [place] # (Auto) Eos # (Auto) Baso # (Auto) Abs Immat Gran (auto) Absolute Neuts (auto) Absolute Nucleated RBC Nucleated RBC % (auto) Neutrophils % (Manual) Band Neutrophils % Lymphocytes % (Manual) Monocytes % (Manual) Abs Neuts (Manual) Lymphocytes # (Manual) Monocytes # (Manual) Toxic Vacuolation Platelet Estimate Large Platelets Plt Morphology Comment RBC Morphology Anion Gap Estim Creat Clear Calc Estimated GFR POC Glucose > 600 H* > 600 H* Random Glucose Calcium Magnesium Total Bilirubin AST ALT Alkaline Phosphatase Total Creatine Kinase Total Protein Albumin Lipase Beta-Hydroxybutyrate Urine Color Urine Appearance Urine pH Ur Specific [place] Urine Protein Urine Glucose (UA) Urine Ketones Urine Blood Urine Nitrite Ur Leukocyte Esterase Urine RBC Urine WBC Ur Squamous Epith Cells Urine Bacteria Hyaline Casts Urine Yeast Stool Occult Blood COVID-19 ([facility]) COVID-19 Clin Com Influenza Type A ([facility]) Influenza Type B ([facility]) Influenza A & B Note Blood Type O Positive Antibody Screen NEGATIVE 04/08/23 04/08/23 04/08/23 18:20 19:38 19:51 MCV 74.0 L MCH 22.8 L MCHC 30.8 L RDW 19.2 H Plt Count 224 D MPV Not Reportable Immature Gran % (Auto) Cancelled Neut % (Auto) Cancelled Lymph % (Auto) Cancelled [place] % (Auto) Cancelled Eos % (Auto) Cancelled Baso % (Auto) Cancelled Lymph # (Auto) Cancelled [place] # (Auto) Cancelled Eos # (Auto) Cancelled Baso # (Auto) Cancelled Abs Immat Gran (auto) Cancelled Absolute Neuts (auto) Cancelled Absolute Nucleated RBC 0.000 Nucleated RBC % (auto) 0.0 Neutrophils % (Manual) 62 Band Neutrophils % 0 L Lymphocytes % (Manual) 33 Monocytes % (Manual) 5 Abs Neuts (Manual) 6.4 Lymphocytes # (Manual) 3.4 Monocytes # (Manual) 0.5 Toxic Vacuolation PRESENT Platelet Estimate SLIGHTLY INCREASED Large Platelets PRESENT Plt Morphology Comment NOTED RBC Morphology NORMAL Anion Gap 17 Estim Creat Clear Calc 70.3 Estimated GFR 36 POC Glucose 542 H* Random Glucose 957 H* Calcium 10.1 Magnesium 2.6 Total Bilirubin 0.5 AST 12 ALT 21 Alkaline Phosphatase 115 Total Creatine Kinase 146 H Total Protein 8.7 H Albumin 4.4 Lipase 15 Beta-Hydroxybutyrate 0.74 H Urine Color Yellow Urine Appearance Clear Urine pH 6.5 Ur Specific [place] >= 1.030 H Urine Protein Negative Urine Glucose (UA) >=1000 H Urine Ketones Negative Urine Blood Negative Urine Nitrite Negative Ur Leukocyte Esterase Negative Urine RBC 0-2 Urine WBC 6-10 H Ur Squamous Epith Cells 0-2 Urine Bacteria None Seen Hyaline Casts 0-2 Urine Yeast Present Stool Occult Blood NEGATIVE COVID-19 ([facility]) Negative COVID-19 Clin Com See Note Influenza Type A ([facility]) Negative Influenza Type B ([facility]) Negative Influenza A & B Note See Note Blood Type Antibody Screen 04/08/23 04/08/23 04/08/23 20:10 20:40 21:40 MCV MCH MCHC RDW Plt Count MPV Immature Gran % (Auto) Neut % (Auto) Lymph % (Auto) [place] % (Auto) Eos % (Auto) Baso % (Auto) Lymph # (Auto) [place] # (Auto) Eos # (Auto) Baso # (Auto) Abs Immat Gran (auto) Absolute Neuts (auto) Absolute Nucleated RBC Nucleated RBC % (auto) Neutrophils % (Manual) Band Neutrophils % Lymphocytes % (Manual) Monocytes % (Manual) Abs Neuts (Manual) Lymphocytes # (Manual) Monocytes # (Manual) Toxic Vacuolation Platelet Estimate Large Platelets Plt Morphology Comment RBC Morphology Anion Gap Estim Creat Clear Calc Estimated GFR POC Glucose 587 H* 570 H* 543 H* Random Glucose Calcium Magnesium Total Bilirubin AST ALT Alkaline Phosphatase Total Creatine Kinase Total Protein Albumin Lipase Beta-Hydroxybutyrate Urine Color Urine Appearance Urine pH Ur Specific [place] Urine Protein Urine Glucose (UA) Urine Ketones Urine Blood Urine Nitrite Ur Leukocyte Esterase Urine RBC Urine WBC Ur Squamous Epith Cells Urine Bacteria Hyaline Casts Urine Yeast Stool Occult Blood COVID-19 ([facility]) COVID-19 Clin Com Influenza Type A ([facility]) Influenza Type B ([facility]) Influenza A & B Note Blood Type Antibody Screen 04/08/23 04/08/23 04/09/23 22:39 23:35 00:40 MCV MCH MCHC RDW Plt Count MPV Immature Gran % (Auto) Neut % (Auto) Lymph % (Auto) [place] % (Auto) Eos % (Auto) Baso % (Auto) Lymph # (Auto) [place] # (Auto) Eos # (Auto) Baso # (Auto) Abs Immat Gran (auto) Absolute Neuts (auto) Absolute Nucleated RBC Nucleated RBC % (auto) Neutrophils % (Manual) Band Neutrophils % Lymphocytes % (Manual) Monocytes % (Manual) Abs Neuts (Manual) Lymphocytes # (Manual) Monocytes # (Manual) Toxic Vacuolation Platelet Estimate Large Platelets Plt Morphology Comment RBC Morphology Anion Gap Estim Creat Clear Calc Estimated GFR POC Glucose 486 H* 423 H* 478 H* Random Glucose Calcium Magnesium Total Bilirubin AST ALT Alkaline Phosphatase Total Creatine Kinase Total Protein Albumin Lipase Beta-Hydroxybutyrate Urine Color Urine Appearance Urine pH Ur Specific [place] Urine Protein Urine Glucose (UA) Urine Ketones Urine Blood Urine Nitrite Ur Leukocyte Esterase Urine RBC Urine WBC Ur Squamous Epith Cells Urine Bacteria Hyaline Casts Urine Yeast Stool Occult Blood COVID-19 ([facility]) COVID-19 Clin Com Influenza Type A ([facility]) Influenza Type B ([facility]) Influenza A & B Note Blood Type Antibody Screen 04/09/23 02:55 MCV MCH MCHC RDW Plt Count MPV Immature Gran % (Auto) Neut % (Auto) Lymph % (Auto) [place] % (Auto) Eos % (Auto) Baso % (Auto) Lymph # (Auto) [place] # (Auto) Eos # (Auto) Baso # (Auto) Abs Immat Gran (auto) Absolute Neuts (auto) Absolute Nucleated RBC Nucleated RBC % (auto) Neutrophils % (Manual) Band Neutrophils % Lymphocytes % (Manual) Monocytes % (Manual) Abs Neuts (Manual) Lymphocytes # (Manual) Monocytes # (Manual) Toxic Vacuolation Platelet Estimate Large Platelets Plt Morphology Comment RBC Morphology Anion Gap Estim Creat Clear Calc Estimated GFR POC Glucose 456 H* Random Glucose Calcium Magnesium Total Bilirubin AST ALT Alkaline Phosphatase Total Creatine Kinase Total Protein Albumin Lipase Beta-Hydroxybutyrate Urine Color Urine Appearance Urine pH Ur Specific [place] Urine Protein Urine Glucose (UA) Urine Ketones Urine Blood Urine Nitrite Ur Leukocyte Esterase Urine RBC Urine WBC Ur Squamous Epith Cells Urine Bacteria Hyaline Casts Urine Yeast Stool Occult Blood COVID-19 ([facility]) COVID-19 Clin Com Influenza Type A ([facility]) Influenza Type B ([facility]) Influenza A & B Note Blood Type Antibody Screen Assessment and Plan (1) ANA (acute kidney injury): Status: Acute (2) Acute hyperglycemia: Status: Acute Plan Reba Sofia is a 42 years old woman admitted with: * Uncontrolled type 2 diabetes mellitus. Admit to hospitalist service. Continue therapy with IV fluids. Continue treatment with Lantus 20 units subQ at bedtime and insulin sliding scale. Continue Trulicity weekly (). Check hemoglobin A1c. * Acute kidney injury likely prerenal due to vomiting and increase urinary frequency. Continue IV fluids. Continue to monitor renal function. Avoid nephrotoxic agents. * Nausea and vomiting possible secondary to gastritis/history of GERD. MPO. Start treatment with Protonix IV. Zofran as needed. Continue IV fluids. * Mild hyperkalemia. Patient has been receiving insulin R IV. We will continue to monitor potassium level. * Elevated CK, minimal. No rhabdomyolysis. Recheck CK in the morning. * Infection infection, likely candidiasis. Clotrimazole cream for 7 days. * Essential hypertension. Patient not taking medication for this. Continue to monitor blood pressure for now as it is normal. * Asthma, asymptomatic. * Pseudohyponatremia. Corrected sodium is 140. * Hyperlipidemia. Taking statins? * Morbid obesity, BMI 41.4 kg/M2. Lifestyle modifications and exercise. Dietary consult. DVT prophylaxis: Heparin subcut Code status: Full Patient would need hospitalization for at least 2 midnights for uncontrolled diabetes/severe hyperglycemia treatment. Patient will need therapy with insulin and IV fluids. Quality Stroke Does the patient have a stroke diagnosis?: No VTE Prior VTE?: No VTE Risk Level:: Medical - moderate - high VTE Device Contraindication: Treatment Not Indicated VTE Drug Contraindication: Treatment Not Indicated
--- NOTE | 2023-04-09 04:26 | MHC.EDTECH ---
Hourly rounds completed, patient ambulated to the bathroom with a steady gait. Call kendall within reach
--- NOTE | 2023-04-09 04:33 | MHC.EDTECH ---
Blood sugar taken and is 341 Naldo RN made aware, Ice chips giving per request of patient. call kendall at bedside
[2023-04-09 04:38] LABS: Glucose, Whole Blood 341 mg/dL (60-115)
[2023-04-09 05:52] VITALS: BP 123/78; PULSE 88; RESP 16; TEMP 36.7; O2SAT 97
--- NOTE | 2023-04-09 05:53 | MHC.EDTECH ---
Hourly rounds and vitals completed,patient ambulated to bathroom,patient is resting comfortably at this time and call kendall within reach.
[2023-04-09 07:09] LABS: Glucose, Whole Blood 358 mg/dL (60-115)
[2023-04-09] MEDS: Insulin Lispro 100 UNIT/ML 3 ML VIAL SUBCUT ×8 (07:37→22:16)
[2023-04-09] MEDS: Insulin Glargine,Hum.rec.anlog 100 UNIT/ML 10 ML VIAL 10 UNIT SUBCUT (07:38)
[2023-04-09] MEDS: Pantoprazole Sodium 40 MG/10 ML VIAL IVPUSH (07:57)
[2023-04-09] MEDS: Clotrimazole 1 % Vaginal Cream 45 GM TUBE 1 APPL VAGINAL ×2 (09:41→22:22)
--- NOTE | 2023-04-09 09:51 | PHA.MEDREC ---
Addendum entered by Thang Gooden 04/11/23 11:25: called [facility] 4 times this morning and no answer. Left a voicemail. Addendum entered by Iris Oconnor [facility] 04/09/23 11:12: Spoke with amina cha regarding incomplete med rec. patient may be discharged today but if not will follow up on tuesday with contacting [facility] Original Note: Pharmacy Consult ? Medication Reconciliation Pharmacy has completed the medication reconciliation. Pt poor historian of medications. Patient noncompliant with medications. Patient gets prescriptions at [facility], but unable to contact due to it being the weekend and they are closed. Asked pt if they have someone that could be contacted regarding meds, patient says no. Confirmed meds with claim history from [facility], but unable to confirm meds from [facility]. Pharmacy will have to follow up with [facility] on Tuesday if patient is still here.
--- NOTE | 2023-04-09 10:13 | P.PNIM_ITS ---
Subjective Subjective Date of Service: 04/09/23 Interval History: Seen in follow up for hyperglycemia, ana Interval history: Seen and examined, admitted early this morning. She is hungry, no other complaints Review of Systems Review of Systems: Yes all other systems are reviewed and are negative Physical Exam 2 Vital Signs: Vital Signs: Last Vital Signs Temp 98.1 F 04/09/23 05:52 Pulse 88 04/09/23 05:52 Resp 16 04/09/23 05:52 BP 123/78 04/09/23 05:52 Pulse Ox 97 04/09/23 05:52 O2 Del Method Room Air 04/09/23 05:52 BMI result Body Mass Index 41.4 Constitutional - Awake and Alert, No apparent distress Eyes - PERRLA, EOMI Cardiovascular - S1S2, RRR, No edema Respiratory - Normal lung expansion, Normal respiratory effort, No respiratory distress, CTA bilaterally Gastrointestinal - NT / ND; +BS; No rebound or guarding Extremities - no calf tenderness bilaterally, no swelling Skin - Warm/Dry Neurological - Alert & oriented x3 Psychological - Appropriate affect Objective Data Active Medications Acetaminophen (Acetaminophen 325 Mg Tablet) 975 mg PO Q6H PRN PRN Reason: Pain, Mild (Pain Scale 1-3) Clotrimazole (Clotrimazole 1 % Vaginal Cream 45 Gm Tube) 1 appl VAGINAL BEDTIME [facility] Stop: 04/14/23 21:01 Last Admin: 04/09/23 09:41 Dose: 1 appl Documented By: RANGEL Dextrose (Dextrose 50 % 25 Gm/50 Ml Syringe) 25 gm IVPUSH Q15M PRN; Protocol PRN Reason: per Hypoglycemia Standing Ord. Glucose (Glucose Gel 15 Gm Gel..Gram.) 15 gm PO Q15M PRN; Protocol PRN Reason: per Hypoglycemia Standing Ord. Heparin Sodium (Porcine) (Heparin Sodium,Porcine 5,000 Unit/Ml Vial) 5,000 unit SUBCUT Q8H [facility] Last Admin: 04/09/23 07:39 Dose: Not Given Documented By: RANGEL Non-Admin Reason: Patient Refused Sodium Chloride (Ns) 1,000 mls @ 125 mls/hr IVCONT .Q8H [facility] Last Admin: 04/09/23 09:28 Dose: 125 mls/hr Documented By: RANGEL Insulin Glargine (Insulin Glargine,Hum.Rec.Anlog 100 Unit/Ml 10 Ml Vial) 20 unit SUBCUT BEDTIME [facility] Insulin Glargine (Insulin Glargine,Hum.Rec.Anlog 100 Unit/Ml 10 Ml Vial) 10 unit SUBCUT DAILY [facility] Last Admin: 04/09/23 07:38 Dose: 10 unit Documented By: RANGEL Insulin Human Lispro (Insulin Lispro 100 Unit/Ml 3 Ml Vial) 0 unit SUBCUT Q6H [facility]; Protocol Last Admin: 04/09/23 07:37 Dose: 10 unit Documented By: RANGEL Insulin Human Lispro (Insulin Lispro 100 Unit/Ml 3 Ml Vial) 5 unit SUBCUT QIDACHS [facility] Last Admin: 04/09/23 07:37 Dose: 5 unit Documented By: RANGEL Ondansetron HCl (Ondansetron Hcl 4 Mg/2 Ml Vial) 4 mg IVPUSH Q8H PRN PRN Reason: Nausea and Vomiting Pantoprazole Sodium (Pantoprazole Sodium 40 Mg/10 Ml Vial) 40 mg IVPUSH DAILY [facility] Last Admin: 04/09/23 07:57 Dose: 40 mg Documented By: RANGEL Sodium Chloride (0.9 % Sodium Chloride Flush 3 Ml Syringe) 3 ml IVFLUSH QSHIFT [facility] Last Admin: 04/09/23 07:50 Dose: Not Given Documented By: RANGEL Non-Admin Reason: IV Running Labs 04/09/23 13:15 04/09/23 13:15 Labs: Laboratory Results - last 24 hr 04/08/23 04/08/23 04/08/23 16:45 16:50 18:19 MCV MCH MCHC RDW Plt Count MPV Immature Gran % (Auto) Neut % (Auto) Lymph % (Auto) [place] % (Auto) Eos % (Auto) Baso % (Auto) Lymph # (Auto) [place] # (Auto) Eos # (Auto) Baso # (Auto) Abs Immat Gran (auto) Absolute Neuts (auto) Absolute Nucleated RBC Nucleated RBC % (auto) Neutrophils % (Manual) Band Neutrophils % Lymphocytes % (Manual) Monocytes % (Manual) Abs Neuts (Manual) Lymphocytes # (Manual) Monocytes # (Manual) Toxic Vacuolation Platelet Estimate Large Platelets Plt Morphology Comment RBC Morphology Anion Gap Estim Creat Clear Calc Estimated GFR POC Glucose > 600 H* > 600 H* Random Glucose Calcium Magnesium Total Bilirubin AST ALT Alkaline Phosphatase Total Creatine Kinase Total Protein Albumin Lipase Beta-Hydroxybutyrate Urine Color Urine Appearance Urine pH Ur Specific [place] Urine Protein Urine Glucose (UA) Urine Ketones Urine Blood Urine Nitrite Ur Leukocyte Esterase Urine RBC Urine WBC Ur Squamous Epith Cells Urine Bacteria Hyaline Casts Urine Yeast Stool Occult Blood COVID-19 ([facility]) COVID-19 Clin Com Influenza Type A ([facility]) Influenza Type B ([facility]) Influenza A & B Note Blood Type O Positive Antibody Screen NEGATIVE 04/08/23 04/08/23 04/08/23 18:20 19:38 19:51 MCV 74.0 L MCH 22.8 L MCHC 30.8 L RDW 19.2 H Plt Count 224 D MPV Not Reportable Immature Gran % (Auto) Cancelled Neut % (Auto) Cancelled Lymph % (Auto) Cancelled [place] % (Auto) Cancelled Eos % (Auto) Cancelled Baso % (Auto) Cancelled Lymph # (Auto) Cancelled [place] # (Auto) Cancelled Eos # (Auto) Cancelled Baso # (Auto) Cancelled Abs Immat Gran (auto) Cancelled Absolute Neuts (auto) Cancelled Absolute Nucleated RBC 0.000 Nucleated RBC % (auto) 0.0 Neutrophils % (Manual) 62 Band Neutrophils % 0 L Lymphocytes % (Manual) 33 Monocytes % (Manual) 5 Abs Neuts (Manual) 6.4 Lymphocytes # (Manual) 3.4 Monocytes # (Manual) 0.5 Toxic Vacuolation PRESENT Platelet Estimate SLIGHTLY INCREASED Large Platelets PRESENT Plt Morphology Comment NOTED RBC Morphology NORMAL Anion Gap 17 Estim Creat Clear Calc 70.3 Estimated GFR 36 POC Glucose 542 H* Random Glucose 957 H* Calcium 10.1 Magnesium 2.6 Total Bilirubin 0.5 AST 12 ALT 21 Alkaline Phosphatase 115 Total Creatine Kinase 146 H Total Protein 8.7 H Albumin 4.4 Lipase 15 Beta-Hydroxybutyrate 0.74 H Urine Color Yellow Urine Appearance Clear Urine pH 6.5 Ur Specific [place] >= 1.030 H Urine Protein Negative Urine Glucose (UA) >=1000 H Urine Ketones Negative Urine Blood Negative Urine Nitrite Negative Ur Leukocyte Esterase Negative Urine RBC 0-2 Urine WBC 6-10 H Ur Squamous Epith Cells 0-2 Urine Bacteria None Seen Hyaline Casts 0-2 Urine Yeast Present Stool Occult Blood NEGATIVE COVID-19 ([facility]) Negative COVID-19 Clin Com See Note Influenza Type A ([facility]) Negative Influenza Type B ([facility]) Negative Influenza A & B Note See Note Blood Type Antibody Screen 04/08/23 04/08/23 04/08/23 20:10 20:40 21:40 MCV MCH MCHC RDW Plt Count MPV Immature Gran % (Auto) Neut % (Auto) Lymph % (Auto) [place] % (Auto) Eos % (Auto) Baso % (Auto) Lymph # (Auto) [place] # (Auto) Eos # (Auto) Baso # (Auto) Abs Immat Gran (auto) Absolute Neuts (auto) Absolute Nucleated RBC Nucleated RBC % (auto) Neutrophils % (Manual) Band Neutrophils % Lymphocytes % (Manual) Monocytes % (Manual) Abs Neuts (Manual) Lymphocytes # (Manual) Monocytes # (Manual) Toxic Vacuolation Platelet Estimate Large Platelets Plt Morphology Comment RBC Morphology Anion Gap Estim Creat Clear Calc Estimated GFR POC Glucose 587 H* 570 H* 543 H* Random Glucose Calcium Magnesium Total Bilirubin AST ALT Alkaline Phosphatase Total Creatine Kinase Total Protein Albumin Lipase Beta-Hydroxybutyrate Urine Color Urine Appearance Urine pH Ur Specific [place] Urine Protein Urine Glucose (UA) Urine Ketones Urine Blood Urine Nitrite Ur Leukocyte Esterase Urine RBC Urine WBC Ur Squamous Epith Cells Urine Bacteria Hyaline Casts Urine Yeast Stool Occult Blood COVID-19 ([facility]) COVID-19 Clin Com Influenza Type A ([facility]) Influenza Type B ([facility]) Influenza A & B Note Blood Type Antibody Screen 04/08/23 04/08/23 04/09/23 22:39 23:35 00:40 MCV MCH MCHC RDW Plt Count MPV Immature Gran % (Auto) Neut % (Auto) Lymph % (Auto) [place] % (Auto) Eos % (Auto) Baso % (Auto) Lymph # (Auto) [place] # (Auto) Eos # (Auto) Baso # (Auto) Abs Immat Gran (auto) Absolute Neuts (auto) Absolute Nucleated RBC Nucleated RBC % (auto) Neutrophils % (Manual) Band Neutrophils % Lymphocytes % (Manual) Monocytes % (Manual) Abs Neuts (Manual) Lymphocytes # (Manual) Monocytes # (Manual) Toxic Vacuolation Platelet Estimate Large Platelets Plt Morphology Comment RBC Morphology Anion Gap Estim Creat Clear Calc Estimated GFR POC Glucose 486 H* 423 H* 478 H* Random Glucose Calcium Magnesium Total Bilirubin AST ALT Alkaline Phosphatase Total Creatine Kinase Total Protein Albumin Lipase Beta-Hydroxybutyrate Urine Color Urine Appearance Urine pH Ur Specific [place] Urine Protein Urine Glucose (UA) Urine Ketones Urine Blood Urine Nitrite Ur Leukocyte Esterase Urine RBC Urine WBC Ur Squamous Epith Cells Urine Bacteria Hyaline Casts Urine Yeast Stool Occult Blood COVID-19 ([facility]) COVID-19 Clin Com Influenza Type A ([facility]) Influenza Type B ([facility]) Influenza A & B Note Blood Type Antibody Screen 04/09/23 04/09/23 04/09/23 02:55 04:31 07:06 MCV MCH MCHC RDW Plt Count MPV Immature Gran % (Auto) Neut % (Auto) Lymph % (Auto) [place] % (Auto) Eos % (Auto) Baso % (Auto) Lymph # (Auto) [place] # (Auto) Eos # (Auto) Baso # (Auto) Abs Immat Gran (auto) Absolute Neuts (auto) Absolute Nucleated RBC Nucleated RBC % (auto) Neutrophils % (Manual) Band Neutrophils % Lymphocytes % (Manual) Monocytes % (Manual) Abs Neuts (Manual) Lymphocytes # (Manual) Monocytes # (Manual) Toxic Vacuolation Platelet Estimate Large Platelets Plt Morphology Comment RBC Morphology Anion Gap Estim Creat Clear Calc Estimated GFR POC Glucose 456 H* 341 H 358 H* Random Glucose Calcium Magnesium Total Bilirubin AST ALT Alkaline Phosphatase Total Creatine Kinase Total Protein Albumin Lipase Beta-Hydroxybutyrate Urine Color Urine Appearance Urine pH Ur Specific [place] Urine Protein Urine Glucose (UA) Urine Ketones Urine Blood Urine Nitrite Ur Leukocyte Esterase Urine RBC Urine WBC Ur Squamous Epith Cells Urine Bacteria Hyaline Casts Urine Yeast Stool Occult Blood COVID-19 ([facility]) COVID-19 Clin Com Influenza Type A ([facility]) Influenza Type B ([facility]) Influenza A & B Note Blood Type Antibody Screen Assessment and Plan (1) ANA (acute kidney injury): Status: Acute (2) Acute hyperglycemia: Status: Acute Plan 42-year-old female with history of insulin-dependent type 2 diabetes, GERD, asthma, hyperlipidemia, unspecified mood disorder who is morbidly obese with BMI greater than 41 admitted for further management of hyperglycemia related to uncontrolled type 2 diabetes and acute kidney injury. #Hyperglycemia in uncontrolled type 2 diabetes -No DKA, glucose on arrival >900. Reports compliance with metformin, trulicitym tresiba 56 units nightly, lispro ssi -On review of pharmacy history, appears she has only picked up metformin and truclity recently -hgb A1c >14.0% -Lantus 20 units initiated bedtime. Added 10 units daily -Humalog on sliding scale -Added 5 units humalog standing QIDACHS -Diabetic diet -POC glucose #Acute kidney injury- resolved -Cr improved to baseline -Avoid nephrotoxins -DC IVF -Follow BMP #Acute hyperkalemia -due to ANA/Hyperglycemia -resolved with IV insulin and IVF -Follow lytes #Elevated CK -likely due to dehydration, no rhabdo -resolved #pseudohyponatremia -due to hyperglycemia -resolved #Acute n/v -r/t above -resolved #Cutaneous candidiasis -clotrimazole x7 days #HTN -bp reasonably controlled, continue monitoring #Mild intermittent asthma -no acute exacberbation -albuterol prn #Unspecified mood disorder -pt reports taking meds on med rec but cannot verify doses. External med report is from 1 year ago and cannot be confirmed as her pharmacy is closed. Will hold for now #Morbid obesity wtih BMI >41 due to excess calories -weight loss efforts encouraged DVT prophylaxis- heparin Full code Pt requires inpt stay at least 2 midnights due to severe hyperglycemia with ANA requiring optimation of insulin therapy as well as IVF and close monitoring of glucose levels Quality Stroke Does the patient have a stroke diagnosis?: No VTE Prior VTE?: No VTE Risk Level:: Medical - moderate - high VTE Device Contraindication: Treatment Not Indicated VTE Drug Contraindication: Treatment Not Indicated
[2023-04-09 10:51] LABS: Glucose, Whole Blood 233 mg/dL (60-115)
[2023-04-09 12:45] LABS: Glucose, Whole Blood 241 mg/dL (60-115)
[2023-04-09 13:31] LABS: Basophils Absolute Auto 0.1 X10*3/uL (0.0-0.2); Basophils Percent Auto 0.9 % (0-2); Eosinophils Absolute Auto 0.1 X10*3/uL (0.0-0.4); Eosinophils Percent Auto 0.9 % (0-4); Hematocrit 33.5 % (37.0-47.0); Hemoglobin 10.4 g/dl (12.0-16.0); Imm Gran Abs Auto 0.04 X10*3/uL (0.00-0.03); Imm Gran Pct Auto 0.3 % (0.0-0.4); Lymphocytes Absolute Auto 5.9 X10*3/uL (1.2-4.9); Lymphocytes Percent Auto 48.5 % (20-40); MANUAL DIFF FLAG SCAN; Mean Corpuscular Hemoglobin 23.1 pg (27.0-33.0); Mean Corpuscular Volume 74.3 fL (80.0-98.0); Mean Platelet Volume 12.4 fL (9.4-12.3); Monocytes Absolute Auto 0.8 X10*3/uL (0.1-1.2); Monocytes Percent Auto 6.5 % (2-11); Neutrophils Absolute Auto 5.2 x10*3/uL (2.0-8.3); Neutrophils Percent Auto 42.9 % (45-73); Platelet Count 261 X10*3/uL (160-400); Red Blood Count 4.51 X10*6/uL (4.20-5.50); Red Cell Distribution Width 18.9 % (11.0-16.0); SCAN SMEAR FLAG 1; White Blood Count 12.1 X10*3/uL (4.8-10.8)
[2023-04-09 13:49] LABS: Anion Gap 13 (12-20); Blood Urea Nitrogen 7 mg/dL (9-16); Carbon Dioxide 20 mmol/L (22-29); Chloride 110 mmol/L (96-108); Creatinine Clr Calc Pharmacy 119.9; Estimated Glomerular Filt Rate > 60; Glucose Random 231 mg/dL (60-115); Potassium 4.3 mmol/L (3.3-5.1); Sodium 139 mmol/L (135-145)
[2023-04-09 13:51] LABS: Hemoglobin A1c % > 14.0 % (<6.0)
[2023-04-09 13:55] LABS: SLIDE REVIEW VERIFIED
[2023-04-09 14:10] LABS: Alanine Aminotransferase 15 U/L (0-31); Albumin Level 3.2 g/dL (3.5-5.0); Alkaline Phosphatase 79 U/L (39-117); Anion Gap 14 (12-20); Aspartate Amino Transferase 15 U/L (5-31); Bilirubin Total 0.4 mg/dL (0.0-1.0); Blood Urea Nitrogen 7 mg/dL (9-16); Calcium 8.2 mg/dL (8.4-10.2); Carbon Dioxide 19 mmol/L (22-29); Chloride 111 mmol/L (96-108); Creatinine Clr Calc Pharmacy 129.8; Estimated Glomerular Filt Rate > 60; Glucose Random 233 mg/dL (60-115); Magnesium 2.1 mg/dL (1.6-2.6); Potassium 4.4 mmol/L (3.3-5.1); Sodium 140 mmol/L (135-145); Total Protein 6.5 g/dL (6.5-8.0)
[2023-04-09 15:17] VITALS: BP 134/95; PULSE 82; RESP 18; TEMP 36.2; O2SAT 100
[2023-04-09 17:06] LABS: Glucose, Whole Blood 406 mg/dL (60-115)
[2023-04-09] MEDS: Heparin Sodium,Porcine 5,000 UNIT/ML VIAL 5000 UNIT SUBCUT (17:16)
[2023-04-09] MEDS: 0.9 % Sodium Chloride Flush 3 ML SYRINGE IVFLUSH ×2 (17:18→22:17)
[2023-04-09] MEDS: Omeprazole 40 MG CAPSULE.DR PO (17:34)
[2023-04-09 19:16] VITALS: BP 93/52; PULSE 95; RESP 18; TEMP 36.6; O2SAT 96
[2023-04-09 21:19] LABS: Glucose, Whole Blood 299 mg/dL (60-115)
--- NOTE | 2023-04-09 21:57 | PM.EVENT ---
Event Note Date of Service: 04/09/23 Event Note: Patient persists with hyperglycemia and improving. I did add sliding scale in addition to current insulin regiment. As her creatinine is normal now and not recent administration of IV contrast I will also add tx w/ metformin 500 mg PO bid. Metformin would be benefit in this pt's case as she likely has underlying insulin resistance due to morbid obesity. Time Spent With Patient Time: Total time managing care of this patient today ____ minutes.
[2023-04-09 22:00] VITALS: BP 118/63
[2023-04-09] MEDS: Insulin Glargine,Hum.rec.anlog 100 UNIT/ML 10 ML VIAL 20 UNIT SUBCUT (22:15)
[2023-04-09] MEDS: chlorproMAZINE HCl 100 MG TABLET PO (22:20)
[2023-04-10] VITALS (7 sets, daily range): BP systolic 107–134; BP diastolic 59–86; PULSE 89–100; RESP 18–20; TEMP 36.1–37.1; O2SAT 96–100
[2023-04-10] MEDS: Omeprazole 40 MG CAPSULE.DR PO ×2 (06:07→17:49)
[2023-04-10] MEDS: Acetaminophen 325 MG TABLET 975 MG PO (06:08)
[2023-04-10 07:44] LABS: Glucose, Whole Blood 361 mg/dL (60-115)
[2023-04-10 08:12] LABS: Anion Gap 12 (12-20); Blood Urea Nitrogen 9 mg/dL (9-16); Calcium 8.4 mg/dL (8.4-10.2); Carbon Dioxide 21 mmol/L (22-29); Chloride 105 mmol/L (96-108); Creatinine Clr Calc Pharmacy 96.8; Estimated Glomerular Filt Rate 53; Glucose Random 429 mg/dL (60-115); Potassium 3.9 mmol/L (3.3-5.1); Sodium 134 mmol/L (135-145)
--- NOTE | 2023-04-10 08:44 | PC.NURSE ---
patient requires teaching on diet measures to control blood glucose levels
[2023-04-10] MEDS: metFORMIN HCl 500 MG TABLET PO ×2 (08:52→17:54)
[2023-04-10] MEDS: 0.9 % Sodium Chloride Flush 3 ML SYRINGE IVFLUSH ×2 (08:52→17:49)
[2023-04-10] MEDS: Insulin Lispro 100 UNIT/ML 3 ML VIAL SUBCUT ×5 (08:52→21:38)
[2023-04-10] MEDS: Insulin Glargine,Hum.rec.anlog 100 UNIT/ML 10 ML VIAL 10 UNIT SUBCUT ×2 (08:52→14:06)
--- NOTE | 2023-04-10 11:04 | HO.PM.IMPN ---
Subjective Subjective Date of Service: 04/10/23 Interval History: Seen in follow up for hyperglycemia, ana Interval history: Her sugars remains very high Physical Exam Vital Signs: Vital Signs: Last Vital Signs Temp 97.7 F 04/10/23 07:33 Pulse 93 04/10/23 07:33 Resp 20 04/10/23 07:33 BP 112/59 L 04/10/23 07:33 Pulse Ox 97 04/10/23 07:33 O2 Del Method Room Air 04/10/23 07:33 BMI result Body Mass Index 41.4 Constitutional - Awake and Alert, No apparent distress Cardiovascular - S1S2, RRR, No edema Respiratory - Normal lung expansion, Normal respiratory effort, No respiratory distress, CTA bilaterally Gastrointestinal - NT / ND; +BS; No rebound or guarding Extremities - no calf tenderness bilaterally, no swelling Skin - Warm/Dry Neurological - Alert & oriented x3 Psychological - Appropriate affect Objective Data Active Medications Acetaminophen (Acetaminophen 325 Mg Tablet) 975 mg PO Q6H PRN PRN Reason: Pain, Mild (Pain Scale 1-3) Last Admin: 04/10/23 06:08 Dose: 975 mg Documented By: IRINA Chlorpromazine HCl (Chlorpromazine Hcl 100 Mg Tablet) 100 mg PO BEDTIME PRN PRN Reason: Nausea And Vomiting Last Admin: 04/09/23 22:20 Dose: 100 mg Documented By: IRINA Clotrimazole (Clotrimazole 1 % Vaginal Cream 45 Gm Tube) 1 appl VAGINAL BEDTIME [facility] Stop: 04/14/23 21:01 Last Admin: 04/09/23 22:22 Dose: 1 appl Documented By: IRINA Dextrose (Dextrose 50 % 25 Gm/50 Ml Syringe) 25 gm IVPUSH Q15M PRN; Protocol PRN Reason: per Hypoglycemia Standing Ord. Dextrose (Dextrose 50 % 25 Gm/50 Ml Syringe) 25 gm IVPUSH Q15M PRN; Protocol PRN Reason: per Hypoglycemia Standing Ord. Fluticasone Propionate (Fluticasone Propionate Nasal 16 Gm [place]) 1 spray NOSTRIL-B DAILY PRN PRN Reason: Allergy Symptoms Glucose (Glucose Gel 15 Gm Gel..Gram.) 15 gm PO Q15M PRN; Protocol PRN Reason: per Hypoglycemia Standing Ord. Heparin Sodium (Porcine) (Heparin Sodium,Porcine 5,000 Unit/Ml Vial) 5,000 unit SUBCUT Q8H [facility] Last Admin: 04/10/23 08:49 Dose: Not Given Documented By: ALIS Non-Admin Reason: Patient Refused Insulin Glargine (Insulin Glargine,Hum.Rec.Anlog 100 Unit/Ml 10 Ml Vial) 20 unit SUBCUT BEDTIME [facility] Last Admin: 04/09/23 22:15 Dose: 20 unit Documented By: IRINA Insulin Glargine (Insulin Glargine,Hum.Rec.Anlog 100 Unit/Ml 10 Ml Vial) 10 unit SUBCUT DAILY [facility] Last Admin: 04/10/23 08:52 Dose: 10 unit Documented By: ALIS Insulin Human Lispro (Insulin Lispro 100 Unit/Ml 3 Ml Vial) 5 unit SUBCUT QIDACHS [facility] Last Admin: 04/10/23 08:52 Dose: 5 unit Documented By: ALIS Insulin Human Lispro (Insulin Lispro 100 Unit/Ml 3 Ml Vial) 0 unit SUBCUT QIDACHS [facility]; Protocol Last Admin: 04/10/23 08:53 Dose: 10 unit Documented By: ALIS Metformin HCl (Metformin Hcl 500 Mg Tablet) 500 mg PO BIDWM [facility] Last Admin: 04/10/23 08:52 Dose: 500 mg Documented By: ALIS Omeprazole (Omeprazole 40 Mg Capsule.Dr) 40 mg PO BID@0630,1630 [facility] Last Admin: 04/10/23 06:07 Dose: 40 mg Documented By: IRINA Ondansetron HCl (Ondansetron Hcl 4 Mg/2 Ml Vial) 4 mg IVPUSH Q8H PRN PRN Reason: Nausea and Vomiting Sodium Chloride (0.9 % Sodium Chloride Flush 3 Ml Syringe) 3 ml IVFLUSH QSHIFT [facility] Last Admin: 04/10/23 08:52 Dose: 3 ml Documented By: ALIS Labs 04/09/23 13:15 04/10/23 06:17 Labs: Laboratory Results - last 24 hr 04/09/23 04/09/23 04/09/23 12:40 13:15 13:15 MCV 74.3 L MCH 23.1 L MCHC 31.0 RDW 18.9 H Plt Count 261 MPV 12.4 H Immature Gran % (Auto) 0.3 Neut % (Auto) 42.9 L Lymph % (Auto) 48.5 H [place] % (Auto) 6.5 Eos % (Auto) 0.9 Baso % (Auto) 0.9 Lymph # (Auto) 5.9 H [place] # (Auto) 0.8 Eos # (Auto) 0.1 Baso # (Auto) 0.1 Abs Immat Gran (auto) 0.04 H Absolute Neuts (auto) 5.2 Absolute Nucleated RBC 0.000 Nucleated RBC % (auto) 0.0 Smear Tech's Comments VERIFIED Hold Purple Top Anion Gap 14 13 Estim Creat Clear Calc 129.8 Estimated GFR POC Glucose 241 H Random Glucose Estimat Average Glucose Hemoglobin A1c % Calcium Magnesium Total Bilirubin AST ALT Alkaline Phosphatase Total Creatine Kinase Total Protein Albumin 04/09/23 04/09/23 04/09/23 13:15 13:15 13:15 MCV MCH MCHC RDW Plt Count MPV Immature Gran % (Auto) Neut % (Auto) Lymph % (Auto) [place] % (Auto) Eos % (Auto) Baso % (Auto) Lymph # (Auto) [place] # (Auto) Eos # (Auto) Baso # (Auto) Abs Immat Gran (auto) Absolute Neuts (auto) Absolute Nucleated RBC Nucleated RBC % (auto) Smear Tech's Comments Hold Purple Top Anion Gap Estim Creat Clear Calc 119.9 Estimated GFR > 60 > 60 POC Glucose Random Glucose 233 H 231 H Estimat Average Glucose TNP Hemoglobin A1c % > 14.0 H Calcium 8.2 L D Magnesium Total Bilirubin AST ALT Alkaline Phosphatase Total Creatine Kinase Total Protein Albumin 04/09/23 04/09/23 04/09/23 13:15 16:50 21:11 MCV MCH MCHC RDW Plt Count MPV Immature Gran % (Auto) Neut % (Auto) Lymph % (Auto) [place] % (Auto) Eos % (Auto) Baso % (Auto) Lymph # (Auto) [place] # (Auto) Eos # (Auto) Baso # (Auto) Abs Immat Gran (auto) Absolute Neuts (auto) Absolute Nucleated RBC Nucleated RBC % (auto) Smear Tech's Comments Hold Purple Top Anion Gap Estim Creat Clear Calc Estimated GFR POC Glucose 406 H* 299 H Random Glucose Estimat Average Glucose Hemoglobin A1c % Calcium 8.0 L Magnesium 2.1 Total Bilirubin 0.4 AST 15 ALT 15 Alkaline Phosphatase 79 Total Creatine Kinase 135 Total Protein 6.5 Albumin 3.2 L 04/10/23 04/10/23 06:17 07:37 MCV MCH MCHC RDW Plt Count MPV Immature Gran % (Auto) Neut % (Auto) Lymph % (Auto) [place] % (Auto) Eos % (Auto) Baso % (Auto) Lymph # (Auto) [place] # (Auto) Eos # (Auto) Baso # (Auto) Abs Immat Gran (auto) Absolute Neuts (auto) Absolute Nucleated RBC Nucleated RBC % (auto) Smear Tech's Comments Hold Purple Top SEE NOTE Anion Gap 12 Estim Creat Clear Calc 96.8 Estimated GFR 53 POC Glucose 361 H* Random Glucose 429 H* Estimat Average Glucose Hemoglobin A1c % Calcium 8.4 Magnesium Total Bilirubin AST ALT Alkaline Phosphatase Total Creatine Kinase Total Protein Albumin Assessment and Plan (1) ANA (acute kidney injury): Status: Acute (2) Acute hyperglycemia: Status: Acute Plan 42-year-old female with history of insulin-dependent type 2 diabetes, GERD, asthma, hyperlipidemia, unspecified mood disorder who is morbidly obese with BMI greater than 41 admitted for further management of hyperglycemia related to uncontrolled type 2 diabetes and acute kidney injury. #Hyperglycemia in uncontrolled type 2 diabetes -No DKA, glucose on arrival >900. Reports compliance with metformin, trulicity, tresiba 56 units nightly, lispro ssi -On review of pharmacy history, appears she has only picked up metformin and truclity recently -hgb A1c >14.0% -Lantus 20 units initiated bedtime, and 10 in Am, change to 20 bid, will probably need more -Humalog on sliding scale -Added 7 units humalog standing QIDACHS -Diabetic diet -POC glucose #Acute kidney injury- resolved -Cr improved to baseline -Avoid nephrotoxins -DC IVF -Follow BMP #Acute hyperkalemia -due to ANA/Hyperglycemia -resolved with IV insulin and IVF -Follow lytes #Elevated CK -likely due to dehydration, no rhabdo -resolved #pseudohyponatremia -due to hyperglycemia -resolved #Acute n/v -r/t above -resolved #Cutaneous candidiasis -clotrimazole x7 days #HTN -bp reasonably controlled, continue monitoring #Mild intermittent asthma -no acute exacberbation -albuterol prn #Unspecified mood disorder -pt reports taking meds on med rec but cannot verify doses. External med report is from 1 year ago and cannot be confirmed as her pharmacy is closed. Will hold for now #Morbid obesity wtih BMI >41 due to excess calories -weight loss efforts encouraged DVT prophylaxis- heparin Full code Pt requires inpt stay at least 2 midnights due to severe hyperglycemia with ANA requiring optimation of insulin therapy as well as IVF and close monitoring of glucose levels Quality Stroke Does the patient have a stroke diagnosis?: No VTE Prior VTE?: No VTE Risk Level:: Medical - moderate - high VTE Device Contraindication: Treatment Not Indicated VTE Drug Contraindication: Treatment Not Indicated
--- NOTE | 2023-04-10 11:05 | MHC.CM.PN ---
Pt lives with a roommate, she does not have home health services or med equipment. She does get her medications delivered to her. She has not used a VNA, but would like to have this service if rec upon DC. HCP discussed, pt declined to complete one. Pt will need assistance with transportation upon DC. CM to follow and assist with DC planning.
[2023-04-10 11:39] LABS: Glucose, Whole Blood 240 mg/dL (60-115)
[2023-04-10] MEDS: Fluticasone Propionate Nasal 16 GM SPRAY 1 SPRAY NOSTRIL-B (13:59)
[2023-04-10] MEDS: Insulin Lispro 100 UNIT/ML 3 ML VIAL 7 UNIT SUBCUT ×3 (14:01→21:40)
[2023-04-10 17:20] LABS: Glucose, Whole Blood 282 mg/dL (60-115)
[2023-04-10] MEDS: Heparin Sodium,Porcine 5,000 UNIT/ML VIAL 5000 UNIT SUBCUT (17:49)
[2023-04-10 21:28] LABS: Glucose, Whole Blood 315 mg/dL (60-115)
[2023-04-10] MEDS: Clotrimazole 1 % Vaginal Cream 45 GM TUBE 1 APPL VAGINAL (21:38)
[2023-04-10] MEDS: Insulin Glargine,Hum.rec.anlog 100 UNIT/ML 10 ML VIAL 20 UNIT SUBCUT (21:39)
[2023-04-11] MEDS: 0.9 % Sodium Chloride Flush 3 ML SYRINGE IVFLUSH ×2 (01:48→08:43)
[2023-04-11 04:00] VITALS: BP 115/68; PULSE 79; RESP 16; TEMP 36.8; O2SAT 97
[2023-04-11] MEDS: Omeprazole 40 MG CAPSULE.DR PO (06:21)
--- NOTE | 2023-04-11 06:54 | PC.NURSE ---
Assumed care of patient at 2345. See shift assessments and EMAR for full details. Handoff report given to oncoming RN 06:45.
[2023-04-11 07:18] LABS: Glucose, Whole Blood 209 mg/dL (60-115)
[2023-04-11 08:00] VITALS: BP 110/55; PULSE 81; RESP 18; TEMP 37.1; O2SAT 100
[2023-04-11] MEDS: Insulin Lispro 100 UNIT/ML 3 ML VIAL 7 UNIT SUBCUT ×2 (08:42→12:00)
[2023-04-11] MEDS: Insulin Lispro 100 UNIT/ML 3 ML VIAL SUBCUT ×2 (08:42→12:00)
[2023-04-11] MEDS: metFORMIN HCl 500 MG TABLET PO (08:43)
[2023-04-11] MEDS: Insulin Glargine,Hum.rec.anlog 100 UNIT/ML 10 ML VIAL 20 UNIT SUBCUT (08:43)
--- NOTE | 2023-04-11 09:45 | P.DS_ITS ---
DS: Providers Provider Date of Service: 04/11/23 Date of admission: 04/09/23 00:29 Primary care physician: Daphne Cortez MD DS: Diagnosis Discharge Diagnosis (1) ANA (acute kidney injury): Status: Acute (2) Acute hyperglycemia: Status: Acute DS: Summary Hospital Course Hospital Course: Chief Complaint: Generalized abdominal pain. Reba Sofia is a 42 years old woman with past medical history significant for type 2 diabetes on metformin and Trulicity, morbid obesity, GERD, asthma and hyperlipidemia presents to the emergency department complaining of generalized abdominal pain nausea, and vomiting (dark). She also complained of urinary frequency, thirstiness and dry mouth. She also mentioned that she has vaginal infection. He had headache, cough, fever, chills, dizziness or palpitations. She denies any cardiopulmonary symptoms. She denies tobacco smoking, alcohol abuse or illicit drug use. Patient admits that she is noncompliant with her home medications. Patient was unable to recall the names of all her medications. In the ED, she was found to have stable vital signs. There is no fever and her oxygen saturation is normal on room air. Her glucose was initially found to be 957 and hyperkalemia. Her creatinine is elevated, 1.57 (it was normal before). Bicarb is normal. Lipase is normal. Total CK is slightly elevated. Viral testing for influenza and COVID-19 is negative. ED tx: Patient received a total 4 L of normal saline. Insulin R 10 units IV x1. Lantus 20 units subQ once. Hospital course: 42-year-old female with history of insulin-dependent type 2 diabetes, GERD, asthma, hyperlipidemia, unspecified mood disorder who is morbidly obese with BMI greater than 41 admitted for further management of hyperglycemia related to uncontrolled type 2 diabetes and acute kidney injury. #Hyperglycemia without acidosis, hemoglobin A1C of 14 due non compliance. She was supposed to be on metformin, Tresiba, Truliciy but has not been taking the m. On presenation blood sugare > 900. She was treated with IV fluid, insulin. She has bee restared on Metformin 500 mg twice daily, Lantus 20 units BIB and pre meal insulin of 7 units in addition to sliding scale. Med compliance is highly stressed, at this point her fasting blood sugar is 209 and will discharge with Lantus 24 bid, metformin 1000 bid and sliding scale insulin. She is intestestin Oxempic which should be discussed with her primary care physiciant #Acute kidney injury--was due to glucosuria from hyperglycemia and has resolved following IV fluid. #Acute hyperkalemia--resolved. #Elevated CK -likely due to dehydration, no rhabdo -resolved #pseudohyponatremia-- -due to hyperglycemia #Acute nausea/vomitting due to hyperglycemia this has resolved. #Cutaneous candidiasis -clotrimazole x7 days #HTN -bp reasonably controlled, continue monitoring #Mild intermittent asthma -no acute exacberbation -albuterol prn #Unspecified mood disorder -pt reports taking meds on med rec but cannot verify doses. External med report is from 1 year ago and cannot be confirmed as her pharmacy is closed. Will hold for now #Morbid obesity wtih BMI >41 due to excess calories -weight loss efforts encouraged Time Attestation Discharge coordination time: Greater than 30 minutes Quality: Safe Use of Opioids Does Pt have an Active Cancer Diagnosis on the Problem List?: No Quality: Stroke Does the patient have a stroke diagnosis?: No Physical Exam Vital Signs: Vital Signs: Last Vital Signs Temp 98.7 F 04/11/23 08:00 Pulse 81 04/11/23 08:00 Resp 18 04/11/23 08:00 BP 110/55 L 04/11/23 08:00 Pulse Ox 100 04/11/23 08:00 O2 Del Method Room Air 04/11/23 08:00 BMI result Body Mass Index 41.4 Const: Other: General: AO X 3, no acute distress Resp: CTA bilateral CVS: S1,S2,RRR GI: +BS, NT, no distention Skin: No rash Neuro: motor grossly intact Psych: appropriate affect DS: Data Data Completed and Pending Labs on day of discharge: Laboratory Results - last 24 hr 04/10/23 04/10/23 04/10/23 11:29 17:16 21:17 POC Glucose 240 H 282 H 315 H 04/11/23 07:11 POC Glucose 209 H Discharge Plan Discharge Anticipated Discharge Date/Time: 04/11/23 09:42 Patient Disposition: Home Health Service Discharge Diagnosis: Acute Hyperglycemia, ANA Referrals: [facility] [Outside] - 1 Week Daphne Cortez MD [Primary Care Provider] - 1 Week Discharge Medications: New alcohol swabs Pads, Medicated 1 pad TOPICAL QIDACHS Qty: 100 0RF Rx Instructions: Use four times a day or as directed. insulin lispro [Humalog KwikPen Insulin] 100 unit/mL insulin pen 1 sliding scale dose subcut QIDACHS MDD 40 units Qty: 15 0RF Rx Instructions: Blood Sugar: <150 - 0 units 151-200 - 2 units 201-250 - 4 units 251-300 - 6 units 301-350 - 8 units >350 - 10 units insulin glargine [Lantus Solostar U-100 Insulin] 100 unit/mL (3 mL) insulin pen 24 unit SUBCUT BID Qty: 15 1RF (DME) pen needle, diabetic 32 gauge x 1/4 needle Qty: 100 0RF Rx Instructions: Use four times a day or as directed. metformin 1,000 mg tablet 1,000 mg PO BID Qty: 60 0RF Continued chlorpromazine 100 mg tablet 1 tab PO BEDTIME PRN (Reason: Nausea And Vomiting) hydroxyzine pamoate 25 mg capsule 25 mg PO BID PRN (Reason: Anxiety) quetiapine 100 mg Tablet 100 mg PO BEDTIME buspirone 15 mg Tablet 15 mg PO BID omeprazole 40 mg Capsule,Delayed Release(Dr/Ec) 40 mg PO BID@0630,1630 Qty: 120 2RF fluticasone propionate 50 mcg/actuation spray,suspension 1 spray intranasal DAILY PRN (Reason: Allergy Symptoms) gabapentin 100 mg capsule 100 mg PO TID ergocalciferol (vitamin D2) 1,250 mcg (50,000 unit) capsule 1,250 mcg PO QWEEK sertraline [Zoloft] 100 mg tablet 100 mg PO DAILY melatonin 10 mg capsule 10 mg PO BEDTIME PRN (Reason: Insomnia) topiramate [Topamax] 25 mg capsule, sprinkle 25 mg PO BEDTIME risperidone 2 mg tablet 2 mg PO DAILY atorvastatin 40 mg tablet 40 mg PO BEDTIME Qty: 30 11RF (DME) blood-glucose meter [FreeStyle Lite Meter] Kit See Rx Instructions .ROUTE .MEDSUPPLY Qty: 1 0RF Rx Instructions: As directed (DME) FreeStyle Lite Strips Strip See Rx Instructions .ROUTE .MEDSUPPLY Qty: 150 11RF Rx Instructions: As directed four times a day (DME) lancets [FreeStyle Lancets] 28 gauge misc See Rx Instructions .ROUTE .MEDSUPPLY Qty: 200 11RF Rx Instructions: 4 times a day Discontinued metformin 500 mg Tablet Extended Release 24hr 500 mg PO DAILY@1730 insulin degludec [Tresiba FlexTouch U-200] 200 unit/mL (3 mL) insulin pen 56 unit subcut BEDTIME insulin lispro [Humalog KwikPen Insulin] 100 unit/mL insulin pen 0 sliding scale dose subcut QIDACHS Protocol: Insulin Correction Scale Less than or equal to 110 ---- Give (units): 0 111 to 150 Give (units): 0 151 to 200 Give (units): 2 201 to 250 Give (units): 4 251 to 300 Give (units): 6 301 to 350 Give (units): 8 Greater than 350 Give (units): 10 Call MD if Blood Glucose > : 350 Trulicity 0.75 mg/0.5 mL pen injector 0.75 mg subcut TH@0900 Discharge Orders: Discharge Order (Routine); Ordered 04/11/23 Ordered By: Rubén Blanchard Diet: Advance to usual diet Activity on Discharge: As tolerated Stand Alone Forms: Patient Portal Discharge page Care Plan Goals: Blood sugar control and prevention of diabetes complication Health Concerns: uncontrol blood diabetes Plan of Treatment: advised to take insulin as directed and to follow up with PCP for further adjustment in blood sugars Take Lantus 24 units twice daily in the morning and before bed Take Humalog per sliding scale Take metformin 1000 mg twice daily check your sugars regulary in the morning, before lunch, before dinner and at be [facility] write down all your sugar level and give it your pcp at your next visit if you develop low blood sugar below 70, drink juice and recheck in 30 minuts and if still low drink more juice and call 911 call your doctor for blood sugar above 350 Assessment: see above Discharge Date/Time: 04/11/23 12:50
[2023-04-11 11:39] LABS: Glucose, Whole Blood 254 mg/dL (60-115)
--- NOTE | 2023-04-11 11:39 | W.MHC.F2F ---
Service Date Service Date: 04/11/23 Encounter Date of encounter: 04/11/23 Reasons for Services Signs and symptoms assessed: weakness from hospitalization, uncontrolled blood sugar Reason for long term: medication management and teach disease management Homebound: Leaving the home is medically contraindicated at this time without the asist of a device and/or another person due th the listed conditions above and below. Reason homebound: weakness related to hospital stay Homebound supporting statement: homebound due to weakness and deconditioned from hospitalization, and uncontrolled blood sugars and therefore needs the assitance of another person Certification: Based on the above findings, I certify that this patient is confined to the home and needs intermittent long term care, physical therapy and/or speech therapy, or continues to need occupational therapy. The patient is under my care, and I have initiated the establishment of the plan of care. The patient will be followed by a physician who will periodically review the plan of care. Time Spent With Patient Time: Total time managing care of this patient today ____ minutes.
--- NOTE | 2023-04-11 13:33 | MHC.CM.PN ---
Pt is medically cleared for D/C home with [facility]. Pt transported home via lyft.
== END 2023-04-11 12:50 | disposition home health service (06) | DRG 420 ==
LOC: HO.ED 23:18 → HO.EDOVER 04-09 00:40 → HO.IMC 04-09 12:07
PROVIDERS: Physician Assistant; Admitting Provider Internal Medicine; Emergency Provider Student in an Organized Health Care Education/Training Program; PCP Internal Medicine; Visit Provider Internal Medicine
DX: E11.65 Type 2 diabetes mellitus with hyperglycemia (principal); N17.9 Acute kidney failure, unspecified; B37.2 Candidiasis of skin and nail; E78.5 Hyperlipidemia, unspecified; E66.01 Morbid (severe) obesity due to excess calories; E86.0 Dehydration; K21.9 Gastro-esophageal reflux disease without esophagitis; F39 Unspecified mood [affective] disorder; K29.70 Gastritis, unspecified, without bleeding; Z68.41 Body mass index [BMI] 40.0-44.9, adult; E87.5 Hyperkalemia; Z20.822 Contact with and (suspected) exposure to COVID-19; Z91.199 Patient's noncompliance with other medical treatment and regimen due to unspecified reason; Z79.84 Long term (current) use of oral hypoglycemic drugs; Z79.85 Long-term (current) use of injectable non-insulin antidiabetic drugs; Z79.899 Other long term (current) drug therapy
CPT/HCPCS: 36415; 80048; 80053; 81001; 82010; 82272; 82550; 82947; 83036; 83690; 83735; 85007; 85025; 85027; 86850; 86900; 86901; 87502; 87635; 99285; C9113; J1644

== ENCOUNTER → 2023-04-09 00:29 | Outpatient (BNV) | payer MEDICAID, SELFPAY | PROVIDERS: Admitting Provider Internal Medicine; Emergency Provider Student in an Organized Health Care Education/Training Program; PCP Internal Medicine; Visit Provider Internal Medicine | DX: N17.9 Acute kidney failure, unspecified (principal); E11.65 Type 2 diabetes mellitus with hyperglycemia | CPT/HCPCS: 99223; 99232; 99239; 99499; G0180 ==

== ENCOUNTER 2023-04-14 17:50 | Outpatient (REF) | payer MEDICAID, SELFPAY ==
[2023-04-15 05:36] LABS: CT PCR NOT DETECTED (Not Detect.); NG PCR NOT DETECTED (Not Detect.)
== END 2023-04-14 17:51 | disposition home or self-care (01) ==
LOC: HO.HHCLNP 17:50
PROVIDERS: Visit Provider Internal Medicine
DX: N76.0 Acute vaginitis (principal)
CPT/HCPCS: 0353U; 36415; 81513

== ENCOUNTER 2023-09-23 18:19 | Outpatient (REF) | payer MEDICAID, SELFPAY ==
[2023-09-24 01:36] LABS: CT PCR NOT DETECTED (Not Detect.); NG PCR NOT DETECTED (Not Detect.)
[2023-09-24 11:40] LABS: Bacterial Vaginosis PCR POSITIVE (Negative); Candida Group PCR DETECTED (Not Detect); Candida glab krusei PCR NOT DETECTED (Not Detect); Trichomonas vaginalis PCR NOT DETECTED (Not Detect)
== END 2023-09-23 18:20 | disposition home or self-care (01) ==
LOC: HO.HHCLNP 18:19
PROVIDERS: Visit Provider Registered Nurse
DX: N89.8 Other specified noninflammatory disorders of vagina (principal)
CPT/HCPCS: 0352U; 87086; 87147; 87491; 87591

== ENCOUNTER 2023-12-30 18:26 | Outpatient (REF) | payer MEDICAID, SELFPAY ==
[2023-12-31 12:44] LABS: CT PCR NOT DETECTED (Not Detect.); NG PCR NOT DETECTED (Not Detect.)
[2023-12-31 16:34] LABS: Bacterial Vaginosis PCR POSITIVE (Negative); Candida Group PCR NOT DETECTED (Not Detect); Candida glab krusei PCR NOT DETECTED (Not Detect); Trichomonas vaginalis PCR NOT DETECTED (Not Detect)
[2024-01-03 14:38] LABS: HPV mRNA E6/E7 Not Detected (Not Detected)
== END 2023-12-30 18:27 | disposition home or self-care (01) ==
LOC: HO.HHCLNP 18:26
PROVIDERS: Visit Provider Internal Medicine
DX: N76.0 Acute vaginitis (principal); Z12.4 Encounter for screening for malignant neoplasm of cervix
CPT/HCPCS: 0352U; 87491; 87591; 87624; 88175

== ENCOUNTER 2025-02-13 15:24 | Emergency (ER) | payer SELFPAY ==
[2025-02-13 15:34] VITALS: BP 134/74; PULSE 70; RESP 14; O2SAT 94; BMI 32.1
[2025-02-13 16:07] LABS: Appearance Urine Cloudy; Glucose Urine UA Negative (Negative); PH 6.0 (5.0-9.0); Specific Gravity - Urine >= 1.030 (1.005-1.025); UMIC TRIGGER UACC YES
[2025-02-13 16:07] LABS: Hematocrit 42.7 % (37.0-47.0); Hemoglobin 13.8 g/dl (12.0-16.0); Imm Gran Abs Auto 0.05 X10*3/uL (0.00-0.03); Imm Gran Pct Auto 0.3 % (0.0-0.4); Lymphocytes Absolute Auto 5.4 X10*3/uL (1.2-4.9); MANUAL DIFF FLAG SCAN; Mean Corpuscular HGB Conc 32.3 g/dl (31.0-35.0); Mean Corpuscular Hemoglobin 26.8 pg (27.0-33.0); Mean Corpuscular Volume 83.1 fL (80.0-98.0); NRBC Abs Auto 0.000 X10*3/uL (0.0-0.012); NRBC Pct Auto 0.0 /100WBC (0.0-0.2); Platelet Count 381 X10*3/uL (160-400); Red Blood Count 5.14 X10*6/uL (4.20-5.50); SCAN SMEAR FLAG 1; White Blood Count 16.5 X10*3/uL (4.8-10.8)
[2025-02-13 16:08] LABS: UPreg QC Valid YES
[2025-02-13 16:14] LABS: Alanine Aminotransferase 18 U/L (0-31); Albumin Level 4.9 g/dL (3.5-5.0); Alkaline Phosphatase 72 U/L (39-117); Anion Gap 18 (12-20); Aspartate Amino Transferase 20 U/L (5-31); Blood Urea Nitrogen 14 mg/dL (9-16); Calcium 9.8 mg/dL (8.4-10.2); Carbon Dioxide 20 mmol/L (22-29); Chloride 107 mmol/L (96-108); Creatinine Clr Calc Pharmacy 100.6; Estimated Glomerular Filt Rate > 60; Potassium 3.5 mmol/L (3.3-5.1); Sodium 141 mmol/L (135-145); Total Protein 8.5 g/dL (6.5-8.0)
[2025-02-13 16:16] LABS: Cannabinoid Screen Urine POSITIVE (Not Detect)
--- NOTE | 2025-02-13 16:29 | ED.GENADULT ---
HPI - General Adult General Chief complaint: Abdominal Pain Stated complaint: VOMITING X 4 DAYS Time Seen by Provider: 02/13/25 16:12 Source: patient Mode of arrival: ambulatory Limitations: no limitations History of Present Illness ED Provider: Dr. Wick HPI narrative: 44-year-old female history of diabetes, hyperlipidemia hypertension presented hospital today for epigastric tenderness and nausea and vomiting. Patient states she feels uncomfortable. She went to [facility] however they did not do much for her therefore she come here for evaluation. Patient stated that this has been going on for a week now. She has not been able to get comfortable where she is not eating at all or drinking due to this pain. Related Data Home Medications ?Medication ?Instructions ?Recorded ?Confirmed ergocalciferol (vitamin D2) 1,250 1,250 mcg PO QWEEK 10/16/20 04/23/22 mcg (50,000 unit) capsule gabapentin 100 mg capsule 100 mg PO TID 10/16/20 04/23/22 melatonin 10 mg capsule 10 mg PO BEDTIME PRN Insomnia 10/16/20 04/23/22 risperidone 2 mg tablet 2 mg PO DAILY 10/16/20 04/23/22 sertraline 100 mg tablet (Zoloft) 100 mg PO DAILY 10/16/20 04/23/22 topiramate 25 mg sprinkle capsule 25 mg PO BEDTIME 10/16/20 04/23/22 (Topamax) chlorpromazine 100 mg tablet 1 tab PO BEDTIME PRN Nausea And 04/22/22 04/09/23 Vomiting hydroxyzine pamoate 25 mg capsule 25 mg PO BID PRN Anxiety 04/22/22 04/23/22 buspirone 15 mg tablet 15 mg PO BID 04/23/22 04/23/22 quetiapine 100 mg tablet 100 mg PO BEDTIME 04/23/22 04/23/22 fluticasone propionate 50 1 spray intranasal DAILY PRN 04/09/23 04/09/23 mcg/actuation nasal Allergy Symptoms spray,suspension Previous Rx's ?Medication ?Instructions ?Recorded atorvastatin 40 mg tablet 40 mg PO BEDTIME #30 tabs 05/26/21 blood sugar diagnostic (FreeStyle #150 ea 05/26/21 Lite Strips) blood-glucose meter (FreeStyle #1 ea 05/26/21 Lite Meter kit) lancets 28 gauge (FreeStyle #200 ea 05/26/21 Lancets) omeprazole 40 mg capsule,delayed 40 mg PO BID@0630,1630 #120 caps 04/24/22 release alcohol swabs 1 pad topical QIDACHS #100 ea 04/11/23 insulin glargine 100 unit/mL (3 24 unit (0.24 mL) subcut BID #15 mL 04/11/23 mL) subcutaneous pen (Lantus Solostar U-100 Insulin) insulin lispro 100 unit/mL 1 sliding scale dose subcut 04/11/23 subcutaneous pen (Humalog KwikPen QIDACHS #15 mL (U-100) Insulin) metformin 1,000 mg tablet 1,000 mg PO BID #60 tabs 04/11/23 pen needle, diabetic 32 gauge x #100 ea 04/11/23 1/ cephalexin 500 mg tablet 500 mg PO Q8H 7 days #21 tabs 02/13/25 Allergies Allergy/AdvReac Type Severity Reaction Status Date / Time ibuprofen (From Motrin) Allergy Anaphylaxis Verified 02/13/25 15:35 morphine Allergy Hives Verified 02/13/25 15:35 Review of Systems Review of Systems: Pertinent review of systems as mentioned in HPI. All other system otherwise negative. [facility] Past Medical History Attestation statement: The following information was validated with the patient. [facility] Narrative: Medical history as mentioned in HPI Medical History History of gastroesophageal reflux (GERD) Substance abuse Vitamin D deficiency Obesity due to excess calories Type 2 diabetes mellitus with chronic kidney disease Diabetes type 2, uncontrolled Hyperlipidemia LDL goal <100 Diabetes Hypertension Asthma Surgical History Hx of section Hx of splenectomy Family History Family History Mother Diabetes Maternal Grandmother Diabetes Maternal Aunt Diabetes Hypertension Father No problems noted. Social History Social History Household Members: Friend(s) Household Members Other:: roommate Housing: House Housing Other:: Hose for woman Do you presently have visiting nurse or other home services: No Alcohol intake: never Patient Tobacco Use Status: Never used Tobacco Cigarettes Per Day: 6 Years Smoked: 30 e-Cigarette/Vaping Use: Currently Using Second Hand Smoke Exposure: No Advance Directives: No Advance Directives Information Provided: Yes service: No Current occupational status: unemployed Physical Exam ED Exam Exam: General: Appears uncomfortable, actively writhing and retching Head: Normacephalic, atraumatic ENT: oral mucosa moist, neck supple, no tracheal deviation Cardiovascular: regular rate, regular rhythm, no murmurs, rubbing, gallops Respiratory: CTAB, no wheeze, rales, rhonchi Gastrointestinal: Soft, non distended, diffuse abdominal tenderness on exam Neurological: Awake and alert, no facial droop noted Skin: Warm and dry Psychiatric: Appears anxious Vital Signs: Vital Signs - 24 hr 02/13/25 15:34 Pulse Rate 70 Respiratory Rate 14 Blood Pressure 134/74 Pulse Oximetry 94 Oxygen Delivery Method Room Air BMI result Body Mass Index 32.1 Medications Administered Discontinued Medications Generic Name Dose Route Start Last Admin Trade Name Freq PRN Reason Stop Dose Admin Fentanyl 50 mcg 02/13/25 16:47 02/13/25 16:58 Fentanyl Citrate/Pf 100 Mcg/2 Ml Vial IVPUSH 02/13/25 16:48 50 mcg ONCE ONE Administration Protocol Haloperidol Lactate 10 mg 02/13/25 17:08 02/13/25 17:14 Haloperidol Lactate 5 Mg/Ml Vial IM 02/13/25 17:09 10 mg STAT STA Administration Lactated Ringer's 1,000 mls @ 999 mls/hr 02/13/25 16:45 02/13/25 17:29 Lr IV 02/13/25 17:45 0 mls/hr .Q1H1M YARED Infusion Midazolam HCl 2 mg 02/13/25 16:45 02/13/25 16:58 Midazolam Hcl 2 Mg/2 Ml Vial IVPUSH 02/13/25 16:46 2 mg ONCE ONE Administration Midazolam HCl 2 mg 02/13/25 17:08 02/13/25 17:14 Midazolam Hcl 2 Mg/2 Ml Vial IM 02/13/25 17:09 2 mg ONCE ONE Administration Ondansetron HCl 4 mg 02/13/25 16:28 02/13/25 17:29 Ondansetron Odt 4 Mg Tab.Rapdis TRANSLINGU 02/13/25 16:29 Not Given ONCE ONE Ondansetron HCl 4 mg 02/13/25 16:45 02/13/25 16:58 Ondansetron Hcl 4 Mg/2 Ml Vial IVPUSH 02/13/25 16:46 4 mg ONCE ONE Administration Medical Decision Making Medical Decision Making [facility] Narrative: 44-year-old female presented hospital today for nausea vomiting and abdominal pain. Patient is a chronic marijuana user. This does appear to be cyclic vomiting to me on clinical evaluation. Patient is states she has a difficult stick with the IV. Patient states she does not want any IV in her arms. We informed her that in order to perform CT imaging for her abdomen and pelvis we may need IV in her upper arm. I did attempt to perform a bedside ultrasound I did successfully placed a 20 gauge needle into the right forearm. This was confirmed with ultrasound. I was able to confirm saline bubble was in the vein. however unfortunately it blew. Decision was made to sedate the patient at this time. For comfort. Patient is writhing in bed it is very difficult for us to take care of the patient at this time. It is very difficult for us to place an IV. Patient is restless and anxious. I did discuss with the patient if she will be okay we gave her some Haldol. Patient's stated yes. I attempted to perform bedside ultrasound IV however patient woken up. Patient is restless walking around the room screaming yelling erratic. Patient stated that she can not sit still. She will like to take a hot shower. Patient is ambulating attempting to going to the CT scanner room. Redirect her back to the room. Patient is requesting to be discharged at this time. She does not want to be in the hospital anymore. Patient has full capacity to make this decision. We will plan to discharge patient Differential Diagnosis Differential Diagnoses: The differential diagnosis associated with the presentation includes Gastritis, cyclical vomiting, ANA, dehydration, colitis, constipation Lab Data [facility] Lab Attestation statement: I reviewed the patient's lab results. 02/13/25 15:52 02/13/25 15:52 Labs: Lab Results 02/13/25 02/13/25 Range/Units 15:52 15:58 WBC 16.5 H (4.8-10.8) X10*3/uL RBC 5.14 (4.20-5.50) X10*6/uL Hgb 13.8 D (12.0-16.0) g/dl Hct 42.7 D (37.0-47.0) % MCV 83.1 (80.0-98.0) fL MCH 26.8 L (27.0-33.0) pg MCHC 32.3 (31.0-35.0) g/dl RDW 16.0 (11.0-16.0) % Plt Count 381 D (160-400) X10*3/uL MPV 10.9 (9.4-12.3) fL Immature Gran % (Auto) 0.3 (0.0-0.4) % Neut % (Auto) 58.4 (45-73) % Lymph % (Auto) 32.9 (20-40) % [place] % (Auto) 6.9 (2-11) % Eos % (Auto) 0.8 (0-4) % Baso % (Auto) 0.7 (0-2) % Lymph # (Auto) 5.4 H (1.2-4.9) X10*3/uL [place] # (Auto) 1.1 (0.1-1.2) X10*3/uL Eos # (Auto) 0.1 (0.0-0.4) X10*3/uL Baso # (Auto) 0.1 (0.0-0.2) X10*3/uL Abs Immat Gran (auto) 0.05 H (0.00-0.03) X10*3/uL Absolute Neuts (auto) 9.6 H (2.0-8.3) x10*3/uL Absolute Nucleated RBC 0.000 (0.0-0.012) X10*3/uL Nucleated RBC % (auto) 0.0 (0.0-0.2) /100WBC Smear Tech's Comments VERIFIED Sodium 141 (135-145) mmol/L Potassium 3.5 (3.3-5.1) mmol/L Chloride 107 (96-108) mmol/L Carbon Dioxide 20 L (22-29) mmol/L Anion Gap 18 (12-20) BUN 14 (9-16) mg/dL Creatinine 0.94 (0.5-1.4) mg/dL Estim Creat Clear Calc 100.6 Estimated GFR > 60 Random Glucose 173 H (60-115) mg/dL Calcium 9.8 D (8.4-10.2) mg/dL Total Bilirubin 0.7 (0.0-1.0) mg/dL AST 20 (5-31) U/L ALT 18 (0-31) U/L Alkaline Phosphatase 72 (39-117) U/L Total Protein 8.5 H (6.5-8.0) g/dL Albumin 4.9 (3.5-5.0) g/dL Urine Color Dark Yellow Urine Appearance Cloudy Urine pH 6.0 (5.0-9.0) Ur Specific [place] >= 1.030 H (1.005-1.025) Urine Protein 300 (3+) H (Neg-Trace) mg/dL Urine Glucose (UA) Negative (Negative) mg/dL Urine Ketones Trace (Negative) mg/dL Urine Blood Small (1+) H (Negative) Urine Nitrite Negative (Negative) Ur Leukocyte Esterase Small (1+) H (Negative) Urine RBC 3-5 H (0-2) /HPF Urine WBC 6-10 (0-5) /HPF Ur Squamous Epith Cells 6-10 (0-2) /HPF Urine Bacteria 4+ (None Seen) Hyaline Casts 6-10 (0-2) /LPF Urine Test NEGATIVE (NEGATIVE) Urine Opiates Screen Not Detected (Not Detect) Ur Buprenorphine Scrn Not Detected (Not Detect) ng/mL Ur Oxycodone Screen Not Detected (Not Detect) ng/mL Urine Methadone Screen Not Detected (Not Detect) ng/mL Urine Fentanyl Screen Not Detected (Not Detect) Ur Barbiturates Screen Not Detected (Not Detect) Ur Phencyclidine Scrn Not Detected (Not Detect) Ur Amphetamines Screen Not Detected (Not Detect) U Benzodiazepines Scrn Not Detected (Not Detect) Urine Cocaine Screen Not Detected (Not Detect) U Marijuana (THC) Screen POSITIVE H (Not Detect) Prescription Management I considered prescription management with: Antibiotic Discharge Plan Discharge Clinical Impression: Anxiety attack Patient Disposition: Home, Self-Care Instructions: Panic Attack (ED) Prescriptions: New cephalexin 500 mg tablet 500 mg PO Q8H 7 Days Qty: 21 0RF No Action chlorpromazine 100 mg tablet 1 tab PO BEDTIME PRN (Reason: Nausea And Vomiting) hydroxyzine pamoate 25 mg capsule 25 mg PO BID PRN (Reason: Anxiety) quetiapine 100 mg Tablet 100 mg PO BEDTIME buspirone 15 mg Tablet 15 mg PO BID omeprazole 40 mg Capsule,Delayed Release(Dr/Ec) 40 mg PO BID@0630,1630 Qty: 120 2RF fluticasone propionate 50 mcg/actuation spray,suspension 1 spray intranasal DAILY PRN (Reason: Allergy Symptoms) alcohol swabs Pads, Medicated 1 pad TOPICAL QIDACHS Qty: 100 0RF Rx Instructions: Use four times a day or as directed. insulin lispro [Humalog KwikPen Insulin] 100 unit/mL insulin pen 1 sliding scale dose subcut QIDACHS MDD 40 units Qty: 15 0RF Rx Instructions: Blood Sugar: <150 - 0 units 151-200 - 2 units 201-250 - 4 units 251-300 - 6 units 301-350 - 8 units >350 - 10 units insulin glargine [Lantus Solostar U-100 Insulin] 100 unit/mL (3 mL) insulin pen 24 unit SUBCUT BID Qty: 15 1RF (DME) pen needle, diabetic 32 gauge x 1/4 needle Qty: 100 0RF Rx Instructions: Use four times a day or as directed. metformin 1,000 mg tablet 1,000 mg PO BID Qty: 60 0RF gabapentin 100 mg capsule 100 mg PO TID ergocalciferol (vitamin D2) 1,250 mcg (50,000 unit) capsule 1,250 mcg PO QWEEK sertraline [Zoloft] 100 mg tablet 100 mg PO DAILY melatonin 10 mg capsule 10 mg PO BEDTIME PRN (Reason: Insomnia) topiramate [Topamax] 25 mg capsule, sprinkle 25 mg PO BEDTIME risperidone 2 mg tablet 2 mg PO DAILY atorvastatin 40 mg tablet 40 mg PO BEDTIME Qty: 30 11RF (DME) blood-glucose meter [FreeStyle Lite Meter] Kit See Rx Instructions .ROUTE .MEDSUPPLY Qty: 1 0RF Rx Instructions: As directed (DME) FreeStyle Lite Strips Strip See Rx Instructions .ROUTE .MEDSUPPLY Qty: 150 11RF Rx Instructions: As directed four times a day (DME) lancets [FreeStyle Lancets] 28 gauge misc See Rx Instructions .ROUTE .MEDSUPPLY Qty: 200 11RF Rx Instructions: 4 times a day Stand Alone Forms: Work/School Release Print Language: Indonesian
[2025-02-13 16:53] LABS: UACC Culture Trigger YES
[2025-02-13] MEDS: Lactated Ringers 1,000 ML 999 ML IV (17:07)
--- NOTE | 2025-02-13 17:09 | PC.NURSE ---
Dr caldera placed #20 in RFA, medicated per MAY. patient iv noted to have infiltrated. ED provider made aware. fluids paused at this time
--- NOTE | 2025-02-13 17:18 | PC.NURSE ---
patient presents to the ED with complaints of abd pain/vomiting x4days, patient states she has not had a BM x4days but has been passing gas. when entering the room to triage patient after ems drop off patient found to be laying on her stomach in bed. patient able to sit up for vital signs but is noted to be thrashing around and not able to sit still. patient states she was recently at [facility] for 24hrs and all they gave her was po zofran and she was not feeling better so she came here. patient was offered po zofran due to difficult iv access and she refused. Ed provider Dr caldera went into room to eval patient and placed a #20 US guided iv in her RFA. patient was medicated per MAR, LR started when it was noted that the IV had infiltrated. patient became very upset, standing up and walking around room and yelling. Dr caldera notified of IV infiltration and patient behavior, he went in and spoke to patient about IM meds to help with anxiety and patient agreed. patient was medicated per MAR with haldol and versed in bilat deltoids. patient informed she should remain laying down, side rails were raised for patient safety. a second attempt for IV access will be made when patient is more calm. of note during IM injections patient was hitting herself in the abd stating I cant take this anymore . patient noted to be very animated after IM injections stating this better work I have a high tolerance . patient refusing to wear gown, will only keep her bra and leggings on.
--- NOTE | 2025-02-13 17:41 | PC.NURSE ---
patient now noted to be asleep, resp even and unlabored. patient satting 98% on room air
--- NOTE | 2025-02-13 18:19 | PC.NURSE ---
patient woke up, started wandering around unit, attempting to shower in CT scan. patient returned to room, requesting to leave, IV removed, given dc papers.
--- OUTSIDE RECORDS SUMMARY | 2025-02-14 04:28 | XMS_ITS | Encounter Summary ---
Author Organization [employer] Address [address] [facility] [address] [place] [address] Care Team Providers Care Core Shaper Top Name Role Phone Daphne Cortez MD Primary Care Provider + Jw Degroot PharmD Unavailable [phone] Reason for Visit * Reason Onset Date Comments Appointment Request 04/11/2024 Encounter Details Date Type Department Care Team ([facility] st Contact Info) Description 04/11/2024 Telephone [facility] MEDICINE [address] [place] [address] Daphne Cortez MD [address] [place], [place] [phone] Appointment Request Social History Tobacco Use Types Packs/Day Years Used Date Smoking Tobacco: Former Cigarettes Passive Smoke Exposure: Current Smokeless Tobacco: Never Alcohol Use Standard Drinks/Week Comments Never 0 (1 standard drink = 0.6 oz pur e alcohol) Depression Answer Date Recorded Patient Health Questionnaire-9 Score 12 11/03/2023 Patient Health Questionnaire-9 Score 12 11/03/2023 Last PHQ-9: Questionnaire Data Not on file 0 11/03/2023 Housing Stability Answer Date Recorded What is your housing situation today? I have housing today, but I am worried about losing housing in the future 11/03/[address] you li ve. Do you have problems with any of the following? None of the above 11/03/2023 Food Insecurity Answer Date Recorded Within the past 12 months, y ou worried that your food would run out before you got money to buy more: Never True 01/10/2023 Within the past 12 months,th e food you bought just didn't last and you didn't have enough money to get more: Never True Transportation Answer Date Recorded In the past 12 months, has l ack of transportation kept you from medical appts, meetings, work or from getting things needed for daily living? Yes, it has kept me from medical appointments or getting medications.;Yes, it has kept me from non-medical meetings, work, or getting things that I need 11/03/2023 Utilities Answer Date Recorded In the past 12 months, has t he electric, gas, oil or water company threatened to shut off services in your home? I am not sure 11/03/2023 Depression Answer Date Recorded Patient Health Questionnaire-2 Score 2 11/03/2023 Internet Access Answer Date Recorded Internet Access Q1 Yes 11/27/2023 Internet Access Q2 Not on file 11/27/2023 Comments No Sex and Gender Information Value Date Recorded Sex Assigned at Female 01/25/2022 10:36 AM EDT Legal Sex Female 10:36 AM EDT Gender Identity Choose not to disclose 10:36 AM EDT Sexual Orientation Bisexual 01/25/2022 10 :36 AM EDT documented as of this encounter Miscellaneous Notes * Telephone Encounter - Verito Sen - 04/11/2024 1:01 PM EST Tc from pt requesting reschedule 03/22 appt with Jw. documented in this encounter Plan of Treatment Not on file documented as of this encounter Visit Diagnoses Not on filedocumented in this encounter Additional Health Concerns Assessment Noted Time PHQ-9 Depression Total Score: 12 024 10:25 AM EDT documented as of this encounter Care Teams Core Shaper Top Relationship Specialty Start Date End Date Daphne Cortez MD [address] [place] [address] PCP - General Family Medicine 11/02/19 Jw Degroot, Eduar [address] [place] [address] Pharmacist Internal Medicine 11/29/23 documented as of this encounter
--- OUTSIDE RECORDS SUMMARY | 2025-02-14 04:28 | XMS_ITS | Encounter Summary ---
Author Organization [employer] Address [address] [facility] [address] [place] [address] Care Team Providers Care Electrician Manager Name Role Phone Daphne Cortez MD Primary Care Provider + Jw Degroot PharmD Unavailable [phone] Encounter Details Date Type Department Care Team ([facility] st Contact Info) Description 05/13/2022 Abstract [facility] MEDICINE [address] [place], [place] [phone] Daphne Cortez MD [address] [place], [place] [phone] Social History Tobacco Use Types Packs/Day Years Used Date Smoking Tobacco: Every Day Cigarettes Smokeless Tobacco: Never Alcohol Use Standard Drinks/Week Comments Never 0 (1 standard drink = 0.6 oz pur e alcohol) Comments Unknown Sex and Gender Information Value Date Recorded Sex Assigned at Female 01/25/2022 10:36 AM EDT Legal Sex Female 10:36 AM EDT Gender Identity Choose not to disclose 10:36 AM EDT Sexual Orientation Bisexual 01/25/2022 10 :36 AM EDT COVID-19 Exposure Response Date Recorded In the last 10 days, have yo u been in contact with someone who was confirmed or suspected to have Coronavirus/COVID-19? No / Unsure 05/13/2022 11:04 AM EST documented as of this encounter Plan of Treatment Not on file documented as of this encounter Procedures Procedure Name Priority Date/Time Associated Diagnosis Comments CBC AND DIFFERENTIAL - WAM AND NON-WAM Routine 10/06/2021 11:20 AM EDT HEPATIC FUNCTION PANEL Routine 10/06/2021 11:20 AM EDT LIPID PANEL, STANDARD Routine 10/06/2021 11:20 AM EDT LIPID PANEL, STANDARD Routine 10/06/2021 11:20 AM EDT BASIC METABOLIC PANEL Routine 10/06/2021 11:20 AM EDT BASIC METABOLIC PANEL Routine 10/06/2021 documented in this encounter Results * Lipid Panel, Standard (10/06/2021 11:20 AM EDT) HDL Cholesterol 46 35 - 70 mg/dL LDL Cholesterol 121 mg/dL Blood Venous blood specimen / Unknown [facility] Provider LAB BLOOD ORDERABLES Estela l Result * (ABNORMAL) CBC and differential (10/06/2021 11:20 AM EDT) Pathologist [facility] Hemoglobin 12.0(A) 13.5 - 16.0 g/dL Hematocrit 38(A) 41 - 46 % Platelets 325 150 - 399 10*3/uL Auto WBC 10.9(A) 3.3 - 10.0 10*3/uL Blood Venous blood specimen / Unknown [facility] Provider LAB BLOOD ORDERABLES Estela l Result * Hepatic Function Panel (10/06/2021 11:20 AM EDT) Pathologist [facility] Alkaline Phosphatase 65 U/L ALT (SGPT) 8 <=1,000 U/L AST 12 U/L Total Bilirubin 0.3 0.1 - 1.4 mg/dL Blood Venous blood specimen / Unknown [facility] Provider LAB BLOOD ORDERABLES Estela l Result * Lipid Panel, Standard (10/06/2021 11:20 AM EDT) Pathologist [facility] Triglycerides 133 40 - 160 mg/dL Blood Venous blood specimen / Unknown [facility] Provider MD LAB BLOOD ORDERABLES Esetla l Result * Basic Metabolic Panel (10/06/2021 11:20 AM EDT) Glucose 146 mg/dL BUN 15 4 - 21 mg/dL Creatinine 0.9 mg/dL Potassium 4.5 3.4 - 5.5 mmol/L Blood Venous blood specimen / Unknown Result [facility] Provider MD LAB BLOOD ORDERABLES Estela l Result * (ABNORMAL) Basic Metabolic Panel (10/06/2021) Sodium 135(A) 137 - 147 mmol/L Blood Venous blood specimen / Unknown Result [facility] Provider LAB BLOOD ORDERABLES Estela l Result documented in this encounter Visit Diagnoses Not on filedocumented in this encounter Care Teams Electrician Manager Relationship Specialty Start Date End Date Daphne Cortez MD [address] [place] [address] PCP - General Family Medicine 11/02/19 Jw Degroot, DannyD [address] [place] [address] Pharmacist Internal Medicine 11/29/23 Marcela Dodson Safety Deposit Clerk 12/30/22 04/01/23 documented as of this encounter
--- OUTSIDE RECORDS SUMMARY | 2025-02-14 04:28 | XMS_ITS | Encounter Summary ---
Author Organization [employer] Address [address] [facility] [address] [place] [address] Care Team Providers Care Collections And Archives Director Name Role Phone Daphne Cortez MD Primary Care Provider + Jw Degroot PharmD Unavailable [phone] Encounter Details Date Type Department Care Team (Late st Contact Info) Description 06/10/2023 Orders Only [facility] MEDICINE [address] [place], [place] [phone] Susana Greene MD [address] [place], [place] [phone] Social History Tobacco Use Types Packs/Day Years Used Date Smoking Tobacco: Former Cigarettes Passive Smoke Exposure: Current Smokeless Tobacco: Never Alcohol Use Standard Drinks/Week Comments Never 0 (1 standard drink = 0.6 oz pur e alcohol) Depression Answer Date Recorded Patient Health Questionnaire-9 Score 10 05/27/2023 Patient Health Questionnaire-9 Score 10 05/27/2023 Last PHQ-9: Questionnaire Data Not on file 0 05/27/2023 Housing Stability Answer Date Recorded What is your housing situation today? I have [employer] 01/10/[address] you li ve. Do you have problems with any of the following? None of the above 01/10/2023 Food Insecurity Answer Date Recorded Within the [...] kept me from medical appointments or getting medications. 01/03/2023 Utilities Answer Date Recorded In the past 12 months, has t he electric, gas, oil or water company threatened to shut off services in your home? No 01/10/2023 Depression Answer Date Recorded Patient Health Questionnaire-2 Score 2 05/27/2023 Comments Unknown Sex and Gender Information Value Date Recorded Sex Assigned at Female 01/25/2022 10:36 AM EDT Legal Sex Female 10:36 AM EDT Gender Identity Choose not to disclose 10:36 AM EDT Sexual Orientation Bisexual 01/25/2022 10 :36 AM EDT documented as of this encounter Plan of Treatment Not on file documented as of this encounter Visit Diagnoses Not on filedocumented in this encounter Additional Health Concerns Assessment Noted Time PHQ-9 Depression Total Score: 10 024 12:48 PM EST documented as of this encounter Care Teams Collections And Archives Director Relationship Specialty Start Date End Date Daphne Cortez MD [address] [place] [address] PCP - General Family Medicine 11/02/19 Jw Degroot PharmD [address] [place] [address] Pharmacist Internal Medicine 11/29/23 documented as of this encounter
--- OUTSIDE RECORDS SUMMARY | 2025-02-14 04:28 | XMS_ITS | Encounter Summary ---
Author Organization [employer] Address [address] [facility] [address] [place] [address] Care Team Providers Care Replenishment Analyst Name Role Phone Daphne Cortez MD Primary Care Provider + Jw Degroot PharmD Unavailable [phone] Reason for Visit * Reason Onset Date Comments Appointment Request 03/14/2024 Encounter Details Date Type Department Care Team ([facility] st Contact Info) Description 03/14/2024 Telephone [facility] MEDICINE [address] [place], [place] [phone] Daphne Cortez MD [address] [place], [place] [phone] Appointment Request Social History Tobacco Use Types [...] encounter Miscellaneous Notes * Telephone Encounter - Viet Morris - 03/14/2024 9:15 AM EST Tc from pt requesting to r/s CDTM Apt for 03/15. Contact pt at [phone] documented in this encounter Plan of Treatment Not on file documented as of this encounter Visit Diagnoses Not on filedocumented in this encounter Additional Health Concerns Assessment Noted Time PHQ-9 Depression Total Score: 12 024 10:25 AM EDT documented as of this encounter Care Teams Replenishment Analyst Relationship Specialty Start Date End Date Daphne Cortez MD [address] [place] [address] PCP - General Family Medicine 11/02/19 Jw Degroot, Eduar [address] [place] [address] Pharmacist Internal Medicine 11/29/23 documented as of this encounter
--- OUTSIDE RECORDS SUMMARY | 2025-02-14 04:28 | XMS_ITS | Clinical Summary ---
Author Organization [employer] Address [address] [place] [address] Care Team Providers Care Supervisor Contingents Name Role Phone Daphne Cortez MD Primary Care Provider + Jw Degroot PharmD Unavailable [phone] Allergies Active Allergy Reactions Criticality Noted Date Comments Ibuprofen 05/23/2019 Morphine 09/01/2020 Medications omeprazole (PriLOSEC) [address] capsuleIndications: Erosive esophagitis Take 1 capsule (40 mg) by mouth before breakfast. Do not crush or chew. 90 capsule 3 3 Active Blood Pressure Monitor kit Use as directed 3x/week 1 kit 3 Active fluticasone (Flonase) 50 MCG/ACT nasal spray INSTILL 1-2 SPRAYS IN EACH NOSTRIL ONCE DAILY IN THE MORNING. 48 g 3 Active albuterol (Ventolin HFA) 108 (90 Base) MCG/ACT inhaler Inhale 2 puffs every 6 (six) hours if needed for wheezing. 18 g 2 3 Active metFORMIN XR (Glucophage-XR) 500 MG 24 hr tablet Take 1 tablet (500 mg) by mouth 2 times daily. Do not crush, chew, or split. DOSE CHANGED 180 tablet 3 4 Active medroxyPROGESTERone (Depo-Provera) 150 MG/ML injection Inject 1 mL (150 mg) into the shoulder, thigh, or buttocks every 3 (three) months. 1 mL 3 4 Active insulin lispro (HumaLOG KWIKPEN) 100 UNIT/ML injectionIndication s:Type 2 diabetes mellitus with hyperglycemia, with long-term current use of insulin (HCC) <150 - 0 units, 151-200 - 2 units, 201-250 - 4 units, 251-300 - 6 units, 301-350 - 8 units, >350 - 10 units 15 each 11 4 Active insulin glargine (Lantus) 100 UNIT/ML pen Inject 48 Units under the skin in the morning. 15 mL 11 4 Active TRUEplus Lancets 33G misc Use to check BS TID 100 each 11 4 Active Acetaminophen Extra Strength 500 MG tablet Take 1 tablet (500 mg) by mouth every 8 (eight) hours if needed for moderate pain or fever. 60 tablet 4 Active atorvastatin (Lipitor) 40 MG tabletIndications:H yperlipidemia associated with type 2 diabetes mellitus (HCC) TAKE 1 TABLET BY MOUTH EVERY MORNING 90 tablet 1 4 Active Insulin Pen Needle (pen needle 06/10 ) 31G x 5 mm miscIndications:Typ e 2 diabetes mellitus with hyperglycemia, with long-term current use of insulin (HCC) Use 3x/d for Insulin 90 each 4 Active gabapentin (Neurontin) 400 MG capsule TAKE TWO CAPSULES BY MOUTH 3 (THREE) TIMES A DAY 4 Active ARIPiprazole (Abilify) 20 MG tablet Take 20 mg by mouth in the morning. 4 Active busPIRone (Buspar) 30 MG tablet TAKE 1 TABLET BY MOUTH two (2) times a day 4 Active prazosin (Minipress) 5 MG capsule TAKE 1 CAPSULE BY MOUTH ONCE DAILY AT BEDTIME 4 Active desvenlafaxine (Pristiq) 50 MG 24 hr tablet Take 50 mg by mouth Once per day. 4 Active zolpidem (Ambien) 10 MG tablet Take 10 mg by mouth at bedtime. 4 Active fluconazole (Diflucan) 150 MG tabletIndications:A cute vaginitis Take 1 tablet by oral route immediately. Repeat in 1w 2 tablet 4 Active clotrimazole (Lotrimin) 1 % creamIndications:Ac juan vaginitis Apply topically 2 times daily. 30 g 4 Active Continuous Glucose Sensor (FreeStyle Daaj 2 Sensor) miscIndications:Unc ontrolled type 2 diabetes mellitus with hyperglycemia (HCC) USE DIRECTED CHANGE EVERY 14 DAYS 2 each 2 4 Active Alcohol Swabs (Alcohol Pads) 70 % padsIndications:Typ e 2 diabetes mellitus with hyperglycemia, with long-term current use of insulin (HCC) USE 3 (THREE) TIMES A DAY DIRECTED 100 each 11 4 Active SUMAtriptan (Imitrex) 50 MG tabletIndications:C hronic nonintractable headache, unspecified headache type Take 1 tablet (50 mg) by mouth 1 (one) time if needed for migraine for up to 36 doses. May repeat dose once in 2 hours if no relief. Do not exceed 2 doses in 24 hours. 9 tablet 3 4 Active Continuous Glucose Reticle Printer ([employer] Daja 2 [place]) deviceIndications:U ncontrolled type 2 diabetes mellitus with hyperglycemia (HCC) USE DIRECTED TO TEST BLOOD SUGAR EVERY 8 HOURS 1 each 4 Active Tirzepatide (Mounjaro) 7.5 MG/0.5ML solution auto-injectorIndica tions:Type 2 diabetes mellitus with hyperosmolarity without coma, without long-term current use of insulin (HCC) Inject 7.5 mg under the skin 1 (one) time per week. 2 mL 5 5 Active Active Problems Problem Noted Date Diagnosed Date Encounter for screening for cervical cancer 06/2023 Assessment & Plan (12/30/2023 1:07 PM EDT): Pelvic exam today wnl FU pap smear results/HPV/STI testing and will call back PRN positive results or FU in 3 months Pt feels safe at home no concern for DV/STDs Counseled regarding STI prevention If today's pap smear/co testing is normal next one will be due in 3 years. Acute vaginitis 12/30/2023 Assessment & Plan (12/30/2023 1:08 PM EDT): Most likely candidiasis, treatment Diflucan x 2 and clotrimazole cream. Follow up STI testing. Pelvic pain 12/30/2023 Assessment & Plan (12/30/2023 2:28 PM EDT): It could be related to a fibroid vs STI? Order STI labs, pelvic US Take Ibuprofen prn FU w me in 4w Dietary counseling 11/03/2023 Exercise counseling 11/03/2023 Class 3 severe obesity due t o excess calories with serious comorbidity and body mass index (BMI) of 40.0 to 44.9 in adult 11/03/2023 Assessment & Plan (11/03/2023 1:30 PM EDT): Discussed re weight reduction options including exercise, life style modifications, diet Declines referral to breaker tender or weight reduction program.. Recommended to decrease soda and sugary beverage consumption, increase protein intake with meals (at least 1 portion of protein with each meal) to assist with satiety, increase dietary fiber Recommended at least 150 min/week of moderate intensity exercise. Encounter for surveillance of injectable contrac eptive 11/03/2023 Encounter for initial prescr iption of injectable contraceptive 05/27/2023 Assessment & Plan (11/03/2023 1:29 PM EDT): Depo provera inj today Will do test prior to inj. Assessment & Plan (05/27/2023 1:15 PM EST): She agreed to start Depo provera today, will obtain test and start injections every 3 m Fu w/ RN Counseled to use condoms every time, recent STI test done and we discussed about fu closely w/ STI clinic Decline PrEP Dry skin 04/22/2023 Assessment & Plan (04/22/2023 12:03 PM EST): On feet, Rx lac-hydrin Non compliance w medication regimen 04/22/2023 Assessment & Plan (04/22/2023 2:30 PM EST): Pt forget to take medications many time, sometimes forgets appointments Will talk with VNA to see if she can do daily visits for a few weeks to improve compliance and montes see if pt can be switched to our medbox program as it seems med bubble from current pharmacy are not working to improve medication compliance Refer to care management Will refer to CDTM at next RV if she is ready to be more compliant with frequent appts. Candidal vulvovaginitis 01/17/2023 Assessment & Plan (01/17/2023 4:39 PM EDT): Rx Fluconazole 150 mg x 1 + Lotrisone cream + zinc oxide cream on vulvar area bid Counseled to control her DM, use her meds as rx. FU self swab results Bacterial vaginosis 12/13/2022 Assessment & Plan (04/22/2023 12:03 PM EST): Diagnosed last week, pt has not started flagyl I called pharmacy that to have medication ready for her, she's aware she needs to pick it up today Assessment & Plan (12/13/2022 3:47 PM EDT): Rx metronidazole cancelled form pharmacy (it was ready but patient apparently went to pick it up too soon) due to need to treat strep pharyngitis as well Rx clindamycin x 7d I gave her a rx fluconazole to use prn chante vaginitis sxs (she's familiar with htose) Elevated blood pressure reading 12/08/2022 Assessment & Plan (12/13/2022 3:50 PM EDT): No hx htn but has multiple RF. Repeated one is 160/98 FU BP in 3w w RN, it could be related to acute illness, asthma? Order labs Counseled re low salt diet/increase moderate physical activity. Check home BP BIW and prn CP/PINK/YOUNGER Non smoking patient. Assessment & Plan (12/11/2022 7:14 PM EDT): Unclear if related to PINK? Check BP at home Encouraged tighter control of DM, remain hydrated Keep symptom (PINK,CP,Dizziness) diary. FU in 1-2m w me. Preventative health care 10/27/2022 Assessment & Plan (11/03/2023 1:26 PM EDT): Discussed with patient re increase fresh fruit and vegetable intake. Counseled re moderate exercise as tolerated, up to 20min/d Patient feels safe at home. PAP smear: Overdue, missed previous appt with me, will schedule one. Mammogram: UTD, next one due on 11/2024 Eye exam: UTD, Next one due on 05/2024 Lipids/FBS: UTD, next one due 05/2024 Vaccinations: Overdue, she declined all Izs today. She's aware that she will need covid booster in 3m. Dental visit: UTD, next one due on 12/2023 Assessment & Plan (10/27/2022 12:20 PM EDT): Discussed with patient re increase fresh fruit and vegetable intake. Counseled re moderate exercise as tolerated, up to 20min/d Patient feels safe at home. PAP smear will schedule pap smear once DM and other medications issues are better controlled Mammogram will order mammogram Eye exam refer to our optometry clinic CRC screen due on 2028 Lipids/FBS up to date, next one due November 2022 Vaccinations we discussed about iz especially due to history of splenectomy and she declined any iz today Dental visit I gave her information to make an appointment in our dental clinic or other clinics that may be more convenient for her Hyperlipidemia associated with type 2 diabetes juan francisco hernandez 10/27/2022 Assessment & Plan (10/27/2022 12:37 PM EDT): Mild hyperTG start atorvastin fu lipids in 3 months We discussed re rx options. She wants to be more strict with life style modifications. Recommended moderate amount of exercise and increased consumption of fruit, vegetables, fish and high fiber foods. We discussed about avoiding consumption of highly saturated fats or trans fats. Vitamin D deficiency 10/27/2022 Assessment & Plan (10/27/2022 12:39 PM EDT): start vit d supplementation every week x 6 months counseled out door exercise Chronic nonintractable headache 10/27/2022 Assessment & Plan (04/22/2023 12:02 PM EST): Pt has migraine likely triggered by substance use, hyperglycemia, anxiety Counseled pt to treat above conditions Remain hydrated and take Imitrex prn Assessment & Plan (12/11/2022 7:13 PM EDT): Use Imitrex prn Unclear if related to elevated BP,migraine? Hyperglycemia? Poor hydration? FU BP in 1m Assessment & Plan (10/27/2022 12:36 PM EDT): Pt with muitple conditions, hyperglycemia and poor fluid intake which could be triggering today's episode counseled regarding hydration and better control of DM use tylenol PRN and FU with me in 1 month If symptoms do not resolve, she should go to ED at pt request medications are being [facility] to [facility] [address] Screening mammogram for breast cancer 10/27/2022 Type 2 diabetes mellitus 05/13/2022 Assessment & Plan (11/03/2023 1:31 PM EDT): Uncontrolled. Humalog 8u STTA , will check fgstk before discharge. We dicussed about more compliance w diet, avoiding sweetened beverages. Will refer again to VNA to monitor, administer and remind her about meds, DM education and endo appts. Continue Trulicity 3mg+Lantus 35u/d and will adjust with VNA , Humalog AC meals+ metformin same dose Counseled re more frequent low calorie/carb meals. Check fgstk 3x/daily Encouraged physical activity as tolerated. FU in with CDTM for CGM education. Assessment & Plan (05/27/2023 3:20 PM EST): Uncontrolled., we dicussed about more compliance w diet, avoiding sweetened beverages. She lives independently with room mates, agreed to have a VNA to monitor, administer and remind her about meds, DM education and endo appts. Will increase Trulicity to 1.5mg Continue on Lantus, Humalog + metformin same dose Counseled re more frequent low calorie/carb meals. Check fgstk daily Encouraged physical activity as tolerated. FU in 6 wks w/ glucometer Assessment & Plan (04/22/2023 2:31 PM EST): Uncontrolled, BS seems to be improving since Insulin was restarted. We discussed in length regarding mediations and diet compliance. She had brownie w ice coffee this morning and did not have Humalog. Cont lantus 24 units, reports pt feels comfortable w medications Restart Humalog sliding scale before each meal, will try to set her up for CGTM She's aware she needs to be complaint w education and fu gregg Change to metformin ER 500mg BID to see if better tolerated Restart Trulicity 0.75mg FU in 2 wks w RN to check for med tolerance and BS levels and will adjusted medications slowly Fu w me in 4-5 wks Pt needs to bring glucometer and all meds to this appointment Decline flu and covid IZ Assessment & Plan (01/17/2023 4:40 PM EDT): Uncontrolled. Continue tresiba and trylicity Counseled to use Humalog AC melas and be more compliant with low sugar diet, avoid sugary drinks, sodas. FU w me as scheduled next month Assessment & Plan (12/11/2022 7:18 PM EDT): FU A1c in 2m No change in meds. Assessment & Plan (10/27/2022 12:40 PM EDT): A1C improving still not at goal. Increase trulicity to 1.5mg per week, continue humalog, tresiba and metform same dose (refill sent to [facility] [address] at pt request) Counseled re more frequent low calorie/carb meals. Encouraged physical activity as tolerated. Will try to work with the pharmacy or someone to help with pt to keep track of medication refills as refills had been sent to another [facility] store until 2023 and pt reportedly was not delivered these medications Assessment & Plan (06/25/2022 1:59 PM EDT): Uncontrolled. Unfortunately pharmacy has not delivered her trulicity or tresiba so far. No evidence of DKA today, pt will go home use novalog and have lunch. Prescription for tresiba sent to our 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 Continue metformin 500 BID and FU blood sugar with the nurse in 2 weeks and with me in 1 month. Will hold tresiba and start it in 2 weeks if needed. Assessment & Plan (05/13/2022 12:15 PM EST): Uncontrolled. Restart Trulicity and continue Tresiba 56 units + humalog sliding scale and Metformin. Order labs and FU with me in 4 weeks. Slow transit constipation 05/13/2022 Assessment & Plan (10/27/2022 12:39 PM EDT): Start colace BID, increase water intake fu with me in 1 month Recurrent major depression in partial remission 05/13/2022 Assessment & Plan (10/27/2022 12:38 PM EDT): Pt feels safe at home, no SI or HI at this time uncear if pt is being followed by MH provider, no medication prescriptions seen on module I will call [facility] pharmacy to check psych medications, pt reports that she needs her medications especially adderall (not on med list) Assessment & Plan (05/13/2022 12:16 PM EST): Pt has been not taking medications as prescribed for at least 3 months. She apparently never had a MH evaluation after crisis last year. PT has an upcoming appointment with psych through [facility] will talk with case management rn for medication reminder, refills, and appointment reminders. Pt has been sober for more than 3 months now, encouraged her to continue being sober. Refills for sertraline 100mg, gabapentin 100 mg TID, Seroquel 100 mg qhs, Thorazine 100 mg/day, Buspar 15 mg BID, Hydroxyzine 25 mg BID PRN, and Prazosin 1mg qhs. She feels safe at home and she is able to reach out for safety. Obstructive sleep apnea syndrome 05/13/2022 Mild intermittent asthma 05/13/2022 Assessment & Plan (12/13/2022 3:45 PM EDT): Albuterol updraft today Continue albuterol inh q4-6h prn at home FU w me in 4w. Will need Influenza and Covid booster then.FU COVID and Influenza PCR Tests, initial ones Are neg Long toenail 05/13/2022 Gastroesophageal reflux disease 05/13/2022 Assessment & Plan (06/25/2022 1:59 PM EDT): Pt off omeprazole, appaarently not delivered by pharmacy. 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 Start omeprazole 40 mg BID and recommended a liquid diet and advance as tolerated. No evidence of rectal bleeding and hemoglobin is normal today (12). pt to go to ED if symptoms do not resovle within 24 hours. Apnea 05/13/2022 Amenorrhea 05/13/2022 Erosive esophagitis 05/13/2022 Overview (05/13/2022): EGD on 04/23/22 at [facility]/ [facility] Assessment & Plan (10/24/2022 10:40 AM EDT): Refill of omeprazole 40mg daily sent to the pharmacy Assessment & Plan (05/13/2022 12:16 PM EST): She should be on PPI BID for at least 2 months, will check with pharmacy about covering PPI and send it. Counseled to avoid alcohol and drugs Will recheck hemoglobin at next visit. Resolved Problems Problem Noted Date Diagnosed Date Resolved Date Streptococcal pharyngitis 12/13/2022 Assessment & Plan (12/13/2022 3:49 PM EDT): Clindamycin x 10d sent to pharmacy, given that she needs to be treated for BV as well. Tylenol prn Increase fluid intake, use throat lozenges Air droplets precautions, wear face mask inside the home and with intimate partner x 3d at least. Re consult prn Vaginal discharge 06/25/2022 12/30/2023 Assessment & Plan (05/27/2023 1:13 PM EST): Will start fluconazole for potential vaginal candidiasis, she will reconsult prn for vaginal swab if Sx do not resolve after next wk Assessment & Plan (04/14/2023 2:23 PM EST): Likely yeast infection BV panel and CG ordered Fluconazole prescribed F/u with PCP Assessment & Plan (01/17/2023 4:39 PM EDT): Vaginal candidiasis Assessment & Plan (12/11/2022 7:18 PM EDT): Most likely BV, d/w her that it could be related to sexual activity and change on vaginal ph, not an STI Recommended to avoid douches, scented vaginal products, tight leggings. Flagyl x 7d FU results of STI testing. I told her that test needs to be repeated in 3w if she doesn't have her menses again. Started Hep B series Will have STI tests repeated in 2m, counseled re use of condoms, I gave her both male and female samples. Assessment & Plan (06/25/2022 2:02 PM EDT): Pt complains of whitish pruriginal vaginal discharge, she is consistently having protected intercourse most likely vaginal candidaisis secondary to DM I will presribe fluconazole x1, self swab ordered to r/o sti COVID-19 05/17/2022 10/24/2022 Overview (05/17/2022): 05/14/22 ED visit H/O splenectomy 05/13/2022 12/30/2023 Assessment & Plan (10/27/2022 12:37 PM EDT): Pt refused to have pneumovax and other appropriate IZ Flexural eczema 05/13/2022 12/30/2023 Encounters Date Type Department Care Team Description 01/21/2025 Telephone [facility] [address] [place] [address] Daphne Cortez MD from Last 3 Months Immunizations Immunization Administration Dates Next Due Hep B, adult 12/08/2022 TD (adult), 2 Lf tetanus tox oid, preservative free, adsorbed 12/08/2005 Tdap 05/23/2012 Social History Tobacco Use Types Packs/Day Years Used Date Smoking Tobacco: Former Cigarettes Passive Smoke Exposure: Current Smokeless Tobacco: Never Tobacco Cessation:Counseling Given: Not Answered Alcohol Use Standard Drinks/Week Comments Never 0 [...] Orientation Bisexual 01/25/2022 10 :36 AM EDT Last Filed Vital Signs Vital Sign Reading Time Taken Comments Blood Pressure 124/82 04/18/2024 11:17 AM EST Pulse 80 04/18/2024 11:17 AM EST Temperature 36.7 C (98.1 F) 12/30/2023 12:28 PM EDT Respiratory Rate 20 12/30/2023 12:28 PM EDT Oxygen Saturation 100% 12/30/2023 12:28 PM EDT Inhaled Oxygen Concentration - - Weight 122 kg (269 lb 8 oz) 12/30/2023 12:28 PM EDT Height 177.8 cm (5' 10 ) 12/30/2023 12:28 PM EDT Body Mass Index 38.67 12/30/2023 12:28 PM EDT Plan of Treatment Health Maintenance Due Date Last Done Comments Disability Screening 1982 HIB Vaccines (1 of 1 - Risk 1-dose series) 01/23/1984 Meningococcal Vaccine (1 - Risk 2-dose series) 1984 Meningococcal B Vaccine (1 of 4 - Increased Risk) 1992 Alcohol/Substance Use Screening 1994 Family Planning (PISQ) 1997 HPV Vaccines (1 - 3-dose series) 1997 Pneumococcal Vaccine: Pediatrics (0 to 5 Years) and At-Risk Patients (6 to 49) Years (1 of 2 - PCV) 2001 DTaP/Tdap/Td Vaccines (2 - Td or Tdap) 05/23/2022 05/23/2012, 12/08/2005 Hepatitis B Vaccines (2 of 3 - 19+ 3-dose series) 01/05/2023 12/08/2022 Lipid Panel 06/26/2023 06/25/2022, 09/25, 10/06/2021, Additional history exists Diabetes: Urine Protein Screening 10/28/2023 10/27/2022, 10/16/2020, 10/16/2020 Mammogram 12/02/2023 12/01/2022 Diabetes: Foot Exam 04/22/2024 04/22/2023, 04/22/2023, 04/22/2023, Additional history exists Depression Monitoring 05/05/2024 11/03/2023, 024 Diabetes: Hemoglobin A1C 07/17/2024 025, 11/03/2023, 04/22/2023, Additional history exists SDOH Screening 11/02/2024 11/03/2023 COVID-19 Vaccine ( - season) 2024 Influenza Vaccine (#1) 2024 Tobacco Screening 12/29/2024 12/30/2023 Eye Exam 05/18/2025 05/18/2023, 04/29, 05/18/2023, Additional history exists Cervical Cancer Screening 12/29/2028 HPV/Cotest 12/29/2028 12/30/2023 Pap Smear 12/29/2028 12/30/2023 Zoster Vaccines (1 of 2) 2032 RSV Patients and Patients Aged 60 years or older (1 - 1-dose 75+ series) 2057 HIV Screening Completed 10/27/2022, 10/06/2021 Hepatitis C Screening Completed 10/27/2022, 022 Hepatitis A Vaccines Aged Out No long er eligible based on patient's age to complete this topic IPV Vaccines Aged Out No longer eligi ble based on patient's age to complete this topic RSV under 20 months Aged Out No longe r eligible based on patient's age to complete this topic Rotavirus Vaccines Aged Out No longer eligible based on patient's age to complete this topic Procedures Procedure Name Priority Date/Time Associated Diagnosis Comments POCT GLYCATED HEMOGLOBIN, TOTAL Routine 04/18/2024 11:24 AM EST Type 2 diabetes mellitus with hyperosmolarity without coma, without long-term current use of insulin ([facility]) THINPREP IMAGING PAP AND HPV MRNA E6/E7 Routine 12/30/2023 12:00 AM EDT BI MAMMOGRAM SCREENING TOMOSYNTHESIS BILATERAL Routine 12/01/2022 10:50 AM EDT HEPATITIS PANEL, GENERAL Routine 10/27/2022 11:51 AM EDT Preventative health care HIV ANTIBODY/ANTIGEN ([place] DPH) Routine 10/27/2022 11:51 AM EDT ALBUMIN, RANDOM URINE W/CREATININE Routine 10/27/2022 11:51 AM EDT LIPID PANEL WITH REFLEX TO DIRECT LDL Routine 06/25/2022 10:38 AM EDT Type 2 diabetes mellitus with hyperglycemia, with long-term current use of insulin ([facility]) from Last 3 Months or Most Recently Relevant to Health Maintenance Results * (ABNORMAL) POCT HGB A1C (04/18/2024 11:24 AM EST) Hemoglobin A1C 15.0(A) 4.0 - 6.0 % QC Media Lot # [id number] Lot# Expiration Date Blood 04/18/2024 11:2 4 AM EST Daphne Cortez MD POINT OF CARE TEST ENTER /EDIT ORDERABLES Final Result * [facility] Pap and HPV mRNA E6/E7 (12/30/2023 12:00 AM EDT) Pathologist [facility] HPV nRNA E6/E7 Not Detected Not Detected [facility] Comment:Methodology: Transcr iption-Mediated AmplificationThis assay detects E6/E7 viral messenger RNA (mRNA) from 14high-risk HPV types (16,18,31,33,35,39,45,51,52,56,58,59,66,68).Cervical sources are required for HPV testing.If a vaginal source from a patient who has had atotal hysterectomy with removal of cervix wassubmitted, please contact the testing laboratoryfor alternative testing options.For additional information, please refer [email or web address]/ZOS039d1(This link if provided for information/educational purposes only.)THIS TEST WAS PERFORMED AT:[facility] [place] [id number] SCHILLING MD SOURCE: SEE NOTE [facility] Comment:None given Report Status: TNP [facility] Clinical Information: SEE NOTE [facility] Comment:None given LMP: SEE NOTE [facility] Comment:NONE GIVEN Prev. PAP: SEE NOTE [facility] Comment:NONE GIVEN Prev. BX: SEE NOTE [facility] Comment:NONE GIVEN Statement Of Adequacy: SEE NOTE [facility] Comment:Satisfactory for armen luation.Endocervical/transformation zone componentpresent. General Categorization: [facility] Interpretation/Result: SEE NOTE [facility] Comment:Cytology Results: Ne gative for intraepitheliallesion or malignancy. Cytology Comment SEE NOTE [facility] Comment:This Pap test has be en evaluated with computerassisted technology. Supervisor Air Conditioning Installer: SEE NOTE [facility] Comment:GSG, CT(ASCP)CT scre ening location: [place] [address] Review Supervisor Air Conditioning Installer: [facility] Pathologist [facility] PAP Infection [facility] See Note SEE NOTE [facility] Comment:EXPLANATORY NOTE:The Pap is a screening test for cervical cancer. It isnot a diagnostic test and is subject to false negativeand false positive results. It is most reliable when asatisfactory sample, regularly obtained, is submittedwith relevant clinical findings and history, and whenthe Pap result is evaluated along with historic andcurrent clinical information. 12/30/2023 12/30/2023 Narrative [facility] - 01/04/2024 3:14 PM EDT SEE SCANNED RESULTS IN EMR Daphne Cortez MD LAB PATHOLOGY ORDERABLES Final Result [facility] [address] [place] [phone] * BI Mammogram Screening Tomosynthesis Bilateral (12/01/2022 10:50 AM EDT) Anatomical Region Laterality Modality Breast Bilateral Mammography 12/01/2022 10:5 0 AM EDT Narrative 12/17/2022 8:36 AM EDT [facility] [address] [place] [address] Mammography Report Signed Patient: Reba Sofia MR#: [id number] : 1980 Acct:[id number] Age/Sex: 42 / F ADM Date: 12/01/22 Loc: HO.MAMMO Attending Dr: Daphne Cortez MD Ordering Physician: Daphne Cortez MD Results: 1Ne gative Date of Service: 12/01/22 Follow Up: 1 Year From Orig inal Mammogram Procedure(s): MM tomosynthesis screening BI Accession Number(s): [id number] cc: Daphne Cortez MD EXAMINATION: MM SCREENING DIGITAL BREAST TOMOSYNTHESIS, BILATERAL CLINICAL INFORMATION: Screening. Asymptomatic. COMPARISON: Mammography: This is a baseline study. TECHNIQUE: Digital breast tomosynthesis is performed in both the craniocaudal and mediolateral oblique views along with computer-aided detection (CAD). Synthesized 2D images are generated from the tomosynthesis. FINDINGS: The breasts are almost entirely fatty (ACR BI-RADS breast composition Category a). There are no significant masses, abnormal calcifications, or other abnormalities. MM/MM tomosynthesis screening BI IMPRESSION: No mammographic evidence of malignancy. ASSESSMENT: BI-RADS BI-RADS 1 - Negative RECOMMENDATION: Routine annual mammography screening. 1 year F/U This examination should not preclude the clinical evaluation of a suspicious palpable abnormality. This patient's information was entered into a reminder system with a target due date for their next mammogram. Dictated By: Arabella Caldera MD Signed By: <Electronically signed by Arabella Caldera MD in OV> 12/17/22 0832 DD/ 1050 TD/TT: Fancy Packer: Procedure Note Donotuseinterpreter, Image - 12/18/2022 [place] [facility] [address] [place] [address] Mammography Report Signed Patient: Anat Sofia#: [id number] : 1980Acct:[id number] Age/Sex: 42 / FADM Date: 12/01/22 Loc: [facility] Attending Dr: Daphne Cortez MD Ordering Physician: Daphne Cortez MDResults: 1Ne gative Date of Service: 12/01/22Follow Up: 1 Year From Orig inal Mammogram Procedure(s): MM tomosynthesis screening BI Accession Number(s): [id number] cc: Daphne Cortez MD EXAMINATION: MM SCREENING DIGITAL BREAST TOMOSYNTHESIS, BILATERAL CLINICAL INFORMATION: Screening. Asymptomatic. COMPARISON: Mammography: This is a baseline study. TECHNIQUE: Digital breast tomosynthesis is performed in both the craniocaudal and mediolateral oblique views along with computer-aided detection (CAD). Synthesized 2D images are generated from the tomosynthesis. FINDINGS: The breasts are almost entirely fatty (ACR BI-RADS breast composition Category a). There are no significant masses, abnormal calcifications, or other abnormalities. MM/MM tomosynthesis screening BI IMPRESSION: No mammographic evidence of malignancy. ASSESSMENT: BI-RADS BI-RADS 1 - Negative RECOMMENDATION: Routine annual mammography screening. 1 year F/U This examination should not preclude the clinical evaluation of a suspicious palpable abnormality. This patient's information was entered into a reminder system with a target due date for their next mammogram. Dictated By: Arabella Caldera MD Signed By: <Electronically signed by Arabella Caldera MD in OV> 12/17/22 0832 DD/ 1050 TD/TT: Fancy Packer: Daphne Cortez MD IMG BI PROCEDURES Edited Result - Final * HIV Ab/Ag ([facility]) (10/27/2022 11:51 AM EDT) HIV AB/AG Nonreactive Nonreactive [facility] Comment:HIV-1 p24 Ag and/or HIV-1/HIV-2 Ab not detected.A test result that is nonreactive does not exclude thepossibility of exposure to or infection with HIV-1 and/orHIV-2. Nonreactive results in this assay for individualswith prior exposure to HIV-1 and/or HIV-2 may be due toantigen and antibody levels that are below the limit ofdetection of this assay.The [facility] Medical Staff Physician HIV Ag/Ab Combo assay result andsupplemental assay results should be interpreted inconjunction with the patient's clinical presentation,history and other laboratory results. If the results areinconsistent with clinical evidence, additional testing issuggested to confirm the result. 10/27/2022 11:5 1 AM EDT 10/27/2022 1:02 PM EDT Daphne Cortez MD LAB BLOOD ORDERABLES Fin al Result Performing Organization Address [facility] de Phone Number [facility] [address] [place] [phone] Hepatitis Panel, General (10/27/2022 11:51 AM EDT) Hepatitis A IgM Nonreactive Nonreactive [facility] Comment:IgM antibodies to PINK V not detected; does not exclude earlyacute or recovered HAV infection. ~Hepatitis B Surface Antibody NONREACTIVE Nonreactive [facility] Comment:Nonreactive: < 8.00 mIU/mL Hepatitis B Core Antibody Nonreactive Nonreactive [facility] Hepatitis C Antibody Nonreactive Nonreactive [facility] Comment:Antibodies to HCV no t detected; does not exclude early acuteHCV infection. Hepatitis B Surface Ag Negative Negative [facility] Blood 10/27/2022 11:5 1 AM EDT 10/27/2022 1:02 PM EDT Daphne Cortez MD LAB BLOOD ORDERABLES Fin al Result Performing Organization Address [facility] de Phone Number [facility] [address] [place] [phone] * Albumin, Random Urine W/Creatinine (10/27/2022 11:51 AM EDT) Creatinine, Urine 275.17 mg/dL [facility] Microalbumin Urine 154.0 mg/L [facility] Microalbum Creatinine Ratio Ur 55.9 ug/mg cr [facility] Comment:Albumin/Creatinine R atio Reference Ranges: Normal: < 30 ug/mg creatinine Microalbuminuria: 30 - 300 ug/mg creatinineClinical Albuminuria: > 300 ug/mg creatinine 10/27/2022 11:5 1 AM EDT 10/27/2022 12:59 PM EDT Daphne Cortez MD LAB URINE ORDERABLES Fin al Result [facility] [address] [place] [phone] * (ABNORMAL) Lipid Panel with Reflex to Direct LDL (06/25/2022 10:38 AM EDT) Cholesterol, Total 233(H) <200 mg/dL [facility] HDL Cholesterol 46(L) > OR = 50 mg/dL [facility] [facility] Triglycerides 233(H) <150 mg/dL [facility] Comment: If a non-fasting specimen was collected, consider repeat triglyceride testing on a fasting specimen if clinically indicated. Renetta et al. J. of Clin. Lipidol. 2015;9:129-169. LDL Cholesterol 149(H) mg/dL (calc) [facility] [address] Comment: Reference range: <100 Desirable range <100 mg/dL for primary prevention; <70 mg/dL for patients with CHD or diabetic patients with > or = 2 CHD risk factors. LDL-C is now calculated using the Cesar-Samantha calculation, which is a validated novel method providing better accuracy than the Friedewald equation in the estimation of LDL-C. Cesar SS et al. CAMI. 2013;310(19): 3482-7351 (http://education.[employer].[place]/faq/XLJ642) Chol/HDLC Ratio 5.1(H) <5.0 (calc) [facility] Non-HDL Cholesterol 187(H) <130 mg/dL (calc) [facility] [facility] Comment: For patients with diabetes plus 1 major ASCVD risk factor, treating to a non-HDL-C goal of <100 mg/dL (LDL-C of <70 mg/dL) is considered a therapeutic option. 06/25/2022 10:3 8 AM EDT 06/25/2022 10:38 AM EDT Narrative [facility] - 06/29/2022 11:02 PM EDT FASTING:YES FASTING: YES Daphne Cortez MD LAB BLOOD ORDERABLES Fin al Result [facility] [address], [place] [phone] [facility] [address] [place] [phone] from Last 3 Months or Most Recently Relevant to Health Maintenance Care Teams Supervisor Contingents Relationship Specialty Start Date End Date Daphne Cortez MD [address] [place] [address] PCP - General Family Medicine 11/02/19 Jw Degroot, DannyD [address] [place] [address] Pharmacist Internal Medicine 11/29/23
== END 2025-02-13 18:25 | disposition home or self-care (01) ==
PROVIDERS: Emergency Provider Student in an Organized Health Care Education/Training Program
DX: F41.9 Anxiety disorder, unspecified (principal); R11.2 Nausea with vomiting, unspecified; R10.9 Unspecified abdominal pain; F12.90 Cannabis use, unspecified, uncomplicated; I12.9 Hypertensive chronic kidney disease with stage 1 through stage 4 chronic kidney disease, or unspecified chronic kidney disease; E11.22 Type 2 diabetes mellitus with diabetic chronic kidney disease; N18.9 Chronic kidney disease, unspecified; E78.5 Hyperlipidemia, unspecified; Z79.899 Other long term (current) drug therapy
CPT/HCPCS: 36415; 80053; 80307; 81001; 81025; 85025; 87086; 96372; 96374; 96375; 99283; 99284; J1630; J2250; J2405; J3010; J7120